=== PATIENT | female | born 1945 | race Caucasian/White ===

== ENCOUNTER 2016-10-22 05:17 | Inpatient (IN) | payer OTHER, MEDICARE ==
[2016-09-26 11:13] VITALS: BMI 24.0
--- NOTE | 2016-09-26 11:50 | PAT Medication Instructions ---
Service Date Sep 26, 2016. Current Home Medication List Aspirin (Aspirin Ec), 81 MG PO QPM Atorvastatin (Lipitor), 20 MG PO HS Bimatoprost Oph (Lumigan 0.03% Oph), 1 DROP OPR QAM Brimonidine Tartrate-Timolol M (Combigan), 1 DROP OPR BID Ciprofloxacin (Cipro *), 500 MG PO BID Docusate Sodium (Colace), 1 CAP PO PRN Escitalopram (Lexapro), 10 MG PO QAM Naproxen (Aleve), 220 MG PO PRN Medication Instructions For Your Scheduled Surgery Ciprofloxacin (Cipro *), 500 MG PO BID (to be completed prior to surgery) - Check with surgeon for instructions: Naproxen (Aleve), 220 MG PO PRN Aspirin (Aspirin Ec), 81 MG PO QPM - Hold the following medications the morning of surgery: Docusate Sodium (Colace), 1 CAP PO PRN - Take the following medications the morning of surgery with a sip of water: Escitalopram (Lexapro), 10 MG PO QAM Brimonidine Tartrate-Timolol M (Combigan), 1 DROP OPR BID Bimatoprost Oph (Lumigan 0.03% Oph), 1 DROP OPR QAM - Take the following medications as scheduled the night before surgery: Docusate Sodium (Colace), 1 CAP PO PRN Brimonidine Tartrate-Timolol M (Combigan), 1 DROP OPR BID Atorvastatin (Lipitor), 20 MG PO HS If you have any questions please call us at [phone] (Cinthya Connor PA-C) or [phone] or [phone]
[2016-09-26 12:22] LABS: BASO % 0.2 %; BASO ABS # 0.02 K/uL (0-0.2); COMPLETE YES; EOS % 0.6 %; HEMATOCRIT 43.2 % (37-47); IG% 0.2 %; LYMPH % 15.2 %; LYMPH ABS # 1.43 K/uL (1.2-3.4); MEAN CELL VOLUME 94.9 fL (80-100); MEAN CORPUSCULAR HEMOGLOBIN 31.4 pg (25-34); MEAN CORPUSCULAR HGB CONC 33.1 g/dl (32-36); MEAN PLATELET VOLUME 9.5 fL (7.4-10.4); NEUT % 78.8 %; PLATELET COUNT 297 K/uL (130-400); RED BLOOD COUNT 4.55 M/uL (4.2-5.4); WHITE BLOOD COUNT 9.43 K/uL (4.8-10.8)
[2016-09-26 12:26] LABS: URINE APPEARANCE CLEAR (CLEAR); URINE BILIRUBIN NEG (NEG); URINE COLOR YELLOW; URINE NITRITE NEG (NEG); URINE SPECIFIC GRAVITY 1.014 (1.000-1.030); UROBILINOGEN NEG (NEG)
[2016-09-26 12:29] LABS: MANUAL MICROSCOPIC REQUIRED? NO; REVIEW REQ? NO
[2016-09-26 12:53] LABS: BUN/CREATININE RATIO 30.7 (10-20); CREATININE 0.67 mg/dl (0.60-1.20); POTASSIUM 3.7 mmol/L (3.5-5.1)
[2016-10-22] VITALS (8 sets, daily range): BP systolic 115–149; BP diastolic 68–84; PULSE 69–86; TEMP 36.3–36.8; O2SAT 92–100; Ht 154.9 cm; Wt 58.7 kg
[~2016-10-22] VITALS: Ht 154.9 cm; Wt 58.7 kg
[~2016-10-22 05:17] MED LIST: ASPI81TA28 PO; ATOR-22 PO; BIMA0.038 OPR; BRIM0.2S OPR; CPR500 PO; DOCU-94 PO; ESCI10TA17 PO; NAPR1TAB9 PO
[2016-10-22] MEDS ORDERED: LACTATED RINGER'S 1000ML 1,000 ML IV SCH (06:00)
[2016-10-22] MEDS ORDERED: CEFAZOLIN 2000 MG/60 ML D5W 60 ML IV SCH (06:00)
[2016-10-22] MEDS ORDERED: CeleBREX 200 MG CAP PO SCH (06:00)
[2016-10-22] MEDS ORDERED: PREGABALIN 75 MG CAP PO SCH (06:00)
[2016-10-22] MEDS ORDERED: NEOSTIGMINE METHYLSULFATE 5 MG/5 ML SYR ONE (06:22)
[2016-10-22] MEDS ORDERED: FENTANYL CITRATE INJ 50 MCG/1 ML 2 ML VIAL ONE ×2 (06:22→09:56)
[2016-10-22] MEDS ORDERED: ROCURONIUM BROMIDE 10 MG/ML 5 ML VIAL ONE ×2 (06:22→08:50)
[2016-10-22] MEDS ORDERED: DEXAMETHASONE SOD INJ 4 MG/ML VIAL ONE (06:22)
[2016-10-22] MEDS ORDERED: MIDAZOLAM HCL 1 MG/ML 2ML VIAL ONE (06:22)
[2016-10-22] MEDS ORDERED: ONDANSETRON INJ 2 MG/ML 2 ML VIAL ONE (06:22)
[2016-10-22] MEDS ORDERED: LIDOCAINE HCL 2% 2 ML VIAL (20MG/ML) ONE (06:22)
[2016-10-22] MEDS ORDERED: PROPOFOL IV EMULSION 10 MG/ML 20 ML VIAL IV ONE (06:22)
[2016-10-22] MEDS ORDERED: GLYCOPYRROLATE INJ 0.2 MG/ML VIAL ONE (06:22)
--- NOTE | 2016-10-22 07:22 | History and Physical ---
History & Physical Date Oct 22, 2016. Chief Complaint LBP and gonzales hip pain History of Present Illness The patient is a 70 year old female with complaints of above for months that severely limit ambulation. She had a prior fusion L4-S1 and did well for a number of years but has now developed degen scoliosis above the fusion and L3-4 spinal stenosis. Failed to see improvement with PT/ESIs. Past Medical/Surgical History lumbar fusion colonoscopy hi chol OA nephrolithiasis current smoker Additional History Hepatic Disease: No Endocrine Disorder: No Kidney Disease: No Hypertension: No Heart Disease: No Bleeding Tendencies: No Infectious Diseases: No Allergies Coded Allergies: Simvastatin (Verified Allergy, Intermediate, rash, 10/22/16) Home Medications Scheduled Aspirin (Aspirin Ec), 81 MG PO QPM Atorvastatin (Lipitor), 20 MG PO HS Bimatoprost Oph (Lumigan 0.03% Oph), 1 DROP OPR QAM Brimonidine Tartrate-Timolol M (Combigan), 1 DROP OPR BID Docusate Sodium (Colace), 1 CAP PO PRN Escitalopram (Lexapro), 10 MG PO QAM Naproxen (Aleve), 220 MG PO PRN Physical Examination Skin: warm/dry Eyes: normal inspection ENT: normal ENT inspection Head: normocephalic, atraumatic Neck: supple, trachea midline Respiratory/Chest: lungs clear, no respiratory distress Cardiovascular: regular rate, rhythm Back: normal inspection (midline scar) Extremities: normal inspection Neurologic/Psych: no motor/sensory deficits, alert, normal reflexes, oriented x 3 Diagnosis Degen scoliosis/L3-4 stenosis/prior fusion L4-S1 Plan of Treatment possible HWR L4-S1, decompression L3-4, extension of fusion to probable L1
[2016-10-22] MEDS ORDERED: OXYC-57 PO (07:26)
--- NOTE | 2016-10-22 07:27 | Discharge Instructions ---
Discharge Instructions Admission Reason for Admission: Lumbar Spinal Stenosis Discharge Discharge Diagnosis / Problem: Lumbar Stenosis Discharge Goals Goal(s): Decrease discomfort, Improve function, Increase independence Activity Recommendations Activity Limitations: as noted below Lifting Limitations: no more than 5 pounds Exercise/Sports Limitations: until after follow-up appointment May Resume Sexual Activity: after follow-up appointment . Instructions / Follow-Up Instructions / Follow-Up ACTIVITY RECOMMENDATIONS: SELF CARE INSTRUCTIONS AFTER THORACIC/LUMBAR FUSIONS 1. You may walk to your tolerance. It is good exercise for your legs and back. Expect some back and intermittent leg aches and pains. 2. You may perform "counter-top" level activities (make a sandwich, gloria with a project, etc.). 3. No bending or lifting of more than 10 pounds or back twisting of any nature (roll like a log when turning in bed). 4. You may ride in a car for 20-30 minutes at a time. No driving until after your first visit with your doctor. 5. Frequent changes of position and restricting sitting to 30 minutes at a time will help limit the amount of back spasms and stiffness you may experience. 6. You may discontinue the use of ambulatory aids (cane, crutches, etc.) once your strength and confidence allow. 7. You may platinum smith the shower and let water strike your incision when you arrive home at least once daily. Do not take a tub bath, sit in a hot tub or go into a swimming pool until after your first recheck in the office. SPECIAL CARE INSTRUCTIONS: VERY IMPORTANT TO READ AND REVIEW A. Your surgical incision has been closed with a cosmetic suture under the skin that will dissolve in about 6 weeks. In 14 days, you can use a pair of clean scissors and cut the suture that is left outside of the skin at the ends of your incision. 1. The small skin tapes can be removed 7 days after surgery if they have not fallen off by that point. 2. You may keep the wound open to air as much as possible to promote healing after post-op day number 5 unless told otherwise by your doctor. 3. If you think the wound looks like it is becoming infected (redness or worsening drainage) and/or you are experiencing fever, chill or worsening back pain and muscle spasms, contact the office so that we may evaluate you as soon as possible. B. Complications are uncommon, but please contact us if you have any signs or symptoms of: 1. wound infection (fever higher than 102.5 degrees F, redness, separation of wound, drainage, or increasing pain from the incision) 2. blood clots in legs (pain, swelling, redness and warmth in legs) 3. urinary tract infection (fever higher than 102.5 degrees F, burning upon urination or increased frequency of urination) 4. nerve problems (inability to walk on your toes or heels, numbness, loss of bowel or bladder control) 5. any other symptoms that concern you C. Please call the office at if you have any concerns or questions about your operation or recovery. D. No smoking! Smoking drastically decreases the chance of a solid fusion. E. Do not take any anti-inflammatory medications (Indocin, Advil, Motrin, Aspirin, Naprosyn, etc.) as these may inhibit the chance of a solid fusion. Tylenol is okay to take for pain. MANAGING PAIN AFTER SPINAL SURGERY 1. Narcotic medication is intended for short-term use and will be provided for surgical pain. Surgical pain usually lasts for a period of 4-6 weeks. Narcotic medication includes Percocet, Vicodin, Darvocet, Tylenol #3 or Lortab. 2. Longer-term pain is more appropriately treated with non-narcotic medication such as Tylenol ES. 3. Muscle spasm is not appropriately treated with narcotics. Muscle relaxers such as Soma, Flexeril or Skelaxin can be used along with Tylenol ES. 4. Remember that we all live with some "aches and pains". This is not unusual or uncommon after an injury or as we get older. a. Back pain is expected and may include muscle spasms for 4 to 6 weeks after surgery. The pain should gradually improve. If the pain worsens for no apparent reason, please contact the office. b. Intermittent leg pain may also be experienced and should not be concerned about unless it worsens for no apparent reason. If so, please contact the office. 5. We will provide appropriate medication within the normal guidelines of their prescribed use. We will also be very cautious and aware of potential abuse and extended duration of patients' medication needs. a. Pain medications are for your comfort and to assist with sleep and rest so that the tissue can heal. They are not provided in order to return to normal activity and should not be used through the day. To do so or worsening pain at night can result from ongoing tissue damage and development of tolerance to the prescribed medicine. 6. Please allow 2-3 days to process refills. Prescriptions will not be mailed but must be picked up at the office. FOLLOW UP VISIT: Keep your scheduled follow-up appointment. Any questions, please call the office at . Current Hospital Diet Patient's current hospital diet: Discharge Diet Recommended Diet: Regular Diet Pending Studies Studies pending at discharge: no Medical Emergencies . Who to Call and When: Medical Emergencies: If at any time you feel your situation is an emergency, please call 911 immediately. . Non-Emergent Contact Non-Emergency issues call your: Surgeon Call Non-Emergent contact if: temperature is above 101, your pain is not controlled, your pain is worsening, your pain is unusual for you, your pain is concerning you, wound has increased drainage, wound has increased redness, wound has increased pain, you have any medication questions . "Provider Documentation" section prepared by Celso Guzman. VTE Core Measure Inpt VTE Proph given/why not?: Evon Estrada
[2016-10-22] MEDS ORDERED: BACITRACIN 50000 UNIT VIAL IR ONE (08:15)
[2016-10-22] MEDS ORDERED: THROMBIN 5000 UNITS KIT TOP ONE (08:15)
[2016-10-22] MEDS ORDERED: BUPIVACAINE/EPINEPHRINE 0.5% MPF 1:200,000 30 ML VIAL INJ ONE (08:15)
[2016-10-22] MEDS ORDERED: THROMBIN FOR SOLN 20000 UNIT KIT TOP ONE ×2 (08:15→08:33)
[2016-10-22] MEDS ORDERED: DURASEAL DURAL SEALANT 5ML TOP ONE (09:15)
--- NOTE | 2016-10-22 09:16 | [facility] Post Operative Brief Note ---
Immediate Operative Summary Operative Date Oct 22, 2016. Pre-Operative Diagnosis Degenerative scoliosis, L3-4 stenosis, prior fusion L4-S1 Post-Operative Diagnosis Degenerative scoliosis, L3-4 stenosis, prior fusion L4-S1 Procedure(s) Performed L3-L4 Decompression, L1-L3 Decompression Posterior Spinal Fusion; Infuse; Arteriocyte; Allograft. Surgeon Dr. Naveen Charles Architectural Associate Surgeon(s) Celso Guzman PA-C Estimated Blood Loss 150ML Findings dict Specimens None per surgeon
--- NOTE | 2016-10-22 09:28 | DIAGNOSTIC IMAGING REPORT ---
LUMBAR SPINE, INTRAOPERATIVE FLUOROSCOPY HISTORY: L1-L3 decompression and fusion. FLUOROSCOPY TIME: 8 seconds. FINDINGS: Intraoperative fluoroscopy was provided for the lumbar spine. 2 fluoroscopic spot images were obtained. There is L1-L3 posterior decompression and fusion which is connected to the lower lumbar spine fusion. Hardware appears intact. IMPRESSION: Fluoroscopy provided for a L1-L3 posterior decompression and fusion. Electronically signed by: Guy Fermin M.D. 10/22/2016 9:25 AM Dictated Date/Time: 10/22/2016 9:24 AM
[2016-10-22] MEDS ORDERED: LORAZEPAM 0.5 MG TAB PO PRN (09:30)
[2016-10-22] MEDS ORDERED: HYDROmorphone INJ 0.5 MG/0.5 ML SYR IV PRN (09:30)
[2016-10-22] MEDS ORDERED: EpHEDrine SULFATE INJ 50 MG/ML AMP IV PRN (09:30)
[2016-10-22] MEDS ORDERED: SOD PHOSPHATE/SOD BIPHOSPHATE ENEMA 132 ML BTL PR PRN (09:30)
[2016-10-22] MEDS ORDERED: hydrOXYzine HCL 25 MG TAB PO PRN (09:30)
[2016-10-22] MEDS ORDERED: MAGNESIUM HYDROXIDE SUSP 30 ML UDC PO PRN (09:30)
[2016-10-22] MEDS ORDERED: ALUMINUM/MAGNESIUM SUSP 30 ML UDC PO PRN (09:30)
[2016-10-22] MEDS ORDERED: ONDANSETRON INJ 2 MG/ML 2 ML VIAL IV PRN ×2 (09:30)
[2016-10-22] MEDS ORDERED: BISACODYL 10 MG SUPP PR PRN (09:30)
[2016-10-22] MEDS ORDERED: LORAZEPAM INJ 0.5 MG in SYRINGE 0 ML IV PRN (09:30)
[2016-10-22] MEDS ORDERED: METOCLOPRAMIDE HCL INJ 5 MG/ML 2 ML VIAL IV PRN (09:30)
[2016-10-22] MEDS ORDERED: FENTANYL CITRATE INJ 50 MCG/1 ML 2 ML VIAL IV PRN (09:30)
[2016-10-22] MEDS ORDERED: FAMOTIDINE 20 MG TAB PO PRN (09:30)
[2016-10-22] MEDS ORDERED: ATROPINE SULFATE 0.1 MG/ML 5ML SYR IV PRN (09:30)
[2016-10-22] MEDS ORDERED: ACETAMINOPHEN IV 100 ML IV PRN (09:30)
[2016-10-22] MEDS ORDERED: MoRPHine SULFATE 10 MG/ML CARP/VIAL IV PRN (09:30)
[2016-10-22] MEDS ORDERED: PROMETHAZINE HCL INJ 12.5 MG in SODIUM CHLORIDE 0.9% 50ML 50 ML IV PRN (09:30)
[2016-10-22] MEDS ORDERED: NALOXONE HCL 0.4 MG/1 ML VIAL/CARP IV PRN ×2 (09:30)
[2016-10-22] MEDS ORDERED: MoRPHine SULFATE 1 MG/ML 50 ML PCA CASS ONE (09:34)
--- NOTE | 2016-10-22 10:16 | Anesthesiology Progress Note ---
Anesthesia Post Op Note Date & Time Oct 22, 2016 at 10:15 Vital Signs Pain Intensity: 3 Vital Signs Past 12 Hours Date Time Temp Pulse Resp B/P Pulse Ox O2 Delivery O2 Flow Rate FiO2 10/22/16 10:10 36.8 77 14 127/70 100 Nasal Cannula 4 10/22/16 10:00 74 14 138/76 100 Nasal Cannula 4 10/22/16 09:50 81 14 137/81 100 Mask 10 10/22/16 09:40 83 12 133/76 100 Mask 10 10/22/16 09:30 36.7 88 12 139/72 100 Mask 10 10/22/16 05:42 36.8 76 18 149/84 100 Room Air Notes Mental Status: alert / awake / arousable, participated in evaluation Pt Amnestic to Procedure: Yes Nausea / Vomiting: adequately controlled Pain: adequately controlled Airway Patency, RR, SpO2: stable & adequate BP & HR: stable & adequate Hydration State: stable & adequate Anesthetic Complications: no major complications apparent
--- NOTE | 2016-10-22 11:00 | OPERATIVE REPORT ---
DATE OF OPERATION: 10/22/2016 PREOPERATIVE DIAGNOSES: 1. Previous L4-S1 instrumented fusion. 2. Lumbar degenerative scoliosis. 3. Degenerative disc disease L1-L4. 4. L3-L4 spinal stenosis. POSTOPERATIVE DIAGNOSIS: Same. PROCEDURES: 1. L3 laminectomy with bilateral L3-L4 medial facetectomies. 2. Segmental pedicle screw instrumentation -- bilateral L1, L2 and on the left at L3 with serena connection to L4-L5. 3. Posterior lateral fusion L1-L4 -- bilateral with Infuse BMP on a collagen sponge, tricalcium phosphate, local bone, bone putty and bone marrow aspirate. 4. Right iliac crest bone marrow aspiration and stem cell concentration with Arteriocyte. SURGEON: Dr. Charles. REAL ESTATE SERVICES ADMINISTRATOR: Celso Guzman PA-C. Please note he participated in all portions of the procedure and was critical for performance of the procedure, participated in positioning, prepping, draping, retraction and wound closure. ANESTHESIA: General endotracheal anesthesia. COMPLICATIONS: None. ESTIMATED BLOOD LOSS: Per anesthesia record. OPERATION AND FINDINGS: PROCEDURE: After identification of patient and operative level, she was brought to the OR where she underwent induction of general anesthesia. She was then positioned prone on Thiago OR table with all bony prominences well padded. Care was taken to avoid pressure on the periorbital area. Lumbosacral area was sterilely prepped and draped in usual fashion. Antibiotics were administered. Time-out was performed. Level was confirmed and skin incision made from spinous process of T12-L5. Posterior exposure was accomplished, previous hardware was identified and operative levels were marked. I did an L3 laminectomy with removal of the L3-L4 facets medially and accomplished decompression with removal of ligamentum flavum using Kerrisons. I did encounter a small durotomy centrally at L3-L4 which repaired directly with 6-0 Prolene suture. There was no leak after repair. I applied DuraSeal over the area of leak. No leak was noted at the end of the case. I then proceeded to place pedicle screws bilaterally at L1, L2 and on the left at L3. I did place a screw on the right at L3, but could not connect the rods to the hardware below so I remove the L3 screw on the right to facilitate serena reintroduction. I exposed the fusion mass at L4-5. There was good fusion and I made room to attach connectors on the serena between the L4 and L5 pedicle screws. I then connected rods and these connectors to the cephalad screws bilaterally. I final tightened all screws during introduction of rods. I did correct scoliosis slightly with contamination compression distraction. I then final tightened all screws, applied a crosslink which final tightened, irrigated with bacitracin solution and decorticated the remaining facets and transverse processes from L1 to L4 bilaterally with a high speed randal. I then aspirated bone marrow from the right iliac crest via separate stab incision with a Jamshidi needle concentrated with Arteriocyte and applied to bone graft microbial specialist and applied bone graft described as above in the lateral gutters from L1 to L4 bilaterally. I then closed in layered fashion over JAMEY drain. All sponge and needle counts were correct at the end of the case. I attest to the content of the Intraoperative Record and any orders documented therein. Any exceptio ns are noted below.
[2016-10-22] MEDS: SODIUM CHLORIDE 0.9% 1000ML 1,000 ML IV SCH ×3 (13:49→21:39)
[2016-10-22] MEDS: DEXAMETHASONE INJ 6 MG in SYRINGE 0 ML IV SCH ×2 (13:54→21:38)
[2016-10-22] MEDS: [UNRECOGNIZED DRUG - REMARK] SCH (16:00)
[2016-10-22] MEDS: CEFAZOLIN IV 1,000 MG in DEXTROSE 5% 50ML 50 ML IV SCH (16:09)
[2016-10-22] MEDS: MoRPHine SULFATE 1 MG/ML 50 ML PCA CASS IV PRN (19:04)
[2016-10-22] MEDS: DOCUSATE SODIUM/SENNA 50/8.6MG TAB PO SCH (21:37)
[2016-10-22] MEDS: ASPIRIN 81 MG ECTAB PO SCH (21:37)
[2016-10-22] MEDS: ATORVASTATIN 20 MG TAB PO SCH (21:37)
[2016-10-23] MEDS: CEFAZOLIN IV 1,000 MG in DEXTROSE 5% 50ML 50 ML IV SCH (00:34)
[2016-10-23 03:20] VITALS: BP 119/70; PULSE 76; TEMP 36.8; O2SAT 95
[2016-10-23] MEDS: DEXAMETHASONE INJ 6 MG in SYRINGE 0 ML IV SCH (05:33)
[2016-10-23 06:09] LABS: COMPLETE YES; HEMATOCRIT 33.4 % (37-47); IG% 0.2 %; LYMPH % 5.1 %; MEAN CELL VOLUME 95.7 fL (80-100); MEAN CORPUSCULAR HEMOGLOBIN 31.2 pg (25-34); MEAN CORPUSCULAR HGB CONC 32.6 g/dl (32-36); MEAN PLATELET VOLUME 9.5 fL (7.4-10.4); MONO % 5.1 %; NEUT % 89.6 %; PLATELET COUNT 226 K/uL (130-400); RED BLOOD COUNT 3.49 M/uL (4.2-5.4)
[2016-10-23] MEDS ORDERED: NURSING VERBAL MED ORDER ONE ×3 (06:30→10:30)
[2016-10-23 06:41] LABS: BUN/CREATININE RATIO 20.3 (10-20); CALCIUM 8.4 mg/dl (8.5-10.1); CREATININE 0.64 mg/dl (0.60-1.20); POTASSIUM 4.3 mmol/L (3.5-5.1)
[2016-10-23] MEDS: MoRPHine SULFATE 1 MG/ML 50 ML PCA CASS IV PRN (07:02)
[2016-10-23 07:50] VITALS: O2SAT 95
[2016-10-23] MEDS: [UNRECOGNIZED DRUG - REMARK] SCH ×4 (07:54→22:53)
[2016-10-23] MEDS: ESCITALOPRAM OXALATE 10 MG TAB PO SCH (07:55)
[2016-10-23] MEDS: BIMATOPROST 0.01% OP SOLN 2.5 ML BTL OPR SCH (07:55)
[2016-10-23 08:23] VITALS: BP 137/82; PULSE 71; TEMP 36.7; O2SAT 97
[2016-10-23] MEDS: SODIUM CHLORIDE 0.9% 1000ML 1,000 ML IV SCH (09:14)
--- NOTE | 2016-10-23 10:40 | Anesthesiology Progress Note ---
Anesthesia Post Op Note Date & Time Oct 23, 2016 at 10:39 Vital Signs Pain Intensity: 1.0 Vital Signs Past 12 Hours Date Time Temp Pulse Resp B/P Pulse Ox O2 Delivery O2 Flow Rate FiO2 10/23/16 08:23 36.7 71 16 137/82 97 Room Air 10/23/16 07:50 95 Room Air 10/23/16 03:20 36.8 76 18 119/70 95 Room Air 10/22/16 23:35 36.4 72 18 133/77 94 Room Air Notes Mental Status: alert / awake / arousable, participated in evaluation Pt Amnestic to Procedure: Yes Nausea / Vomiting: adequately controlled Pain: adequately controlled Airway Patency, RR, SpO2: stable & adequate BP & HR: stable & adequate Hydration State: stable & adequate Anesthetic Complications: no major complications apparent
--- NOTE | 2016-10-23 12:18 | Orthopedic Progress Note ---
Orthopedic Progress Note Date of Service Oct 23, 2016. Subjective Post OP Day: 1 Reports: feeling well, pain controlled w PO medications, Denies: SOB, calf pain , chest pain, complaints, light headedness, nausea / vomiting Additional Notes: Doing well, pain is well controlled, she reports no issues, medically stable. Objective calves soft nontender, N/V intact, capillary refill less than 2 sec., dressing C /D/I, toes mobile, hemovac drainage Date Time Temp Pulse Resp B/P Pulse Ox O2 Delivery O2 Flow Rate FiO2 10/23/16 08:23 36.7 71 16 137/82 97 Room Air 10/23/16 07:50 95 Room Air 10/23/16 03:20 36.8 76 18 119/70 95 Room Air 10/22/16 23:35 36.4 72 18 133/77 94 Room Air 10/22/16 20:40 Room Air 10/22/16 19:52 36.6 86 16 117/68 92 Room Air 10/22/16 15:23 36.6 69 16 127/75 97 Nasal Cannula 2.0 10/22/16 13:52 36.7 81 16 123/74 100 Nasal Cannula 2.0 10/22/16 12:45 36.4 79 16 118/78 100 4.0 Laboratory Results 24 Hours: Test 10/23/16 05:38 White Blood Count 13.60 K/uL Red Blood Count 3.49 M/uL Hemoglobin 10.9 g/dL Hematocrit 33.4 % Mean Corpuscular Volume 95.7 fL Mean Corpuscular Hemoglobin 31.2 pg Mean Corpuscular Hemoglobin Concent 32.6 g/dl Platelet Count 226 K/uL Mean Platelet Volume 9.5 fL Neutrophils (%) (Auto) 89.6 % Lymphocytes (%) (Auto) 5.1 % Monocytes (%) (Auto) 5.1 % Eosinophils (%) (Auto) 0.0 % Basophils (%) (Auto) 0.0 % Neutrophils # (Auto) 12.18 K/uL Lymphocytes # (Auto) 0.70 K/uL Monocytes # (Auto) 0.69 K/uL Eosinophils # (Auto) 0.00 K/uL Basophils # (Auto) 0.00 K/uL Assessment & Plan Assessment: s/p decompression and revision lumbar fusion Plan: Pain control, PT, DVT prophylaxis, Soc Service Consult, Disposition pending
[2016-10-23] MEDS: OXYCODONE HCL IR 5 MG TAB (IMMEDIATE RELEASE) PO PRN (15:37)
[2016-10-23 15:45] VITALS: BP 154/78; PULSE 71; TEMP 36.5; O2SAT 98
[2016-10-23] MEDS: DOCUSATE SODIUM/SENNA 50/8.6MG TAB PO SCH (20:31)
[2016-10-23] MEDS: ATORVASTATIN 20 MG TAB PO SCH (20:32)
[2016-10-23] MEDS: ASPIRIN 81 MG ECTAB PO SCH (20:32)
[2016-10-23 23:45] VITALS: BP 152/92; PULSE 75; TEMP 36.6; O2SAT 94
[2016-10-24] MEDS: OXYCODONE HCL IR 5 MG TAB (IMMEDIATE RELEASE) PO PRN ×2 (05:45→11:22)
[2016-10-24] MEDS ORDERED: POLYETHYLENE (MIRALAX) 17 GM PACK PO SCH (06:00)
--- NOTE | 2016-10-24 07:05 | Orthopedic Progress Note ---
Orthopedic Progress Note Date of Service Oct 24, 2016. Subjective Reports: feeling well, pain controlled w PO medications, Denies: SOB, calf pain , chest pain, complaints, light headedness, nausea / vomiting Additional Notes: Doing well, walking halls w/o assistance, no new issues, remains medically stable. Objective calves soft nontender, N/V intact, capillary refill less than 2 sec., dressing C /D/I, A&O x3, toes mobile, hemovac drainage Date Time Temp Pulse Resp B/P Pulse Ox O2 Delivery O2 Flow Rate FiO2 10/23/16 23:45 36.6 75 16 152/92 94 Room Air 10/23/16 19:15 Room Air 10/23/16 15:45 36.5 71 16 154/78 98 Room Air 10/23/16 08:23 36.7 71 16 137/82 97 Room Air 10/23/16 07:50 95 Room Air Assessment & Plan Assessment: s/p decompression and revision lumbar fusion Plan: Pain control, PT, DVT prophylaxis, Disposition pending
[2016-10-24 07:21] VITALS: BP 114/67; PULSE 78; TEMP 36.5; O2SAT 96
[2016-10-24] MEDS: [UNRECOGNIZED DRUG - REMARK] SCH (08:00)
[2016-10-24] MEDS: BIMATOPROST 0.01% OP SOLN 2.5 ML BTL OPR SCH (08:07)
[2016-10-24] MEDS: ESCITALOPRAM OXALATE 10 MG TAB PO SCH (08:07)
[2016-10-24 12:38] VITALS: BP 114/67; PULSE 78; TEMP 36.5; O2SAT 96
--- NOTE | 2016-11-04 11:23 | DISCHARGE SUMMARY ---
PRINCIPAL DIAGNOSIS: Previous L4-S1 instrumented fusion, lumbar degenerative scoliosis, degenerative disc disease L1-L4, L3-L4 spinal stenosis. POSTOPERATIVE DIAGNOSIS: Remains the same. PROCEDURE: L3 laminectomy with bilateral L3-L4 medial facetectomies, pedicle screw instrumentation, bilateral, L1, L2 and L3 with serena connection to L4-L5, posterolateral fusion L1-L4. Right iliac crest bone marrow aspiration with stem cell concentration. SURGEON: Dr. Naveen Charles. HEALTHCARE SCIENCE SPECIALIST: Celso Guzman PA-C. HISTORY OF PRESENT ILLNESS: Please refer to EMR. HOSPITAL COURSE: On 10/22/2016 Ms. Perez was admitted to [facility] for the above procedure. She was taken to preoperative holding where she was identified, evaluated and cleared for surgical management. She was transported to the operating room, introduced with general endotracheal anesthesia. Sterile conditions were set and she successfully underwent the procedure without complication or issue. She was awakened in stable and satisfactory condition, taken to postoperative recovery. Here her vital signs and pain were monitored and managed properly. She remained medically stable and was taken to the orthopedic floor for continued postoperative care. Throughout her stay, her pain was well managed. Vital signs and labs were routinely monitored and managed through physician direction. She participated in physical therapy with good noted progress. DVT and GI prophylactic measures were taken. On the date of 10/24/2016 after provider evaluation she was indicated for return home. On this date, she was discharged from [facility]. DISPOSITION: Home. DISPOSITION CONDITION: Stable. NOTED COMPLICATIONS OR ISSUES: Zero. DISCHARGE INSTRUCTIONS: Please refer to EMR.
== END 2016-10-24 13:30 | disposition home health service (06) | DRG 457 ==
LOC: ENRESERVTM → ENRESERVDT → C.ACU 05:17 → C.MSN 07:55
PROVIDERS: ADMIT Orthopaedic Surgery Orthopaedic Surgery of the Spine; ATTEND Orthopaedic Surgery Orthopaedic Surgery of the Spine
PROC: 00Q20ZZ Repair Dura Mater, Open Approach (ICD-10-PCS; principal; 2016-10-22 07:30)
PROC: 0SG0071 Fusion of Lumbar Vertebral Joint with Autologous Tissue Substitute, Posterior Approach, Posterior Column, Open Approach (ICD-10-PCS; principal; 2016-10-22 07:30)
PROC: 0SG10J1 Fusion of 2 or more Lumbar Vertebral Joints with Synthetic Substitute, Posterior Approach, Posterior Column, Open Approach (ICD-10-PCS; principal; 2016-10-22 07:30)
PROC: 3E0V0GB Introduction of Recombinant Bone Morphogenetic Protein into Bones, Open Approach (ICD-10-PCS; principal; 2016-10-22 07:30)
PROC: 07DR3ZZ Extraction of Iliac Bone Marrow, Percutaneous Approach (ICD-10-PCS; principal; 2016-10-22 07:30)
DX: M41.9 Scoliosis, unspecified (principal); G97.41 Accidental puncture or laceration of dura during a procedure; M48.06 Spinal stenosis, lumbar region; M51.36 Other intervertebral disc degeneration, lumbar region; F17.200 Nicotine dependence, unspecified, uncomplicated

== ENCOUNTER 2016-12-22 10:10 | Inpatient (IN) | payer OTHER, MEDICARE ==
[~2016-12-22] VITALS: Ht 154.9 cm; Wt 57.3 kg
[~2016-12-22 10:10] MED LIST changes: -CPR500 PO; -NAPR1TAB9 PO; +OXYC-57 PO
[2016-12-22] MEDS ORDERED: BIMA0.01 OPR (10:34)
[2016-12-22] MEDS ORDERED: NAPR1TAB9 PO (10:34)
[2016-12-22 10:49] LABS: BASO % 0.1 %; BASO ABS # 0.01 K/uL (0-0.2); COMPLETE YES; EOS % 0.2 %; HEMATOCRIT 40.6 % (37-47); IG% 0.3 %; LYMPH % 6.9 %; LYMPH ABS # 0.99 K/uL (1.2-3.4); MEAN CELL VOLUME 94.2 fL (80-100); MEAN CORPUSCULAR HEMOGLOBIN 31.6 pg (25-34); MEAN CORPUSCULAR HGB CONC 33.5 g/dl (32-36); MEAN PLATELET VOLUME 9.4 fL (7.4-10.4); MONO % 5.4 %; NEUT % 87.1 %; PLATELET COUNT 278 K/uL (130-400); RED BLOOD COUNT 4.31 M/uL (4.2-5.4); WHITE BLOOD COUNT 14.35 K/uL (4.8-10.8)
[2016-12-22 10:58] LABS: URINE APPEARANCE CLOUDY (CLEAR); URINE COLOR DK YELLOW; URINE NITRITE NEG (NEG); URINE SPECIFIC GRAVITY 1.025 (1.000-1.030); UROBILINOGEN NEG (NEG); ZZUR CULT IF INDIC CLEAN CATCH YES
[2016-12-22 11:07] LABS: MANUAL MICROSCOPIC REQUIRED? NO; REVIEW REQ? YES; URINE BILIRUBIN NEG (NEG)
[2016-12-22 11:15] LABS: URINE EPITHELIAL CELL AUTO 0-5 /lpf (0-5)
[2016-12-22 11:17] LABS: BUN/CREATININE RATIO 17.1 (10-20); CALCIUM 9.2 mg/dl (8.5-10.1); CREATININE 0.91 mg/dl (0.60-1.20); POTASSIUM 3.2 mmol/L (3.5-5.1)
[2016-12-22] MEDS ORDERED: SODIUM CHLORIDE 0.9% 500ML 500 ML IV STA (12:10)
[2016-12-22] MEDS ORDERED: MoRPHine SULFATE 4 MG/ML 1 ML CARP\\VIAL IV STA (12:10)
[2016-12-22] MEDS ORDERED: ONDANSETRON INJ 2 MG/ML 2 ML VIAL IV STA (12:10)
[2016-12-22] MEDS ORDERED: OPTIRAY 320 IV PRN (12:15)
--- NOTE | 2016-12-22 16:17 | DIAGNOSTIC IMAGING REPORT ---
ABDOMEN AND PELVIS CT WITH IV AND ORAL CONTRAST CT DOSE: 322.01 mGy.cm HISTORY: Pain lower abd pain TECHNIQUE: Multiaxial CT images of the abdomen and pelvis were performed following the use of intravenous and oral contrast. COMPARISON STUDY: None. FINDINGS: Mild bibasilar atelectatic change. Small hiatal hernia. Multiple hepatic cysts. Gallbladder slightly distended. Mild cortical scarring of the kidneys. Small right renal cyst. No evidence for hydronephrosis. Diffuse wall thickening of the cecum, terminal ileum, and proximal a sending colon. Trace amount of reactive pericolonic infiltrative change in the lower right paracolic gutter region. Diagnostic considerations include nonspecific focal colitis, focal diverticulitis, versus nonspecific inflammatory bowel change. Possibility of neoplastic process is not excluded. Moderate distention of the small bowel proximal to this level. No significant colonic distention. IMPRESSION: 1. Considerable edematous change of the cecum, terminal ileum, and proximal a sending colon. 2. Mild/moderate pericolonic infiltrative change although there is no evidence for abscess or collection. 3. Considerations must include localized diverticulitis, nonspecific colitis or inflammatory bowel change, versus the less likely possibility of neoplasm. 4. Moderate small bowel distention proximal to the terminal ileum although a true obstructive pattern is not seen. 5. Mild gallbladder distention with a small gallstone the region of the gallbladder neck. 6. Multiple hepatic as well as right renal cysts. Electronically signed by: Misbah Salter M.D. 12/22/2016 4:15 PM Dictated Date/Time: 12/22/2016 4:10 PM
[2016-12-22] MEDS ORDERED: METRONIDAZOLE 500MG / 100ML NSS IV STA (16:53)
[2016-12-22] MEDS ORDERED: CIPROFLOXACIN 400MG / 200ML D5W IV STA (16:53)
--- NOTE | 2016-12-22 17:54 | EMERGENCY ROOM VISIT NOTE ---
History Report prepared by Altagracia: Melissa Ramires Under the Supervision of: Dr. Kenneth Khalil D.O. First contact with patient: 11:15 Chief Complaint: ABDOMINAL PAIN Stated Complaint: INFLAMED BOWEL & UTI History of Present Illness The patient is a 71 year old female who presents to the Emergency Room with complaints of persistent abdominal pain which started at 0300 2 days ago. She woke up with pain in her stomach and was in pain for the rest of the day. Yesterday morning she describes the pain was more severe. She went to the hospital where they told her she was dehydrated and had inflamed bowels. She was found to have a UTI and was started on antibiotics. She has had problems with her bowel movements since she had back surgery. This morning she had a bowel movement and reports that it was painful. She did not check for blood. She did not feel better afterwards. She took miralax with juice, but still has not experienced any relief. She denies any other complaints. CT was performed at [facility] and showed thickening of the bowel wall. No obvious obstruction. Source of History: patient Onset: at 0300 2 days ago Position: abdomen Symptom Intensity: severe Timing: other (persistent) Note: Pt reports no other symptoms. Review of Systems See HPI for pertinent positives & negatives. A total of 10 systems reviewed and were otherwise negative. Past Medical & Surgical Medical Problems: (1) Colitis (2) Scoliosis Family History Diabetes mellitus FH: gallbladder disease FH: heart disease Hypertension Social History Smoking Status: Current Every Day Smoker Alcohol Use: none Marital Status: Housing Status: lives alone Occupation Status: retired Current/Historical Medications Scheduled Aspirin (Aspirin Ec), 81 MG PO QPM Atorvastatin (Lipitor), 20 MG PO HS Bimatoprost (Lumigan), 1 DROPS OPR HS Brimonidine Tartrate-Timolol M (Combigan), 1 DROP OPR BID Docusate Sodium (Colace), 1 CAP PO PRN Escitalopram (Lexapro), 10 MG PO QAM Scheduled PRN Naproxen (Aleve), 220 MG PO DAILY PRN for Pain Allergies Coded Allergies: Simvastatin (Verified Allergy, Intermediate, rash, 10/22/16) Physical Exam Vital Signs Date Time Temp Pulse Resp B/P Pulse Ox O2 Delivery O2 Flow Rate FiO2 12/22/16 18:04 84 18 122/72 97 Room Air 12/22/16 15:02 86 18 133/74 98 Room Air 12/22/16 12:28 91 12/22/16 12:24 98 Room Air 12/22/16 12:08 94 18 134/68 97 Room Air 12/22/16 10:14 37.0 76 18 117/81 99 Room Air Physical Exam GENERAL: sitting up in bed, disheveled, no acute distress EYE EXAM: normal conjunctiva OROPHARYNX: no exudate, no erythema, lips, buccal mucosa, and tongue normal and mucous membranes are moist NECK: supple, no nuchal rigidity, no adenopathy, non-tender LUNGS: Clear to auscultation. Normal chest wall mechanics HEART: no murmurs, S1 normal and S2 normal ABDOMEN: abdomen soft, normo-active bowel sounds, no masses, no rebound or guarding. Tenderness to palpation of the lower abdomen. BACK: Back is symmetrical on inspection and there is no deformity, no midline tenderness, no CVA tenderness. SKIN: no rashes and no bruising UPPER EXTREMITIES: upper extremities are grossly normal. LOWER EXTREMITIES: No pitting edema. NEURO EXAM: Normal sensorium, cranial nerves II-XII grossly intact, normal speech, no gross weakness of arms, no gross weakness of legs. Medical Decision & Procedures ER Provider Diagnostic Interpretation: Radiology results have been interpreted by the radiologist and reviewed by me. ABDOMEN AND PELVIS CT WITH IV AND ORAL CONTRAST CT DOSE: 322.01 mGy.cm HISTORY: Pain lower abd pain TECHNIQUE: Multiaxial CT images of the abdomen and pelvis were performed following the use of intravenous and oral contrast. COMPARISON STUDY: None. FINDINGS: Mild bibasilar atelectatic change. Small hiatal hernia. Multiple hepatic cysts. Gallbladder slightly distended. Mild cortical scarring of the kidneys. Small right renal cyst. No evidence for hydronephrosis. Diffuse wall thickening of the cecum, terminal ileum, and proximal a sending colon. Trace amount of reactive pericolonic infiltrative change in the lower right paracolic gutter region. Diagnostic considerations include nonspecific focal colitis, focal diverticulitis, versus nonspecific inflammatory bowel change. Possibility of neoplastic process is not excluded. Moderate distention of the small bowel proximal to this level. No significant colonic distention. IMPRESSION: 1. Considerable edematous change of the cecum, terminal ileum, and proximal a sending colon. 2. Mild/moderate pericolonic infiltrative change although there is no evidence for abscess or collection. 3. Considerations must include localized diverticulitis, nonspecific colitis or inflammatory bowel change, versus the less likely possibility of neoplasm. 4. Moderate small bowel distention proximal to the terminal ileum although a true obstructive pattern is not seen. 5. Mild gallbladder distention with a small gallstone the region of the gallbladder neck. 6. Multiple hepatic as well as right renal cysts. Electronically signed by: Misbah Salter M.D. 12/22/2016 4:15 PM Dictated Date/Time: 12/22/2016 4:10 PM Laboratory Results 12/22/16 10:30 Red Blood Count 4.31, Mean Corpuscular Volume 94.2, Mean Corpuscular Hemoglobin 31.6, Mean Corpuscular Hemoglobin Concent 33.5, Mean Platelet Volume 9.4, Neutrophils (%) (Auto) 87.1, Lymphocytes (%) (Auto) 6.9, Monocytes (%) (Auto) 5.4, Eosinophils (%) (Auto) 0.2, Basophils (%) (Auto) 0.1, Neutrophils # (Auto) 12.50, Lymphocytes # (Auto) 0.99, Monocytes # (Auto) 0.77, Eosinophils # (Auto) 0.03, Basophils # (Auto) 0.01 12/22/16 10:30 Test 12/22/16 10:30 12/22/16 10:35 12/22/16 13:59 White Blood Count 14.35 K/uL (4.8-10.8) Red Blood Count 4.31 M/uL (4.2-5.4) Hemoglobin 13.6 g/dL (12.0-16.0) Hematocrit 40.6 % (37-47) Mean Corpuscular Volume 94.2 fL (80-100) Mean Corpuscular Hemoglobin 31.6 pg (25-34) Mean Corpuscular Hemoglobin Concent 33.5 g/dl (32-36) Platelet Count 278 K/uL (130-400) Mean Platelet Volume 9.4 fL (7.4-10.4) Neutrophils (%) (Auto) 87.1 % Lymphocytes (%) (Auto) 6.9 % Monocytes (%) (Auto) 5.4 % Eosinophils (%) (Auto) 0.2 % Basophils (%) (Auto) 0.1 % Neutrophils # (Auto) 12.50 K/uL (1.4-6.5) Lymphocytes # (Auto) 0.99 K/uL (1.2-3.4) Monocytes # (Auto) 0.77 K/uL (0.11-0.59) Eosinophils # (Auto) 0.03 K/uL (0-0.5) Basophils # (Auto) 0.01 K/uL (0-0.2) RDW Standard Deviation 52.7 fL (36.4-46.3) RDW Coefficient of Variation 15.1 % (11.5-14.5) Immature Granulocyte % (Auto) 0.3 % Immature Granulocyte # (Auto) 0.05 K/uL (0.00-0.02) Anion Gap 8.0 mmol/L (3-11) Est Creatinine Clear Calc Drug Dose 43.2 ml/min Estimated GFR () 73.1 Estimated GFR (Non- 63.0 BUN/Creatinine Ratio 17.1 (10-20) Calcium Level 9.2 mg/dl (8.5-10.1) Total Bilirubin 0.6 mg/dl (0.2-1) Aspartate Amino Transf (AST/SGOT) 10 U/L (15-37) Alanine Aminotransferase (ALT/SGPT) 13 U/L (12-78) Alkaline Phosphatase 123 U/L (45-117) Total Protein 8.0 gm/dl (6.4-8.2) Albumin 3.9 gm/dl (3.4-5.0) Globulin 4.1 gm/dl (2.5-4.0) Albumin/Globulin Ratio 1.0 (0.9-2) Lipase 75 U/L (73-393) Urine Color DK YELLOW Urine Appearance CLOUDY (CLEAR) Urine pH 5.0 (4.5-7.5) Urine Specific [place] 1.025 (1.000-1.030) Urine Protein 1+ (NEG) Urine Glucose (UA) NEG (NEG) Urine Ketones TRACE (NEG) Urine Occult Blood NEG (NEG) Urine Nitrite NEG (NEG) Urine Bilirubin NEG (NEG) Urine Urobilinogen NEG (NEG) Urine Leukocyte Esterase TRACE (NEG) Urine WBC (Auto) 5-10 /hpf (0-5) Urine RBC (Auto) 0-4 /hpf (0-4) Urine Hyaline Casts (Auto) 1-5 /lpf (0-5) Urine Epithelial Cells (Auto) 0-5 /lpf (0-5) Urine Bacteria (Auto) 1+ (NEG) Urine Renal Epithelial Cells /lpf (0-5) Urine Pathogenic Casts /lpf (0) Urine Yeast (Auto) (NONE PRSENT) Lactic Acid Level 1.7 mmol/L (0.4-2.0) Laboratory results per my review. Medications Administered Medications (Trade) Dose Ordered Sig/Jose Route Start Time Stop Time Status Last Admin Dose Admin Sodium Chloride (Nss 500ml) 500 ml @ 999 mls/hr Q31M STAT IV 12/22/16 12:10 12/22/16 12:40 DC 12/22/16 12:22 999 MLS/HR Ondansetron HCl (Zofran Inj) 4 mg NOW STAT IV 12/22/16 12:10 12/22/16 12:12 DC 12/22/16 12:22 4 MG Morphine Sulfate (MoRPHine SULFATE INJ) 4 mg NOW STAT IV 12/22/16 12:10 12/22/16 12:12 DC 12/22/16 12:23 4 MG ED Course ED COURSE: Vital signs were reviewed and showed normal vitals. The patients medical record was reviewed Results from [facility] were reviewed. The above diagnostic studies were performed and reviewed. ED treatments and interventions as stated above. 1136: The patient was evaluated in room A9. A complete history and physical examination was performed. 1210: Morphine Sulfate 4 mg IV, Zofran Inj 4 mg IV, NSS 500 ml @ 999 mls/hr IV. 1349: I reevaluated the patient. She is feeling better. 1651: I discussed the patient's case with Alex Torres - Gastroenterology. He suggests the patient be evaluated for further management. 1653: Ciprofloxacin/Dextrose 400 mg IV, Metronidazole 500 mg IV. 1656: I discussed the patient's case with Dr. Haynes [facility] [place] - hospitalist. The patient will be evaluated for further management. 1659: Upon reevaluation, the patient is resting comfortably. I discussed my findings with the patient and she understands and agrees with the treatment plan. Based on the patients age, coexisting illnesses, exam and lab findings the decision to treat as an inpatient was made. The patient remained stable while under my care. The patient will be evaluated for further management. Medical Decision Differential diagnoses includes but is not limited to gastritis, peptic ulcer disease, GERD, gallbladder disease, pancreatitis, small bowel obstruction, acute coronary syndrome, pericarditis, ischemic bowel, irritable bowel disease, irritable bowel syndrome, appendicitis, diverticulitis, malignancy, hernia, urinary tract infection, torsion, [/ectopic (if female)], perforation, trauma, infectious. Patient is a 71-year-old female who presents the ER for lower abdominal pain. This is been present for over 24 hours. She was seen yesterday at an outside hospital and had a CT performed which showed thickening of the colon. She was discharged on antibiotics for UTI. She presents today for worsening of her pain. She is tender on palpation. CT of the abdomen and pelvis shows large amount of inflammation of the bowel wall but without obstruction. I discussed my findings with GI and they recommended admission with IV antibiotics and fluids. Patient was updated at bedside. She was comfortable following a dose of Dilaudid. Differential includes at this time infectious versus ischemia but with a negative lactate I favor that ischemia unlikely. Patient was given IV antibiotics and admitted to internal medicine at this time with an increasing leukocytosis of 14,000, mild hypokalemia and normal LFTs, bilirubin and lipase. Consults Time Called: 1645 Consulting Physician: Alex Torres - Gastroenterology Returned Call: [phone] I discussed the patient's case with him. He suggests the patient be evaluated for further management. Additional Consults: Time Called: 165 Consulted Physician: Dr. Haynes [facility] [place] - hospitalist Returned Call: [phone] Additional Comments: I discussed the patient's case with her. The patient will be evaluated for further management. Impression Primary Impression: Colitis Additional Impressions: Hypokalemia Leukocytosis Scribe Attestation The scribe's documentation has been prepared under my direction and personally reviewed by me in its entirety. I confirm that the note above accurately reflects all work, treatment, procedures, and medical decision making performed by me. Departure Information Dispostion Being Evaluated By Hospitalist Traci Pack M.D. (PCP) Patient Instructions [facility] Problem Qualifiers Additional Impressions: Leukocytosis Leukocytosis type: unspecified Qualified Codes: D72.829 - Elevated white blood cell count, unspecified
[2016-12-22] MEDS ORDERED: METRONIDAZOLE 500MG / 100ML NSS ONE (19:14)
[2016-12-22] MEDS ORDERED: CIPROFLOXACIN 400MG / 200ML D5W ONE (19:14)
[2016-12-22 20:31] VITALS: BP 118/84; PULSE 100; TEMP 37.7; O2SAT 92; Ht 154.9 cm; Wt 57.3 kg
[2016-12-22] MEDS: COMBIGAN~ORDER AWAITING ACTION SCH (21:00)
[2016-12-22] MEDS: ATORVASTATIN 20 MG TAB PO SCH (22:15)
[2016-12-22] MEDS: SODIUM CHLOR 0.45% + 20MEQ KCL 1,000 ML IV SCH (22:15)
[2016-12-22] MEDS: BIMATOPROST 0.01% OP SOLN 2.5 ML BTL OPR SCH (22:15)
[2016-12-22] MEDS ORDERED: POTASSIUM CHLORIDE 20 MEQ TABCR PO STA (23:11)
[2016-12-22 23:14] VITALS: BP 131/67; PULSE 90; TEMP 37.3; O2SAT 93
--- NOTE | 2016-12-22 23:47 | History and Physical ---
History & Physical Date & Time of Service: Dec 22, 2016 at 23:11 Chief Complaint: Abdominal pain Primary Care Physician: Traci Yanes M.D. History of Present Illness Source: patient The patient is a 71-year-old female with a history of lower back pain status post recent lumbar fusion surgery, current smoker, anxiety/depression, and dyslipidemia, who presents to the emergency room with right lower quadrant abdominal pain 2 days. She reports the pain woke her from sleep at 3:00 in the morning 2 days ago. It was constant and located all across the lower abdomen but mostly in the right lower quadrant. She waited over 24 hours before she presented to the [facility] emergency room in [place]. She had a CT scan there which showed some thickening of the colon and she was told she had a UTI. She was given Cipro and discharged home. The pain persisted and she called her doctor who was not able to see her today and recommended that she come to the emergency room. She denies nausea or vomiting but has had a very low appetite the past 2 days. She had one episode of explosive loose bowels this morning which was nonbloody and no melena. She has not had a fever at home, however reports she has been sweaty which is not normal for her. Her CT scan in the ER showed considerable edematous change of the cecum, terminal ileum, and proximal ascending colon with mild/moderate pericolonic infiltrative change although there is no evidence for abscess or collection. There was also some moderate small bowel distention proximal to this portion. She had a leukocytosis with a white blood cell count of 14,006 hypokalemia with a potassium of 3.2 on her admission blood work. Her lactate was normal. The ER doctor discussed the case with the GI personnel clerks supervisor on the phone who thought that this could be ischemic colitis and suggested she may need a colonoscopy. I discussed the case with the general surgeon on-call who will review the CT scan, however thought based on the description by the radiologist that this was very unlikely to be acute appendicitis. She will be admitted for colitis and ileus of an infectious versus inflammatory etiology. Past Medical/Surgical History Past medical history: Hyperlipidemia History of lumbar spinal fusion 2 Current smoker Anxiety/depression Glaucoma Past surgical history: Colonoscopy in approximately 2013 Lumbar fusion 2 Tonsillectomy Family History Diabetes mellitus FH: gallbladder disease FH: heart disease Hypertension Noncontributory Social History Smoking Status: Current Every Day Smoker (currently smokes 6 cigarettes a day for the last 50 years) Alcohol Use: occasionally (1 or 2 glasses of wine per week) Drug Use: none Marital Status: Housing status: lives alone Occupational Status: retired Immunizations History of Influenza Vaccine: Yes Influenza Vaccine Date: Jul 14, 2011 History of Tetanus Vaccine?: Yes Tetanus Immunization Date: Oct 08, 2010 History of Pneumococcal: Yes Pneumococcal Date: Oct 14, 2010 History of Hepatitis B Vaccine: Yes Hepatitis Immunization Date: Oct 14, 2007 Allergies Coded Allergies: Simvastatin (Verified Allergy, Intermediate, rash, 10/22/16) Home Medications Scheduled Aspirin (Aspirin Ec), 81 MG PO QPM Atorvastatin (Lipitor), 20 MG PO HS Bimatoprost (Lumigan), 1 DROPS OPR HS Brimonidine Tartrate-Timolol M (Combigan), 1 DROP OPR BID Docusate Sodium (Colace), 1 CAP PO PRN Escitalopram (Lexapro), 10 MG PO QAM Scheduled PRN Naproxen (Aleve), 220 MG PO DAILY PRN for Pain Review of Systems Constitutional: + sweats, No chills, No fever Eyes: No problem reported ENT: No problem reported Respiratory: No shortness of breath Cardiovascular: No chest pain Abdomen: + diarrhea (1), + pain, No GI bleeding, No constipation, No vomiting Musculoskeletal: No joint pain Genitourinary - Female: No dysuria, No hematuria, No urinary frequency, No urinary urgency Neurologic: No problem reported Psychiatric: No problem reported Endocrine: No problem reported Hematologic / Lymphatic: No problem reported Integumentary: No rash Allergic / Immunologic: No problem reported Physical Exam Vital Signs Date Time Temp Pulse Resp B/P Pulse Ox O2 Delivery O2 Flow Rate FiO2 12/22/16 20:31 37.7 100 14 118/84 92 Room Air 12/22/16 19:51 104 18 125/77 93 12/22/16 19:32 104 18 125/77 93 Room Air 12/22/16 18:04 84 18 122/72 97 Room Air 12/22/16 15:02 86 18 133/74 98 Room Air 12/22/16 12:28 91 12/22/16 12:24 98 Room Air 12/22/16 12:08 94 18 134/68 97 Room Air 12/22/16 10:14 37.0 76 18 117/81 99 Room Air General Appearance: WD/WN, no apparent distress Head: normocephalic, atraumatic Eyes: normal inspection, PERRL, EOMI, sclerae normal ENT: hearing grossly normal, pharynx normal Neck: supple, no adenopathy, thyroid normal, trachea midline Respiratory/Chest: lungs clear, normal breath sounds, no respiratory distress, no accessory muscle use Cardiovascular: regular rate, rhythm, no edema, no gallop, no murmur, normal peripheral pulses Abdomen/GI: soft (but mildly distended), no pulsatile mass, + tenderness ( exquisitely in the right lower quadrant with some guarding without rebound tenderness, otherwise the abdomen was soft and nontender), + abnormal bowel sounds (hyperactive) Back: no muscle spasm, + pertinent finding (large midline incisional scar over the thoracolumbar spine is well healed) Extremities/Musculoskelatal: no calf tenderness, normal capillary refill, no pedal edema, normal range of motion Neurologic/Psych: alert, normal mood/affect, oriented x 3 Skin: normal color, warm/dry, no rash Lymphatic: no adenopathy Diagnostics Laboratory Results Results Past 24 Hours Test 12/22/16 10:30 12/22/16 10:35 12/22/16 13:59 Range/Units White Blood Count 14.35 4.8-10.8 K/uL Red Blood Count 4.31 4.2-5.4 M/uL Hemoglobin 13.6 12.0-16.0 g/dL Hematocrit 40.6 37-47 % Mean Corpuscular Volume 94.2 80-100 fL Mean Corpuscular Hemoglobin 31.6 25-34 pg Mean Corpuscular Hemoglobin Concent 33.5 32-36 g/dl Platelet Count 278 130-400 K/uL Mean Platelet Volume 9.4 7.4-10.4 fL Neutrophils (%) (Auto) 87.1 % Lymphocytes (%) (Auto) 6.9 % Monocytes (%) (Auto) 5.4 % Eosinophils (%) (Auto) 0.2 % Basophils (%) (Auto) 0.1 % Neutrophils # (Auto) 12.50 1.4-6.5 K/uL Lymphocytes # (Auto) 0.99 1.2-3.4 K/uL Monocytes # (Auto) 0.77 0.11-0.59 K/uL Eosinophils # (Auto) 0.03 0-0.5 K/uL Basophils # (Auto) 0.01 0-0.2 K/uL RDW Standard Deviation 52.7 36.4-46.3 fL RDW Coefficient of Variation 15.1 11.5-14.5 % Immature Granulocyte % (Auto) 0.3 % Immature Granulocyte # (Auto) 0.05 0.00-0.02 K/uL Sodium Level 140 136-145 mmol/L Potassium Level 3.2 3.5-5.1 mmol/L Chloride Level 105 98-107 mmol/L Carbon Dioxide Level 27 21-32 mmol/L Anion Gap 8.0 3-11 mmol/L Blood Urea Nitrogen 16 7-18 mg/dl Creatinine 0.91 0.60-1.20 mg/dl Est Creatinine Clear Calc Drug Dose 43.2 ml/min Estimated GFR () 73.1 Estimated GFR (Non- 63.0 BUN/Creatinine Ratio 17.1 10-20 Random Glucose 97 70-99 mg/dl Calcium Level 9.2 8.5-10.1 mg/dl Total Bilirubin 0.6 0.2-1 mg/dl Aspartate Amino Transf (AST/SGOT) 10 15-37 U/L Alanine Aminotransferase (ALT/SGPT) 13 12-78 U/L Alkaline Phosphatase 123 45-117 U/L Total Protein 8.0 6.4-8.2 gm/dl Albumin 3.9 3.4-5.0 gm/dl Globulin 4.1 2.5-4.0 gm/dl Albumin/Globulin Ratio 1.0 0.9-2 Lipase 75 73-393 U/L Urine Color DK YELLOW Urine Appearance CLOUDY CLEAR Urine pH 5.0 4.5-7.5 Urine Specific [place] 1.025 1.000-1.030 Urine Protein 1+ NEG Urine Glucose (UA) NEG NEG Urine Ketones TRACE NEG Urine Occult Blood NEG NEG Urine Nitrite NEG NEG Urine Bilirubin NEG NEG Urine Urobilinogen NEG NEG Urine Leukocyte Esterase TRACE NEG Urine WBC (Auto) 5-10 0-5 /hpf Urine RBC (Auto) 0-4 0-4 /hpf Urine Hyaline Casts (Auto) 1-5 0-5 /lpf Urine Epithelial Cells (Auto) 0-5 0-5 /lpf Urine Bacteria (Auto) 1+ NEG Urine Renal Epithelial Cells 0-5 /lpf Urine Pathogenic Casts 0 /lpf Urine Yeast (Auto) NONE PRSENT Lactic Acid Level 1.7 0.4-2.0 mmol/L Microbiology Results 12/22/16 Urine Culture, Received Pending Diagnostic Radiology CT of the abdomen and pelvis reviewed EKG EKG not performed but ordered at the time of admission Impression Assessment and Plan The patient is a 71-year-old female with a history of lower back pain status post recent lumbar fusion surgery, current smoker, anxiety/depression, and dyslipidemia, who presents to the emergency room with right lower quadrant abdominal pain 2 days, found to have a significant colitis and ileitis. Etiology includes localized diverticulitis, nonspecific colitis or inflammatory bowel change, versus the less likely possibility of neoplasm. She has a leukocytosis with a left shift, and mild tachycardia and therefore has sepsis. Lactate was normal at 1.7. Tachycardia resolved with IV fluids. Colitis/ileitis/sepsis-right lower quadrant abdominal pain with evidence of bowel wall edema and small bowel distention seen on CT without evidence of abscess. Case discussed with general surgery on the phone who did not think these findings would be consistent with an acute appendicitis. -Stable for admission to medical/surgical floor -Start IV Cipro and Flagyl -Check stool studies -Pain control with morphine and Zofran for antiemetic as needed -Keep nothing by mouth and give IV fluids -Follow CBC in the morning -Consult to gastroenterology in case needs colonoscopy -Consult general surgery case ends up needing surgery given the exquisite tenderness and CT findings -Check EKG in case needs procedure or surgery Dyslipidemia-stable -Continue statin Hypokalemia-potassium 3.2 on admission likely due to poor by mouth intake and one episode of diarrhea this morning. -Replace potassium orally and in IV fluids Glaucoma-stable -Continue home eyedrops Current smoker-working on quitting -Tobacco cessation counseling given DVT prophylaxis: SCDs only in case of need for procedure Disposition: Full code, to home when medically stable Level of Care Med/Surg Advanced Directives Existing Living Will: Yes Existing Power of Paleology Teacher: Yes Resuscitation Status FULL RESUSCITATION VTE Prophylaxis VTE Risk Assessment Done? Y/N: Yes Risk Level: Low Given or contraindicated: SCD's Additional Copies To Traci Yanes M.D.
[2016-12-23] MEDS: METRONIDAZOLE / NSS 500 MG in PREMIXED NSS 100 ML IV SCH ×3 (03:49→20:00)
[2016-12-23] MEDS: SODIUM CHLOR 0.45% + 20MEQ KCL 1,000 ML IV SCH ×2 (06:18→17:06)
[2016-12-23 06:41] LABS: BASO % 0.1 %; BASO ABS # 0.01 K/uL (0-0.2); COMPLETE YES; EOS % 0.7 %; HEMATOCRIT 35.3 % (37-47); IG% 0.3 %; LYMPH % 5.8 %; LYMPH ABS # 0.67 K/uL (1.2-3.4); MEAN CELL VOLUME 93.9 fL (80-100); MEAN CORPUSCULAR HEMOGLOBIN 30.9 pg (25-34); MEAN CORPUSCULAR HGB CONC 32.9 g/dl (32-36); MEAN PLATELET VOLUME 9.2 fL (7.4-10.4); MONO % 6.8 %; NEUT % 86.3 %; PLATELET COUNT 256 K/uL (130-400); RED BLOOD COUNT 3.76 M/uL (4.2-5.4); WHITE BLOOD COUNT 11.61 K/uL (4.8-10.8)
[2016-12-23 06:51] VITALS: BP 129/76; PULSE 94; TEMP 37.5; O2SAT 94
[2016-12-23 07:20] LABS: BUN/CREATININE RATIO 15.3 (10-20); CALCIUM 8.8 mg/dl (8.5-10.1); CREATININE 0.59 mg/dl (0.60-1.20); POTASSIUM 3.9 mmol/L (3.5-5.1)
[2016-12-23] MEDS: CIPROFLOXACIN / D5W 400 MG in PREMIXED IN D5W 200 ML IV SCH ×2 (07:45→20:00)
[2016-12-23] MEDS: COMBIGAN~ORDER AWAITING ACTION SCH ×3 (07:45→15:34)
--- NOTE | 2016-12-23 08:31 | SURGICAL CONSULTATION ---
DATE OF CONSULTATION: 12/23/2016 I have been asked by Dr. Haynes to see this 71-year-old female, who was admitted with a complaint of lower abdominal pain, right side greater than left. The patient states that she was well when she went to bed on Thursday night, but then was awakened at 3:00 a.m. on Thursday morning with pain in the, mostly, right lower quadrant. The pain was sharp and has persisted. The severity has waxed and waned; however, yesterday morning it seemed to increase significantly in intensity. She presented to the Emergency Room for further evaluation. She has never had pain like this before. It presently is in the lower abdomen bilaterally, although it is worse on the right. There is no upper abdominal pain. It does not radiate through to her back. She is unsure as to whether or not she had fever with this. She had no chills. She did have nausea 2 days ago, but that has resolved. She had some dry heaves, but no vomiting. Her bowel habits are recently unchanged. She had back surgery in September. Following that, she had some issues with constipation, but that seemed to resolve after she was able to stop the pain medicine and then was able to get her bowels back to her normal pattern. There was no melena or hematochezia. She did have diarrhea here this morning after having had the p.o. contrast for her CAT scan. She has not had dysuria or hematuria, although she was told at the Emergency Room in [place] that she may have a urinary tract infection. She has never had pain like this before. She has never had previous abdominal surgery. She is a smoker. PAST MEDICAL HISTORY: For hypercholesterolemia, glaucoma. PAST SURGICAL HISTORY: For lumbar surgery x2, tonsillectomy and a pilonidal cyst removal. MEDICATIONS AT HOME: Include atorvastatin, aspirin, Lumigan, Combigan, Colace, Lexapro. ALLERGIES: ZOCOR THAT CAUSED A RASH. SOCIAL HISTORY: She smokes less than half a pack per day and drinks alcohol socially. PHYSICAL EXAMINATION: GENERAL: Reveals a well-developed, well-nourished female, who appears to be resting comfortably and is in no acute distress. VITAL SIGNS: Blood pressure 131/67, heart rate 90, respirations 18, temperature is 37.3, temperature maximum 37.7, pulse oximetry 93% on room air. HEENT: Reveals sclerae to be anicteric. Mucous membranes are moist. NECK: Supple, with no adenopathy. BACK: Has no spinal or CVA tenderness. LUNGS: Clear. HEART: Regular. ABDOMEN: Her abdomen has bowel sounds that are present, but are decreased in amount. There is tenderness to palpation significantly in the right lower quadrant, less in the left lower quadrant, none in the upper abdomen. There is fullness in the lower abdomen. EXTREMITIES: Reveal no edema. LABORATORY DATA: WBC this morning is 11.6, down from 14.3 on admission. Her H\T\H is 11.6 and 35.3 with a platelet count of 256,000. Sodium 140, potassium 3.9, chloride 106, CO2 25, BUN 9, creatinine 0.59. Her lactic acid on admission was 1.7, glucose 84, total bilirubin 0.6, AST 8, ALT 11, alkaline phosphatase 107, lipase 75. CT scan of the abdomen and pelvis showed considerable edematous change of the cecum, terminal ileum and proximal ascending colon with [id number] pericolonic infiltrative change, but no evidence for abscess or collection. There is moderate distention of the small bowel proximal to this level. There was mild gallbladder distention with a small gallstone. She has multiple hepatic and renal cysts on the right. ASSESSMENT AND PLAN: This patient has right lower quadrant abdominal pain with edematous small bowel, cecum and proximal ascending colon. This is most likely a form of colitis. It is less likely that this is appendicitis. There is no evidence of abscess or perforation. I agree with conservative management and keeping her n.p.o. and placing her on antibiotics. I do not feel that there is any need for immediate surgical intervention. She will, at some point, need a colonoscopy once this resolves. Thank you for allowing me to see this patient and participate in her care.
[2016-12-23] MEDS: ESCITALOPRAM OXALATE 10 MG TAB PO SCH (09:31)
--- NOTE | 2016-12-23 10:17 | Gastrointestinal Consultation ---
Gastrointestinal Consultation Date of Consultation: Dec 23, 2016 Consulting Physician: Edmond Reason for Consultation: colitis History of Present Illness Patient is a 71 year old female with past medical history significant for prolonged NSAID use, (2 tabs Aleve x 6 months until September), anxiety/ depression and hyperlipemia who presents to the ED for evaluation of abdominal pain and nausea since Thursday. She was seen in [place] ED two days prior and diagnosed with UTI and sent home with Cipro and advised to follow up with her PCP. Her lower abdominal pain had since worsened and she decided to come to the ED here. CT and labs were completed. She is not reporting that her abdominal pain is slightly resolved since moving her bowels. She is experiencing intermittent episodes of sharp stabbing right lower quadrant pain and generalize tenderness x 4 quadrants. No known aggravating or alleviating triggers to the pain. Pain is unchanged during BM. She developed loose stools this morning. She is typically constipated at home, moved small, hard BMs. She states she feels bloating and full of air. No black, bloody stools. Denies fever , chills, chest pain, SOB, nausea, vomiting. C.Diff negative Stool culture & O&P pending. CT abdomen 12/22/16: Mild bibasilar atelectatic change. Small hiatal hernia. Multiple hepatic cysts. Gallbladder slightly distended. Mild cortical scarring of the kidneys. Small right renal cyst. No evidence for hydronephrosis. Diffuse wall thickening of the cecum, terminal ileum, and proximal ascending colon. Moderate small bowel distention proximal to the terminal ileum although a true obstructive pattern is not seen. Trace amount of reactive pericolonic infiltrative change in the lower right paracolic gutter region. Diagnostic considerations include nonspecific focal colitis, focal diverticulitis, versus nonspecific inflammatory bowel change. Possibility of neoplastic process is not excluded. Moderate distention of the small bowel proximal to this level. No significant colonic distention. Colonoscopy 01/12/15: Two 1 to 2 mm polyps in the sigmoid colon. Resected and retrieved. Diverticulosis in the sigmoid colon. Congested mucosa in the distal rectum. Otherwise normal to the terminal ileum, with retroflexed views of the ascending colon and rectum. Past Medical/Surgical History Medical Problems: (1) Constipation Status: Acute (2) Hypokalemia Status: Acute (3) Leukocytosis Status: Acute Family History Diabetes mellitus FH: gallbladder disease FH: heart disease Hypertension Social History Smoking Status: Current Every Day Smoker (currently smokes 6 cigarettes a day for the last 50 years) Alcohol Use: none Drug Use: none Marital Status: Housing Status: lives alone Occupation Status: retired Allergies Coded Allergies: Simvastatin (Verified Allergy, Intermediate, rash, 10/22/16) Current Medications Home Meds and Scripts Medications Dose Route/Sig Max Daily Dose Days Date Category Aleve (Naproxen) 220 Mg Tab 220 Mg PO DAILY PRN 12/22/16 Reported Lumigan (Bimatoprost) 0.01 % Val 1 Drops OPR HS 12/22/16 Reported Colace (Docusate Sodium) 100 Mg Cap 1 Cap PO PRN 30 09/26/16 Reported Combigan (Brimonidine Tartrate-Timolol M) 1 Val Val 1 Drop OPR BID 09/26/16 Reported Lipitor (Atorvastatin Calcium) 20 Mg Tab 20 Mg PO HS 09/26/16 Reported Aspirin Ec (Aspirin) 81 Mg Tab 81 Mg PO QPM 09/26/16 Reported Lexapro (Escitalopram Oxalate) 10 Mg Tab 10 Mg PO QAM 10/02/11 Reported Review of Systems Constitutional: No chills, No fever Respiratory: No cough, No shortness of breath Cardiac: No chest pain, No edema Abdomen: + diarrhea (one episode of loose stools this AM, none sense), + pain, No GI bleeding, No constipation, No nausea, No vomiting Physical Exam Date Time Temp Pulse Resp B/P Pulse Ox O2 Delivery O2 Flow Rate FiO2 12/23/16 06:51 37.5 94 18 129/76 94 Room Air 12/23/16 00:00 Room Air 12/22/16 23:14 37.3 90 18 131/67 93 Room Air 12/22/16 20:31 37.7 100 14 118/84 92 Room Air 12/22/16 19:51 104 18 125/77 93 12/22/16 19:32 104 18 125/77 93 Room Air 12/22/16 18:04 84 18 122/72 97 Room Air 12/22/16 15:02 86 18 133/74 98 Room Air 12/22/16 12:28 91 12/22/16 12:24 98 Room Air 12/22/16 12:08 94 18 134/68 97 Room Air General Appearance: no apparent distress (patient is laying in bed watching TV) Eyes: PERRL ENT: hearing grossly normal Neck: supple, trachea midline Respiratory/Chest: normal breath sounds, no respiratory distress, no accessory muscle use Cardiovascular: regular rate, rhythm, no edema, no gallop, no JVD, no murmur Abdomen: normal bowel sounds, no organomegaly, no pulsatile mass, + distended ( lower abdominal distention, no fluid wave or ascites appreciated), + tenderness Neurologic/Psych: alert, normal mood/affect, oriented x 3 Skin: normal color, no jaundice, warm/dry, no rash Laboratory Results Last 24 Hours Test 12/22/16 10:30 12/22/16 10:35 12/22/16 13:59 12/23/16 04:05 White Blood Count 14.35 K/uL Red Blood Count 4.31 M/uL Hemoglobin 13.6 g/dL Hematocrit 40.6 % Mean Corpuscular Volume 94.2 fL Mean Corpuscular Hemoglobin 31.6 pg Mean Corpuscular Hemoglobin Concent 33.5 g/dl Platelet Count 278 K/uL Mean Platelet Volume 9.4 fL Neutrophils (%) (Auto) 87.1 % Lymphocytes (%) (Auto) 6.9 % Monocytes (%) (Auto) 5.4 % Eosinophils (%) (Auto) 0.2 % Basophils (%) (Auto) 0.1 % Neutrophils # (Auto) 12.50 K/uL Lymphocytes # (Auto) 0.99 K/uL Monocytes # (Auto) 0.77 K/uL Eosinophils # (Auto) 0.03 K/uL Basophils # (Auto) 0.01 K/uL RDW Standard Deviation 52.7 fL RDW Coefficient of Variation 15.1 % Immature Granulocyte % (Auto) 0.3 % Immature Granulocyte # (Auto) 0.05 K/uL Sodium Level 140 mmol/L Potassium Level 3.2 mmol/L Chloride Level 105 mmol/L Carbon Dioxide Level 27 mmol/L Anion Gap 8.0 mmol/L Blood Urea Nitrogen 16 mg/dl Creatinine 0.91 mg/dl Est Creatinine Clear Calc Drug Dose 43.2 ml/min Estimated GFR () 73.1 Estimated GFR (Non- 63.0 BUN/Creatinine Ratio 17.1 Random Glucose 97 mg/dl Calcium Level 9.2 mg/dl Total Bilirubin 0.6 mg/dl Aspartate Amino Transf (AST/SGOT) 10 U/L Alanine Aminotransferase (ALT/SGPT) 13 U/L Alkaline Phosphatase 123 U/L Total Protein 8.0 gm/dl Albumin 3.9 gm/dl Globulin 4.1 gm/dl Albumin/Globulin Ratio 1.0 Lipase 75 U/L Urine Color DK YELLOW Urine Appearance CLOUDY Urine pH 5.0 Urine Specific [place] 1.025 Urine Protein 1+ Urine Glucose (UA) NEG Urine Ketones TRACE Urine Occult Blood NEG Urine Nitrite NEG Urine Bilirubin NEG Urine Urobilinogen NEG Urine Leukocyte Esterase TRACE Urine WBC (Auto) 5-10 /hpf Urine RBC (Auto) 0-4 /hpf Urine Hyaline Casts (Auto) 1-5 /lpf Urine Epithelial Cells (Auto) 0-5 /lpf Urine Bacteria (Auto) 1+ Urine Renal Epithelial Cells /lpf Urine Pathogenic Casts /lpf Urine Yeast (Auto) Lactic Acid Level 1.7 mmol/L Test 12/23/16 06:00 White Blood Count 11.61 K/uL Red Blood Count 3.76 M/uL Hemoglobin 11.6 g/dL Hematocrit 35.3 % Mean Corpuscular Volume 93.9 fL Mean Corpuscular Hemoglobin 30.9 pg Mean Corpuscular Hemoglobin Concent 32.9 g/dl Platelet Count 256 K/uL Mean Platelet Volume 9.2 fL Neutrophils (%) (Auto) 86.3 % Lymphocytes (%) (Auto) 5.8 % Monocytes (%) (Auto) 6.8 % Eosinophils (%) (Auto) 0.7 % Basophils (%) (Auto) 0.1 % Neutrophils # (Auto) 10.03 K/uL Lymphocytes # (Auto) 0.67 K/uL Monocytes # (Auto) 0.79 K/uL Eosinophils # (Auto) 0.08 K/uL Basophils # (Auto) 0.01 K/uL RDW Standard Deviation 52.0 fL RDW Coefficient of Variation 15.3 % Immature Granulocyte % (Auto) 0.3 % Immature Granulocyte # (Auto) 0.03 K/uL Sodium Level 140 mmol/L Potassium Level 3.9 mmol/L Chloride Level 106 mmol/L Carbon Dioxide Level 25 mmol/L Anion Gap 9.0 mmol/L Blood Urea Nitrogen 9 mg/dl Creatinine 0.59 mg/dl Est Creatinine Clear Calc Drug Dose 65.0 ml/min Estimated GFR () 106.1 Estimated GFR (Non- 91.6 BUN/Creatinine Ratio 15.3 Random Glucose 84 mg/dl Calcium Level 8.8 mg/dl Magnesium Level 2.0 mg/dl Total Bilirubin 0.6 mg/dl Direct Bilirubin 0.2 mg/dl Aspartate Amino Transf (AST/SGOT) 8 U/L Alanine Aminotransferase (ALT/SGPT) 11 U/L Alkaline Phosphatase 107 U/L Total Protein 6.3 gm/dl Albumin 2.7 gm/dl Impression Patient is a 71 year old female with abdominal pain, diarrhea and CT evidence suggestive of nonspecific inflammatory changes in the colon. Differentials include infectious colitis, nonspecific colitis, diverticulitis, nonspecific inflammatory bowel change, IBD. These were fully explained to the patient, she verbalized understanding. Plan Trial of bentyl 10 mg QID Trial of simethicone 1 tab QID PRN gas, bloating NPO for bowel rest Hydration with IVF Continue to treat empirically with Cipro/Flagyl Pain medications as needed Stool studies Outpatient colonoscopy in 4-6 weeks w/ Dr. Padilla Call with questions I have seen and examined the patient with Shruthi Reyes whose note reflects our findings and plan. patient seen on 12/23
[2016-12-23] MEDS: MoRPHine SULFATE 2 MG/ML CARP IV PRN (13:07)
[2016-12-23] MEDS: DICYCLOMINE HCL 20 MG TAB PO SCH ×3 (14:16→21:00)
[2016-12-23 14:50] VITALS: BP 140/80; PULSE 98; TEMP 37.3; O2SAT 93
--- NOTE | 2016-12-23 15:11 | Hospitalist Progress Note ---
Hospitalist Progress Note Date of Service Dec 23, 2016. (Calli Castro ., JESSICA) Subjective Pt evaluation today including: conversation w/ patient, physical exam, chart review, lab review, review of inpatient medication list Pain: 7/10 aching lower abdominal pain, mostly in RLQ PO Intake: NPO Voiding: no voiding problems Patient reports feeling better compared to arrival. She states that she currently has a 7/10 aching pain in her lower abdomen, most markedly in her right lower quadrant. This pain is exacerbated by movement and pressure. The patient complains of intermittent nausea. She denies any vomiting. She states that she did have some diarrhea earlier this morning but denies seeing any hematochezia or melena. T the patient also reports some weakness and fatigue. The patient denies fevers, chills, sweats, chest pain, palpitations, claudication, cough, wheezing, shortness of breath, vomiting, dysuria, hematuria , urinary retention, paralysis, numbness and tingling. Additional Comments: See HPI for pertinent positives and negatives. All other systems reviewed and negative. (Calli Castro ., JESSICA) Objective Vital Signs Date Time Temp Pulse Resp B/P Pulse Ox O2 Delivery O2 Flow Rate FiO2 12/23/16 14:50 37.3 98 18 140/80 93 Room Air 12/23/16 08:00 Room Air 12/23/16 06:51 37.5 94 18 129/76 94 Room Air 12/23/16 00:00 Room Air 12/22/16 23:14 37.3 90 18 131/67 93 Room Air 12/22/16 20:31 37.7 100 14 118/84 92 Room Air 12/22/16 19:51 104 18 125/77 93 12/22/16 19:32 104 18 125/77 93 Room Air 12/22/16 18:04 84 18 122/72 97 Room Air 12/22/16 15:02 86 18 133/74 98 Room Air (Calli Castro PA-C) Physical Exam General Appearance: WD/WN, no apparent distress Eyes: normal inspection, PERRL, EOMI ENT: normal ENT inspection, hearing grossly normal, pharynx normal Neck: supple, no JVD, trachea midline Respiratory/Chest: lungs clear, normal breath sounds, no respiratory distress Cardiovascular: no gallop, no murmur, + tachycardia (regular rhythm) Abdomen: normal bowel sounds, + distended (mildly distended), + tenderness ( diffuse tenderness with most marked tenderness in right lower quadrant) Extremities: non-tender, normal inspection, no pedal edema Neurologic/Psychiatric: alert, normal mood/affect, oriented x 3 Skin: normal color, warm/dry, no rash (Calli Castro ., JESSICA) Laboratory Results Last 24 Hours Test 12/23/16 04:05 12/23/16 06:00 White Blood Count 11.61 K/uL Red Blood Count 3.76 M/uL Hemoglobin 11.6 g/dL Hematocrit 35.3 % Mean Corpuscular Volume 93.9 fL Mean Corpuscular Hemoglobin 30.9 pg Mean Corpuscular Hemoglobin Concent 32.9 g/dl Platelet Count 256 K/uL Mean Platelet Volume 9.2 fL Neutrophils (%) (Auto) 86.3 % Lymphocytes (%) (Auto) 5.8 % Monocytes (%) (Auto) 6.8 % Eosinophils (%) (Auto) 0.7 % Basophils (%) (Auto) 0.1 % Neutrophils # (Auto) 10.03 K/uL Lymphocytes # (Auto) 0.67 K/uL Monocytes # (Auto) 0.79 K/uL Eosinophils # (Auto) 0.08 K/uL Basophils # (Auto) 0.01 K/uL RDW Standard Deviation 52.0 fL RDW Coefficient of Variation 15.3 % Immature Granulocyte % (Auto) 0.3 % Immature Granulocyte # (Auto) 0.03 K/uL Sodium Level 140 mmol/L Potassium Level 3.9 mmol/L Chloride Level 106 mmol/L Carbon Dioxide Level 25 mmol/L Anion Gap 9.0 mmol/L Blood Urea Nitrogen 9 mg/dl Creatinine 0.59 mg/dl Est Creatinine Clear Calc Drug Dose 65.0 ml/min Estimated GFR () 106.1 Estimated GFR (Non- 91.6 BUN/Creatinine Ratio 15.3 Random Glucose 84 mg/dl Calcium Level 8.8 mg/dl Magnesium Level 2.0 mg/dl Total Bilirubin 0.6 mg/dl Direct Bilirubin 0.2 mg/dl Aspartate Amino Transf (AST/SGOT) 8 U/L Alanine Aminotransferase (ALT/SGPT) 11 U/L Alkaline Phosphatase 107 U/L Total Protein 6.3 gm/dl Albumin 2.7 gm/dl (Calli Castro ., PA-C) Assessment and Plan 71 y/o female with a history of hyperlipidemia, glaucoma, and depression who presented to the ED on 12/22 with right lower quadrant pain 2 days. Patient met sepsis criteria upon admission with HR>90, WBC>12k, and suspected source of infection. CT of abdomen and pelvis showed edematous changes of the cecum, terminal ileum and proximal ascending colon as well as mild to moderate pericolonic infiltrative changes. Sepsis secondary to colitis -Admit to [facility] -Continue Cipro 400 mg IV q12h and Flagyl 500 mg IV q8h -C. difficile negative. WBC smear negative. Stool cultures pending. Ova and parasite pending -Continue pain control with morphine 2 mg IV q4h prn pain -Continue nausea control with Zofran 4 mg IV q6h prn nausea -Keep NPO -Continue IVF with 1/2NSS + 20 mEq KCl at 100 cc/hr -GI consulted, appreciate recs: Trial of Bentyl 10 mg PO QID and Simethicone 80 mg PO QID prn gas/bloating. Patient will need outpatient colonoscopy in 4-[address] Padilla. -General surgery consulted, appreciate recs: no need for immediate surgical intervention. Continue NPO status and IV antibiotics. Acute appendicitis unlikely. Hypokalemia--resolved -Potassium 3.2 on arrival -Given oral supplementation as well as IV fluids as above -Repeat potassium 3.9 on 12/23 HLD--stable -Continue atorvastatin 20 mg PO qd Glaucoma--stable -Continue Lumigan and Combigan drops Depression -Continue Lexapro 10 mg PO qd Tobacco use -Tobacco cessation counseling given DVT prophylaxis -Enoxaparin 40 mg SC q24h as no surgical intervention -LILI Ferrera Code Status -Level I, FULL RESUSCITATION STATUS This chart was completed in part utilizing [employer] Voice Recognition software. Attempts were made to minimize the grammatical errors, random word insertions, pronoun errors and incomplete sentences. Any formal questions or concerns about the content, text or information contained within the body of this dictation should be directly addressed to the provider for clarification. (Calli Castro ., MAEC) Attending Attestation: Pt seen/examined, chart reviewed, care plan d/w VINICIO Castro. I agree w/ the rey components of her documentation. Abd pain is less but [id number] still present. +bloating passing little flatus no vomiting no recent travel or sick contacts VSS no fever gen - NAD abd - distended, BS+ but diminished, no HSM, no peritoneal signs A/P: colitis with ileitis - infectious vs ischemic; doubt IBD but on differential agree with IVF, NPO status, IV abx, serial exams, labs in AM appreciate GI consultation appreciate gen surg consultation Israel GONZALEZ MD (Remington Gonzalez MD)
[2016-12-23 16:11] LABS: PROTHROMBIN TIME (PATIENT) 11.2 SECONDS (9.0-12.0)
[2016-12-23] MEDS: ATORVASTATIN 20 MG TAB PO SCH (21:00)
[2016-12-23] MEDS: BIMATOPROST 0.01% OP SOLN 2.5 ML BTL OPR SCH (21:00)
[2016-12-23] MEDS: ENOXAPARIN 40 MG/0.4 ML SYR SQ SCH (21:00)
[2016-12-23 22:56] VITALS: BP 119/70; PULSE 90; TEMP 37.4; O2SAT 92
[2016-12-24] MEDS: SODIUM CHLOR 0.45% + 20MEQ KCL 1,000 ML IV SCH ×2 (03:40→12:23)
[2016-12-24] MEDS: METRONIDAZOLE / NSS 500 MG in PREMIXED NSS 100 ML IV SCH ×2 (03:40→12:20)
--- NOTE | 2016-12-24 06:41 | Surgery Progress Note ---
Surgery Progress Note Date of Service Dec 24, 2016. Subjective + bowel movement (diarrhea), + flatus, + nausea (mild ), No vomiting Still has pain but feels some better today Objective Vital Signs: Date Time Temp Pulse Resp B/P Pulse Ox O2 Delivery O2 Flow Rate FiO2 12/23/16 23:55 Room Air 12/23/16 22:56 37.4 90 17 119/70 92 Room Air 12/23/16 16:30 Room Air 12/23/16 14:50 37.3 98 18 140/80 93 Room Air 12/23/16 08:00 Room Air 12/23/16 06:51 37.5 94 18 129/76 94 Room Air Abdomen: non distended, + abnormal bowel sounds (decreased), + tenderness ( slightly less today) Laboratory Results: Results Past 24 Hours Test 12/23/16 15:52 12/24/16 04:44 Range/Units Prothrombin Time 11.2 9.0-12.0 SECONDS Prothromb Time International Ratio 1.0 0.9-1.1 Assessment & Plan Probable colitis Appreciate GI input Continue conservative management
[2016-12-24 07:15] VITALS: BP 133/83; PULSE 88; TEMP 36.9; O2SAT 96
[2016-12-24 07:20] LABS: BASO % 0.1 %; BASO ABS # 0.01 K/uL (0-0.2); COMPLETE YES; HEMATOCRIT 37.2 % (37-47); IG% 0.2 %; LYMPH % 6.9 %; LYMPH ABS # 0.71 K/uL (1.2-3.4); MEAN CELL VOLUME 92.5 fL (80-100); MEAN CORPUSCULAR HEMOGLOBIN 30.6 pg (25-34); MEAN CORPUSCULAR HGB CONC 33.1 g/dl (32-36); MEAN PLATELET VOLUME 9.3 fL (7.4-10.4); MONO % 7.6 %; NEUT % 84.2 %; PLATELET COUNT 286 K/uL (130-400); RED BLOOD COUNT 4.02 M/uL (4.2-5.4)
[2016-12-24] MEDS: COMBIGAN~ORDER AWAITING ACTION SCH ×3 (07:47→12:23)
[2016-12-24] MEDS: CIPROFLOXACIN / D5W 400 MG in PREMIXED IN D5W 200 ML IV SCH ×2 (07:47→21:58)
[2016-12-24] MEDS: DICYCLOMINE HCL 20 MG TAB PO SCH ×4 (07:48→21:00)
[2016-12-24] MEDS: ESCITALOPRAM OXALATE 10 MG TAB PO SCH (07:48)
[2016-12-24 07:53] LABS: BUN/CREATININE RATIO 14.9 (10-20); CALCIUM 8.1 mg/dl (8.5-10.1); CREATININE 0.46 mg/dl (0.60-1.20); POTASSIUM 4.2 mmol/L (3.5-5.1)
--- NOTE | 2016-12-24 11:36 | Gastroenterology Progress Note ---
Progress Note Date of Service: Dec 24, 2016 Subjective Pt evaluation today including: conversation w/ patient, physical exam, chart review, lab review Pt was seen and examined this morning. Abdominal pain is moderately improved but still present. Infrequent, intermittent. Generalized but also localized and worse in RLQ. Pain is cramping and achy. Pain is worse with movement and touch. Passed one BM this morning, diarrhea. It was dark brown. No black or bloody stools. Has not passed any gas since this AM BM. Is feeling slightly more distended since this morning. Acid reflux over night. Reports burping, esophageal burning. No epigastric pain, difficulty swallowing, painful swallowing. Uses OTC tums occasionally for this sensation as an outpatient. Does not take anything daily as an outpatient for acid reflux as it typically does not happen often Denies previous endoscopy. Review of Systems Constitutional: No chills, No fever Respiratory: No cough, No shortness of breath Cardiac: No chest pain, No edema Abdomen: + diarrhea, + pain, No GI bleeding, No acolic stools, No constipation , No dark urine, No dysphagia, No nausea, No odynophagia, No vomiting Medications Current Inpatient Medications Medications (Trade) Dose Ordered Sig/Jose Route Start Time Stop Time Status Last Admin Dose Admin Ioversol (Optiray 320) 100 ml UD PRN IV 12/22/16 12:15 12/26/16 12:14 Ondansetron HCl (Zofran Inj) 4 mg Q6H PRN IV 12/22/16 18:15 01/21/17 18:14 Atorvastatin Calcium (Lipitor Tab) 20 mg HS PO 12/22/16 21:00 01/21/17 20:59 12/23/16 21:00 20 MG Escitalopram Oxalate (Lexapro Tab) 10 mg QAM PO 12/23/16 09:00 01/22/17 08:59 12/24/16 07:48 10 MG Bimatoprost (Lumigan 0.01%) 1 drops HS OPR 12/22/16 21:00 01/21/17 20:59 12/23/16 21:00 1 DROPS Miscellaneous Information 1 ea 1 ea QS N/A 12/22/16 21:00 01/21/17 20:59 Ciprofloxacin/ Dextrose 400 mg/ Prmx 200 ml @ 100 mls/hr Q12H IV 12/23/16 08:00 01/02/17 07:59 12/24/16 07:47 100 MLS/HR Metronidazole/Prmx (Flagyl / Nss/ Premixed Nss) 100 ml @ 100 mls/hr Q8H IV 12/23/16 04:00 01/02/17 03:59 12/24/16 03:40 100 MLS/HR Morphine Sulfate 2 mg 2 mg Q4 PRN IV 12/22/16 18:30 01/05/17 18:29 12/23/16 13:07 2 MG Potassium Chloride/Sodium Chloride (09/29 Nss + 20meq KCl 1000ml) 1,000 ml @ 100 mls/hr Q10H IV 12/22/16 21:00 01/21/17 20:59 12/24/16 03:40 100 MLS/HR Dicyclomine HCl (Bentyl Tab) 10 mg QID PO 12/23/16 13:00 01/22/17 12:59 12/23/16 21:00 10 MG Simethicone (Mylicon Chew Tab) 80 mg QID PRN PO 12/23/16 12:45 01/22/17 12:44 Enoxaparin Sodium (Lovenox Inj) 40 mg Q24H SQ 12/23/16 21:00 01/22/17 20:59 12/23/16 21:00 40 MG Objective Vital Signs Date Time Temp Pulse Resp B/P Pulse Ox O2 Delivery O2 Flow Rate FiO2 12/24/16 07:15 36.9 88 16 133/83 96 Room Air 12/23/16 23:55 Room Air 12/23/16 22:56 37.4 90 17 119/70 92 Room Air 12/23/16 16:30 Room Air 12/23/16 14:50 37.3 98 18 140/80 93 Room Air Physical Exam General Appearance: no apparent distress (she is upright in chair) Eyes: PERRL ENT: hearing grossly normal Neck: supple, trachea midline Respiratory/Chest: lungs clear, normal breath sounds, no respiratory distress, no accessory muscle use Cardiovascular: regular rate, rhythm, no edema, no gallop, no JVD, no murmur Abdomen: soft, no organomegaly, no pulsatile mass, + abnormal bowel sounds (+ BS x 4 but distant and diminished), + distended Neurologic/Psych: alert, normal mood/affect, oriented x 3 Skin: normal color, no jaundice, warm/dry, no rash Laboratory Results Last 24 Hours Test 12/23/16 15:52 12/24/16 06:30 Prothrombin Time 11.2 SECONDS Prothromb Time International Ratio 1.0 White Blood Count 10.30 K/uL Red Blood Count 4.02 M/uL Hemoglobin 12.3 g/dL Hematocrit 37.2 % Mean Corpuscular Volume 92.5 fL Mean Corpuscular Hemoglobin 30.6 pg Mean Corpuscular Hemoglobin Concent 33.1 g/dl Platelet Count 286 K/uL Mean Platelet Volume 9.3 fL Neutrophils (%) (Auto) 84.2 % Lymphocytes (%) (Auto) 6.9 % Monocytes (%) (Auto) 7.6 % Eosinophils (%) (Auto) 1.0 % Basophils (%) (Auto) 0.1 % Neutrophils # (Auto) 8.68 K/uL Lymphocytes # (Auto) 0.71 K/uL Monocytes # (Auto) 0.78 K/uL Eosinophils # (Auto) 0.10 K/uL Basophils # (Auto) 0.01 K/uL RDW Standard Deviation 50.3 fL RDW Coefficient of Variation 14.8 % Immature Granulocyte % (Auto) 0.2 % Immature Granulocyte # (Auto) 0.02 K/uL Sodium Level 141 mmol/L Potassium Level 4.2 mmol/L Chloride Level 107 mmol/L Carbon Dioxide Level 23 mmol/L Anion Gap 11.0 mmol/L Blood Urea Nitrogen 7 mg/dl Creatinine 0.46 mg/dl Est Creatinine Clear Calc Drug Dose 83.4 ml/min Estimated GFR () 115.2 Estimated GFR (Non- 99.4 BUN/Creatinine Ratio 14.9 Random Glucose 85 mg/dl Calcium Level 8.1 mg/dl Total Bilirubin 0.6 mg/dl Direct Bilirubin 0.1 mg/dl Aspartate Amino Transf (AST/SGOT) 10 U/L Alanine Aminotransferase (ALT/SGPT) 11 U/L Alkaline Phosphatase 100 U/L Total Protein 5.8 gm/dl Albumin 2.4 gm/dl Assessment and Plan Patient is a 71 year old female with abdominal pain, diarrhea and CT evidence suggestive of nonspecific inflammatory changes in the colon. Differentials include infectious colitis, nonspecific colitis, diverticulitis, nonspecific inflammatory bowel change, IBD. Her abdominal pain is moderately resolved. Passed one BM+ this morning, loose stools, no blood. KUB Omeprazole 20 mg in the morning Trial of bentyl 10 mg QID Trial of simethicone 1 tab QID PRN gas, bloating NPO for bowel rest Hydration with IVF Continue to treat empirically with Cipro/Flagyl Pain medications as needed Stool studies Outpatient colonoscopy in 4-6 weeks w/ Dr. Padilla Call with questions I have seen and examined the patient on 12/24 with Shruthi Reyes whos enote reflects our findings and plan.
[2016-12-24] MEDS ORDERED: NURSING VERBAL MED ORDER ONE (11:45)
[2016-12-24] MEDS ORDERED: RANITIDINE HCL 150 MG TAB PO ONE (11:45)
[2016-12-24] MEDS: PANTOprazole INJ 40 MG in SYRINGE 0 ML IV SCH (12:21)
--- NOTE | 2016-12-24 12:34 | Hospitalist Progress Note ---
Hospitalist Progress Note Date of Service Dec 24, 2016. (Calli Castro ., VINICIO-C) Subjective Pt evaluation today including: conversation w/ patient, physical exam, chart review, lab review, review of inpatient medication list Pain: 7/10 lower abdominal pain PO Intake: NPO Voiding: no voiding problems Patient reports feeling about the same as yesterday. She states that her pain is still a 7/10 aching pain in her lower abdomen. She states that it might have slightly improved since yesterday. She supplements nausea but denies any vomiting. She states that she had some very loose stools earlier this morning without any melena or hematochezia. The patient denies fevers, chills, sweats, chest pain, palpitations, claudication, cough, wheezing, shortness of breath, vomiting, dysuria, hematuria, urinary retention, paralysis, weakness, numbness and tingling. Additional Comments: See HPI for pertinent positives and negatives. All other systems reviewed and negative. (Calli Castro, VINICIO-C) Objective Vital Signs Date Time Temp Pulse Resp B/P Pulse Ox O2 Delivery O2 Flow Rate FiO2 12/24/16 07:15 36.9 88 16 133/83 96 Room Air 12/23/16 23:55 Room Air 12/23/16 22:56 37.4 90 17 119/70 92 Room Air 12/23/16 16:30 Room Air 12/23/16 14:50 37.3 98 18 140/80 93 Room Air (Calli Castro ., PA-C) Physical Exam General Appearance: WD/WN, no apparent distress Eyes: normal inspection, PERRL, EOMI ENT: normal ENT inspection, hearing grossly normal, pharynx normal Neck: supple, no JVD, trachea midline Respiratory/Chest: lungs clear, normal breath sounds, no respiratory distress Cardiovascular: regular rate, rhythm, no gallop, no murmur Abdomen: normal bowel sounds, + distended, + tenderness (epigastric area and RUQ mildly TTP, RLQ markedly tender) Extremities: non-tender, normal inspection, no pedal edema Neurologic/Psychiatric: alert, normal mood/affect, oriented x 3 Skin: normal color, warm/dry, no rash (Calli Castro ., PA-C) Laboratory Results Last 24 Hours Test 12/23/16 15:52 12/24/16 06:30 Prothrombin Time 11.2 SECONDS Prothromb Time International Ratio 1.0 White Blood Count 10.30 K/uL Red Blood Count 4.02 M/uL Hemoglobin 12.3 g/dL Hematocrit 37.2 % Mean Corpuscular Volume 92.5 fL Mean Corpuscular Hemoglobin 30.6 pg Mean Corpuscular Hemoglobin Concent 33.1 g/dl Platelet Count 286 K/uL Mean Platelet Volume 9.3 fL Neutrophils (%) (Auto) 84.2 % Lymphocytes (%) (Auto) 6.9 % Monocytes (%) (Auto) 7.6 % Eosinophils (%) (Auto) 1.0 % Basophils (%) (Auto) 0.1 % Neutrophils # (Auto) 8.68 K/uL Lymphocytes # (Auto) 0.71 K/uL Monocytes # (Auto) 0.78 K/uL Eosinophils # (Auto) 0.10 K/uL Basophils # (Auto) 0.01 K/uL RDW Standard Deviation 50.3 fL RDW Coefficient of Variation 14.8 % Immature Granulocyte % (Auto) 0.2 % Immature Granulocyte # (Auto) 0.02 K/uL Sodium Level 141 mmol/L Potassium Level 4.2 mmol/L Chloride Level 107 mmol/L Carbon Dioxide Level 23 mmol/L Anion Gap 11.0 mmol/L Blood Urea Nitrogen 7 mg/dl Creatinine 0.46 mg/dl Est Creatinine Clear Calc Drug Dose 83.4 ml/min Estimated GFR () 115.2 Estimated GFR (Non- 99.4 BUN/Creatinine Ratio 14.9 Random Glucose 85 mg/dl Calcium Level 8.1 mg/dl Total Bilirubin 0.6 mg/dl Direct Bilirubin 0.1 mg/dl Aspartate Amino Transf (AST/SGOT) 10 U/L Alanine Aminotransferase (ALT/SGPT) 11 U/L Alkaline Phosphatase 100 U/L Total Protein 5.8 gm/dl Albumin 2.4 gm/dl (Calli Castro PA-C) Assessment and Plan 71 y/o female with a history of hyperlipidemia, glaucoma, and depression who presented to the ED on 12/22 with right lower quadrant pain 2 days. Patient met sepsis criteria upon admission with HR>90, WBC>12k, and suspected source of infection. CT of abdomen and pelvis showed edematous changes of the cecum, terminal ileum and proximal ascending colon as well as mild to moderate pericolonic infiltrative changes. Sepsis secondary to colitis -Admit to [facility] -Continue Cipro 400 mg IV q12h and Flagyl 500 mg IV q8h -C. difficile negative. WBC smear negative. Stool cultures negative. Ova and parasite pending -Continue pain control with morphine 2 mg IV q4h prn pain -Continue nausea control with Zofran 4 mg IV q6h prn nausea -Keep NPO -Continue IVF with 1/2NSS + 20 mEq KCl at 100 cc/hr -GI consulted, appreciate recs: KUB ordered. Trial of Bentyl 10 mg PO QID and Simethicone 80 mg PO QID prn gas/bloating. Patient will need outpatient colonoscopy in 4-[address] Padilla. -General surgery consulted, appreciate recs: no need for immediate surgical intervention. Continue NPO status and IV antibiotics. Acute appendicitis unlikely. Probable colitis. -Protonix 40 mg IV qd ordered, pt complaining of indigestion Hypokalemia--resolved -Potassium 3.2 on arrival -Given oral supplementation as well as IV fluids as above -Repeat potassium 4.2 on 12/24 HLD--stable -Continue atorvastatin 20 mg PO qd Glaucoma--stable -Continue Lumigan and Combigan drops Depression -Continue Lexapro 10 mg PO qd Tobacco use -Tobacco cessation counseling given DVT prophylaxis -Enoxaparin 40 mg SC q24h -LILI Ferrera Code Status -Level I, FULL RESUSCITATION STATUS This chart was completed in part utilizing [employer] Speech Voice Recognition software. Attempts were made to minimize the grammatical errors, random word insertions, pronoun errors and incomplete sentences. Any formal questions or concerns about the content, text or information contained within the body of this dictation should be directly addressed to the provider for clarification. (Calli Castro ., PAMercedes) Attending Attestation: Pt seen/examined, chart reviewed, care plan d/w VINICIO Castro. I agree w/ the rey components of her documentation. Walking the hallways feels better had BM w/ flatus earlier today some GERD symptoms less bloating not anxious to eat or drink VSS no fever gen - NAD abd - distended but less than yesterday, BS+ and improved today, no HSM, no peritoneal signs A/P: colitis with ileitis - infectious vs ischemic - clinically improving KUB x-ray with mild ileus findings only cont IVF, NPO status (allow ice chips tonight if desired by patient), IV abx appreciate GI consultation appreciate gen surg consultation hopefully will begin to show more robust improvement next 24 hours agree with PPI Israel GONZALEZ MD (Remington Gonzalez MD)
--- NOTE | 2016-12-24 13:08 | DIAGNOSTIC IMAGING REPORT ---
KUB CLINICAL HISTORY: Bloating. Abdominal distention. FINDINGS: 2 AP supine abdominal radiographs are correlated with abdominal CT dated 12/22/2016. There are mildly distended and gas-filled loops of small bowel which measure up to 3.5 cm diameter. The cecum and right colon are gas-filled. The left colon is relatively decompressed and contains residual enteric contrast. This outlines diverticular disease. No evidence of intraperitoneal free air is seen. No abnormal abdominal calcifications are identified. The skeletal structures are osteopenic. There is lumbosacral spondylosis with extensive lumbosacral spinal fusion hardware. IMPRESSION: There are mildly distended and gas-filled loops of small bowel. This may represent ileus secondary to the inflammatory process in the right colon seen by CT on 12/22/2016 or possibly a low-grade bowel obstruction. There is no radiographic evidence of high-grade bowel obstruction. Electronically signed by: Osvaldo Membreno M.D. 12/24/2016 1:07 PM Dictated Date/Time: 12/24/2016 1:04 PM
[2016-12-24 15:26] VITALS: BP 145/85; PULSE 89; TEMP 36.8; O2SAT 97
[2016-12-24] MEDS: BIMATOPROST 0.01% OP SOLN 2.5 ML BTL OPR SCH (22:02)
[2016-12-24] MEDS: ATORVASTATIN 20 MG TAB PO SCH (22:03)
[2016-12-24] MEDS: ENOXAPARIN 40 MG/0.4 ML SYR SQ SCH (22:04)
[2016-12-24 23:00] VITALS: BP 118/66; PULSE 71; TEMP 36.9; O2SAT 94
[2016-12-25] MEDS: RANITIDINE HCL 150 MG TAB PO SCH ×2 (00:51→20:54)
[2016-12-25] MEDS: METRONIDAZOLE / NSS 500 MG in PREMIXED NSS 100 ML IV SCH ×4 (00:51→20:38)
[2016-12-25] MEDS: SODIUM CHLOR 0.45% + 20MEQ KCL 1,000 ML IV SCH ×3 (00:51→18:33)
[2016-12-25 05:55] LABS: BASO % 0.3 %; BASO ABS # 0.02 K/uL (0-0.2); COMPLETE YES; EOS % 2.8 %; IG% 0.3 %; LYMPH % 12.1 %; LYMPH ABS # 0.83 K/uL (1.2-3.4); MEAN CELL VOLUME 92.3 fL (80-100); MEAN CORPUSCULAR HEMOGLOBIN 30.1 pg (25-34); MEAN CORPUSCULAR HGB CONC 32.6 g/dl (32-36); MEAN PLATELET VOLUME 9.2 fL (7.4-10.4); MONO % 9.5 %; PLATELET COUNT 312 K/uL (130-400); RED BLOOD COUNT 3.79 M/uL (4.2-5.4); WHITE BLOOD COUNT 6.87 K/uL (4.8-10.8)
[2016-12-25 06:23] LABS: BUN/CREATININE RATIO 14.9 (10-20); CREATININE 0.47 mg/dl (0.60-1.20); POTASSIUM 4.1 mmol/L (3.5-5.1)
[2016-12-25 07:29] VITALS: BP 133/72; PULSE 85; TEMP 36.7; O2SAT 95
[2016-12-25] MEDS: COMBIGAN~ORDER AWAITING ACTION SCH ×3 (08:52→16:49)
[2016-12-25] MEDS: DICYCLOMINE HCL 20 MG TAB PO SCH ×4 (08:53→20:52)
[2016-12-25] MEDS: CIPROFLOXACIN / D5W 400 MG in PREMIXED IN D5W 200 ML IV SCH ×2 (08:53→20:39)
[2016-12-25] MEDS: PANTOprazole INJ 40 MG in SYRINGE 0 ML IV SCH (08:53)
[2016-12-25] MEDS: ESCITALOPRAM OXALATE 10 MG TAB PO SCH (08:53)
[2016-12-25] MEDS: MoRPHine SULFATE 2 MG/ML CARP IV PRN (08:59)
[2016-12-25] MEDS ORDERED: PANTOprazole SOD 40 MG TAB PO SCH (09:00)
--- NOTE | 2016-12-25 09:39 | Surgery Progress Note ---
Surgery Progress Note Date of Service Dec 25, 2016. Subjective Post OP Day: HD # 3 "Feeling better than yesterday" Pain not as severe or as constant. Comes and goes. Pain located in right lower quadrant. no nausea or vomiting had a liquid bowel movement not passing much flatus Objective Vital Signs: Date Time Temp Pulse Resp B/P Pulse Ox O2 Delivery O2 Flow Rate FiO2 12/25/16 07:29 36.7 85 16 133/72 95 Room Air 12/24/16 23:00 36.9 71 17 118/66 94 Room Air 12/24/16 21:00 Room Air 12/24/16 15:26 36.8 89 18 145/85 97 Room Air General Appearance: WD/WN, no apparent distress Head: normocephalic, atraumatic Neck: trachea midline Respiratory/Chest: lungs clear, normal breath sounds, no respiratory distress, no accessory muscle use Cardiovascular: regular rate, rhythm, no murmur Abdomen: non distended, soft, no organomegaly, + tenderness (RLQ) Laboratory Results: Results Past 24 Hours Test 12/25/16 05:30 Range/Units White Blood Count 6.87 4.8-10.8 K/uL Red Blood Count 3.79 4.2-5.4 M/uL Hemoglobin 11.4 12.0-16.0 g/dL Hematocrit 35.0 37-47 % Mean Corpuscular Volume 92.3 80-100 fL Mean Corpuscular Hemoglobin 30.1 25-34 pg Mean Corpuscular Hemoglobin Concent 32.6 32-36 g/dl Platelet Count 312 130-400 K/uL Mean Platelet Volume 9.2 7.4-10.4 fL Neutrophils (%) (Auto) 75.0 % Lymphocytes (%) (Auto) 12.1 % Monocytes (%) (Auto) 9.5 % Eosinophils (%) (Auto) 2.8 % Basophils (%) (Auto) 0.3 % Neutrophils # (Auto) 5.16 1.4-6.5 K/uL Lymphocytes # (Auto) 0.83 1.2-3.4 K/uL Monocytes # (Auto) 0.65 0.11-0.59 K/uL Eosinophils # (Auto) 0.19 0-0.5 K/uL Basophils # (Auto) 0.02 0-0.2 K/uL RDW Standard Deviation 50.1 36.4-46.3 fL RDW Coefficient of Variation 14.8 11.5-14.5 % Immature Granulocyte % (Auto) 0.3 % Immature Granulocyte # (Auto) 0.02 0.00-0.02 K/uL Sodium Level 140 136-145 mmol/L Potassium Level 4.1 3.5-5.1 mmol/L Chloride Level 108 98-107 mmol/L Carbon Dioxide Level 22 21-32 mmol/L Anion Gap 10.0 3-11 mmol/L Blood Urea Nitrogen 7 7-18 mg/dl Creatinine 0.47 0.60-1.20 mg/dl Est Creatinine Clear Calc Drug Dose 81.6 ml/min Estimated GFR () 114.4 Estimated GFR (Non- 98.7 BUN/Creatinine Ratio 14.9 10-20 Random Glucose 81 70-99 mg/dl Calcium Level 8.0 8.5-10.1 mg/dl Diagnostic Interpretation: KUB CLINICAL HISTORY: Bloating. Abdominal distention. FINDINGS: 2 AP supine abdominal radiographs are correlated with abdominal CT dated 12/22/2016. There are mildly distended and gas-filled loops of small bowel which measure up to 3.5 cm diameter. The cecum and right colon are gas-filled. The left colon is relatively decompressed and contains residual enteric contrast. This outlines diverticular disease. No evidence of intraperitoneal free air is seen. No abnormal abdominal calcifications are identified. The skeletal structures are osteopenic. There is lumbosacral spondylosis with extensive lumbosacral spinal fusion hardware. IMPRESSION: There are mildly distended and gas-filled loops of small bowel. This may represent ileus secondary to the inflammatory process in the right colon seen by CT on 12/22/2016 or possibly a low-grade bowel obstruction. There is no radiographic evidence of high-grade bowel obstruction. Assessment & Plan Colitis of the Cecum and Ascending Colon - vital signs stable - no leukocytosis - abdominal pain improving - +bowel function - KUB yesterday showing slight dilation of the small bowel, may represent ileus secondary to the inflammatory process in the right colon or possibly a low -grade bowel obstruction - Stool studies including c. diff, Campylobacter, Shigella, Salmonella and WBC within normal limits Plan: Continue conservative management at this time: IV fluids, Bowel rest, IV antibiotics, and IV pain medication PRN will defer advancement of diet to GI and Medicine No surgical indication at this time Will need outpatient colonoscopy in 4-6 weeks RE-evaluated patient at [address] Coulter Patient tolerated clear liquids Continue current management, no surgical intervention required. will follow Dr. Coulter has seen patient and agrees with above stated findings and treatment plan.
--- NOTE | 2016-12-25 10:48 | Gastroenterology Progress Note ---
Progress Note Date of Service: Dec 25, 2016 Subjective Pt evaluation today including: conversation w/ patient, physical exam, chart review, lab review Pt was seen and examined this morning. Is feeling slightly better. One BM this morning - all liquid. No black/bloody stools. Still with distention and generalized tenderness. Has been ambulating the halls. KUB 12/24/16: There are mildly distended and gas-filled loops of small bowel. This may represent ileus secondary to the inflammatory process in the right colon seen by CT on 12/22/2016 or possibly a low-grade bowel obstruction. There is no radiographic evidence of high-grade bowel obstruction. Review of Systems Constitutional: No chills, No fever Respiratory: No cough, No shortness of breath Cardiac: No chest pain, No edema Abdomen: + diarrhea, + pain, No GI bleeding, No constipation, No nausea, No vomiting Medications Current Inpatient Medications Medications (Trade) Dose Ordered Sig/Jose Route Start Time Stop Time Status Last Admin Dose Admin Ioversol (Optiray 320) 100 ml UD PRN IV 12/22/16 12:15 12/26/16 12:14 Ondansetron HCl (Zofran Inj) 4 mg Q6H PRN IV 12/22/16 18:15 01/21/17 18:14 Atorvastatin Calcium (Lipitor Tab) 20 mg HS PO 12/22/16 21:00 01/21/17 20:59 12/24/16 22:03 20 MG Escitalopram Oxalate (Lexapro Tab) 10 mg QAM PO 12/23/16 09:00 01/22/17 08:59 12/25/16 08:53 10 MG Bimatoprost (Lumigan 0.01%) 1 drops HS OPR 12/22/16 21:00 01/21/17 20:59 12/24/16 22:02 1 DROPS Miscellaneous Information 1 ea 1 ea QS N/A 12/22/16 21:00 01/21/17 20:59 Ciprofloxacin/ Dextrose 400 mg/ Prmx 200 ml @ 100 mls/hr Q12H IV 12/23/16 08:00 01/02/17 07:59 12/25/16 08:53 100 MLS/HR Metronidazole/Prmx (Flagyl / Nss/ Premixed Nss) 100 ml @ 100 mls/hr Q8H IV 12/23/16 04:00 01/02/17 03:59 12/25/16 05:46 100 MLS/HR Morphine Sulfate 2 mg 2 mg Q4 PRN IV 12/22/16 18:30 01/05/17 18:29 12/25/16 08:59 2 MG Potassium Chloride/Sodium Chloride (1/2 Nss + 20meq KCl 1000ml) 1,000 ml @ 100 mls/hr Q10H IV 12/22/16 21:00 01/21/17 20:59 12/25/16 08:52 100 MLS/HR Dicyclomine HCl (Bentyl Tab) 10 mg QID PO 12/23/16 13:00 01/22/17 12:59 12/23/16 21:00 10 MG Simethicone (Mylicon Chew Tab) 80 mg QID PRN PO 12/23/16 12:45 01/22/17 12:44 Enoxaparin Sodium (Lovenox Inj) 40 mg Q24H SQ 12/23/16 21:00 01/22/17 20:59 12/24/16 22:04 40 MG Ranitidine HCl 150 mg 150 mg HS PO 12/24/16 21:00 01/23/17 20:59 12/25/16 00:51 150 MG Pantoprazole Sodium/Syringe (Protonix Inj/ Syringe) 10 ml @ 5 mls/min DAILY@11 IV 12/24/16 12:00 01/23/17 11:59 12/25/16 08:53 5 MLS/MIN Objective Vital Signs Date Time Temp Pulse Resp B/P Pulse Ox O2 Delivery O2 Flow Rate FiO2 12/25/16 07:29 36.7 85 16 133/72 95 Room Air 12/24/16 23:00 36.9 71 17 118/66 94 Room Air 12/24/16 21:00 Room Air 12/24/16 15:26 36.8 89 18 145/85 97 Room Air Physical Exam General Appearance: no apparent distress Eyes: PERRL ENT: hearing grossly normal Neck: supple, trachea midline Respiratory/Chest: lungs clear, normal breath sounds, no respiratory distress, no accessory muscle use Cardiovascular: regular rate, rhythm, no edema, no gallop, no JVD Abdomen: normal bowel sounds, non tender, soft, no organomegaly, no pulsatile mass Neurologic/Psych: alert, normal mood/affect, oriented x 3 Skin: normal color, no jaundice, warm/dry Laboratory Results Last 24 Hours Test 12/25/16 05:30 White Blood Count 6.87 K/uL Red Blood Count 3.79 M/uL Hemoglobin 11.4 g/dL Hematocrit 35.0 % Mean Corpuscular Volume 92.3 fL Mean Corpuscular Hemoglobin 30.1 pg Mean Corpuscular Hemoglobin Concent 32.6 g/dl Platelet Count 312 K/uL Mean Platelet Volume 9.2 fL Neutrophils (%) (Auto) 75.0 % Lymphocytes (%) (Auto) 12.1 % Monocytes (%) (Auto) 9.5 % Eosinophils (%) (Auto) 2.8 % Basophils (%) (Auto) 0.3 % Neutrophils # (Auto) 5.16 K/uL Lymphocytes # (Auto) 0.83 K/uL Monocytes # (Auto) 0.65 K/uL Eosinophils # (Auto) 0.19 K/uL Basophils # (Auto) 0.02 K/uL RDW Standard Deviation 50.1 fL RDW Coefficient of Variation 14.8 % Immature Granulocyte % (Auto) 0.3 % Immature Granulocyte # (Auto) 0.02 K/uL Sodium Level 140 mmol/L Potassium Level 4.1 mmol/L Chloride Level 108 mmol/L Carbon Dioxide Level 22 mmol/L Anion Gap 10.0 mmol/L Blood Urea Nitrogen 7 mg/dl Creatinine 0.47 mg/dl Est Creatinine Clear Calc Drug Dose 81.6 ml/min Estimated GFR () 114.4 Estimated GFR (Non- 98.7 BUN/Creatinine Ratio 14.9 Random Glucose 81 mg/dl Calcium Level 8.0 mg/dl Assessment and Plan Patient is a 71 year old female with abdominal pain, diarrhea and CT evidence suggestive of nonspecific inflammatory changes in the colon. Differentials include infectious colitis, nonspecific colitis, diverticulitis, nonspecific inflammatory bowel change, IBD. Her abdominal pain is moderately resolved. Passed one BM+ this morning, loose stools, no blood. Omeprazole 20 mg in the morning Trial of bentyl 10 mg QID Trial of simethicone 1 tab QID PRN gas, bloating Clear liquids as tolerated Hydration with IVF Continue to treat empirically with Cipro/Flagyl Pain medications as needed Outpatient colonoscopy in 4-6 weeks w/ Dr. Randy Call with questions I have seen and examined the patient with Shruthi Reyes on 12/25 whose note reflects our findings and plan.
--- NOTE | 2016-12-25 13:11 | Hospitalist Progress Note ---
Hospitalist Progress Note Date of Service Dec 25, 2016. (Calli Castro ., MAEC) Subjective Pt evaluation today including: conversation w/ patient, physical exam, chart review, lab review, review of studies, review of inpatient medication list Pain: intermittent 7/10 pain in lower abdomen PO Intake: NPO Voiding: no voiding problems Patient states that she is feeling better overall. She was up ambulating in the hallway yesterday. She states that her pain is the same intensity when it occurs but is now intermittent, whereas yesterday it had been a constant pain. She rates her pain as 6 or 7 out of 10 sharp pain located in her lower abdomen that is worse with movement. The patient states that her nausea has been improving, however, she seems to become nauseous after receiving the IV morphine. She denies any vomiting. The patient did have a loose bowel movement this morning without hematochezia or melena. She reports passing very little gas. The patient denies fevers, chills, sweats, chest pain, palpitations , claudication, cough, wheezing, shortness of breath, vomiting, dysuria, hematuria, urinary retention, paralysis, weakness, numbness and tingling. Additional Comments: See HPI for pertinent positives and negatives. All other systems reviewed and negative. (Calli Castro ., VINICIO-C) Objective Vital Signs Date Time Temp Pulse Resp B/P Pulse Ox O2 Delivery O2 Flow Rate FiO2 12/25/16 07:29 36.7 85 16 133/72 95 Room Air 12/24/16 23:00 36.9 71 17 118/66 94 Room Air 12/24/16 21:00 Room Air 12/24/16 15:26 36.8 89 18 145/85 97 Room Air (Calli Castro ., VINICIO-C) Physical Exam General Appearance: WD/WN, no apparent distress Eyes: normal inspection, PERRL, EOMI ENT: normal ENT inspection, hearing grossly normal, pharynx normal Neck: supple, no JVD, trachea midline Respiratory/Chest: lungs clear, normal breath sounds, no respiratory distress Cardiovascular: regular rate, rhythm, no gallop, no murmur Abdomen: normal bowel sounds, + distended, + tenderness (RLQ markedly TTP, LLQ TTP but milder) Extremities: non-tender, normal inspection, no pedal edema Neurologic/Psychiatric: alert, normal mood/affect, oriented x 3 Skin: normal color, warm/dry, + rash (Calli Castro .JESSICA) Laboratory Results Last 24 Hours Test 12/25/16 05:30 White Blood Count 6.87 K/uL Red Blood Count 3.79 M/uL Hemoglobin 11.4 g/dL Hematocrit 35.0 % Mean Corpuscular Volume 92.3 fL Mean Corpuscular Hemoglobin 30.1 pg Mean Corpuscular Hemoglobin Concent 32.6 g/dl Platelet Count 312 K/uL Mean Platelet Volume 9.2 fL Neutrophils (%) (Auto) 75.0 % Lymphocytes (%) (Auto) 12.1 % Monocytes (%) (Auto) 9.5 % Eosinophils (%) (Auto) 2.8 % Basophils (%) (Auto) 0.3 % Neutrophils # (Auto) 5.16 K/uL Lymphocytes # (Auto) 0.83 K/uL Monocytes # (Auto) 0.65 K/uL Eosinophils # (Auto) 0.19 K/uL Basophils # (Auto) 0.02 K/uL RDW Standard Deviation 50.1 fL RDW Coefficient of Variation 14.8 % Immature Granulocyte % (Auto) 0.3 % Immature Granulocyte # (Auto) 0.02 K/uL Sodium Level 140 mmol/L Potassium Level 4.1 mmol/L Chloride Level 108 mmol/L Carbon Dioxide Level 22 mmol/L Anion Gap 10.0 mmol/L Blood Urea Nitrogen 7 mg/dl Creatinine 0.47 mg/dl Est Creatinine Clear Calc Drug Dose 81.6 ml/min Estimated GFR () 114.4 Estimated GFR (Non- 98.7 BUN/Creatinine Ratio 14.9 Random Glucose 81 mg/dl Calcium Level 8.0 mg/dl (Calli Castro PA-C) Diagnostic Results Reviewed the following studies and agree with interpretation as follows: Patient Name: SHAGUFTA ELIZABETH Unit Number: [id number] Dictated: 12/24/161303 Transcribed: 12/24/161303 EV Printed Date/Time: [~ rep prt dt]/[~ rep prt tm] [~ rep ct labl] - [~ rep ct ivnm] [facility] [place] [address] Dictated: 12/24/161303 Transcribed: 12/24/164 EV Printed Date/Time: [~ rep prt dt]/[~ rep prt tm] [~ rep ct labl] - [~ rep ct ivnm] Patient: SHAGUFTA ELIZABETH Address1: [address] [facility] Rec: [id number] Address2: Acct ID: [id number] [facility] Zip: [place] [id number] Date: 1945 Sex: F Room/Bed: [facility] Ref Phy: Traci Yanes M.D. SC: JOSELYN Att Phy: Remington Gonzalez MD Report #: [id number] Vee Phy: Traci Yanes M.D. Test: KUB Admit Phy: Pham Haynes MD Boring Machine Set Up Operator Jig: KIM Interpreting Phy: Osvaldo Membreno M.D. Diagnosis: COLITIS Ordering Phy: Shruthi Reyes Service Date: 12/24/16 Admit Date: 12/22/1702/27/17 MNE: [id number] CONF: DICTATED BY: Osvaldo Membreno M.D.]] CC: Traci Yanes M.D. Sebastianelli, Alyssa ., Remington Vega MD Endcc: [~ rep ct add3]] KUB CLINICAL HISTORY: Bloating. Abdominal distention. FINDINGS: 2 AP supine abdominal radiographs are correlated with abdominal CT dated 12/22/2016. There are mildly distended and gas-filled loops of small bowel which measure up to 3.5 cm diameter. The cecum and right colon are gas-filled. The left colon is relatively decompressed and contains residual enteric contrast. This outlines diverticular disease. No evidence of intraperitoneal free air is seen. No abnormal abdominal calcifications are identified. The skeletal structures are osteopenic. There is lumbosacral spondylosis with extensive lumbosacral spinal fusion hardware. IMPRESSION: There are mildly distended and gas-filled loops of small bowel. This may represent ileus secondary to the inflammatory process in the right colon seen by CT on 12/22/2016 or possibly a low-grade bowel obstruction. There is no radiographic evidence of high-grade bowel obstruction. Electronically signed by: Osvaldo Membreno M.D. 12/24/2016 1:07 PM Dictated Date/Time: 12/24/2016 1:04 PM The status of this report is Signed. Draft = Not yet reviewed or approved by Radiologist. Signed = Reviewed and approved by Radiologist. <AttendingPhy>Remington Gonzalez MD</AttendingPhy> <FamilyPhy>Traci Yanes M.D.</FamilyPhy> <PrimaryPhy>Traci Yanes M.D.</PrimaryPhy> <UnitNumber >[id number]</UnitNumber> <VisitNumber>[id number]</VisitNumber> <PatientName> SHAGUFTA ELIZABETH</PatientName> <DateOfBirth>1945</DateOfBirth> <Location> [employer] [employer]</Location> <ServiceDate>12/22/16</ServiceDate> <MNE>ESINDI</MNE> < OrderingPhy>Shruthi Reyes</OrderingPhy> <OrderingPhyMNE>f rep ord dr knight</OrderingPhyMNE> <DictatingPhyMNE>f rep dict dr knight</DictatingPhyMNE> < CCListMNE>f rep ct mne</CCListMNE> <AdmittingPhyMNE>f pt admit dr knight</ AdmittingPhyMNE> <AttendingPhyMNE>f pt attend dr knight</AttendingPhyMNE> <ConsultingPhyMNE>f pt consult dr knight</ConsultingPhyMNE> <FamilyPhyMNE>f pt fam dr knight</FamilyPhyMNE> <OtherPhyMNE>f pt other dr knight</OtherPhyMNE> < PrimaryPhyMNE>f pt prim care dr knight</PrimaryPhyMNE> <ReferringPhyMNE>f pt referring dr knight</ReferringPhyMNE> (Calli Castro ., JESSICA) Assessment and Plan 71 y/o female with a history of hyperlipidemia, glaucoma, and depression who presented to the ED on 12/22 with right lower quadrant pain 2 days. Patient met sepsis criteria upon admission with HR>90, WBC>12k, and suspected source of infection. CT of abdomen and pelvis showed edematous changes of the cecum, terminal ileum and proximal ascending colon as well as mild to moderate pericolonic infiltrative changes. Sepsis secondary to colitis -Admit to MedSurg -Continue Cipro 400 mg IV q12h and Flagyl 500 mg IV q8h -C. difficile negative. WBC smear negative. Stool cultures negative. Ova and parasite pending -Continue pain control with morphine 2 mg IV q4h prn pain -Continue nausea control with Zofran 4 mg IV q6h prn nausea -KUB shows mildly distended and gas-filled loops of small bowel, likely ileus secondary to colitis. -Advanced to clear liquid diet -Continue IVF with 1/2NSS + 20 mEq KCl at 100 cc/hr -GI consulted, appreciate recs: Clear liquid diet as tolerated. Trial of Bentyl 10 mg PO QID and Simethicone 80 mg PO QID prn gas/bloating. Patient will need outpatient colonoscopy in 4-[address] Padilla. -General surgery consulted, appreciate recs: Advancement of diet per GI medicine. No need for immediate surgical intervention. Continue NPO status and IV antibiotics. Acute appendicitis unlikely. Probable colitis. -Protonix 40 mg IV qd ordered, pt complaining of indigestion Hypokalemia--resolved -Potassium 3.2 on arrival -Given oral supplementation as well as IV fluids as above -Potassium 4.1 on 12/25 HLD--stable -Continue atorvastatin 20 mg PO qd Glaucoma--stable -Continue Lumigan and Combigan drops Depression -Continue Lexapro 10 mg PO qd Tobacco use -Tobacco cessation counseling given DVT prophylaxis -Enoxaparin 40 mg SC q24h -LILI Ferrera Code Status -Level I, FULL RESUSCITATION STATUS This chart was completed in part utilizing [employer] Speech Voice Recognition software. Attempts were made to minimize the grammatical errors, random word insertions, pronoun errors and incomplete sentences. Any formal questions or concerns about the content, text or information contained within the body of this dictation should be directly addressed to the provider for clarification. (Calli Castro ., JESSICA) Attending Attestation: Pt seen/examined, chart reviewed, care plan d/w PA Calli Castro. I agree w/ the rey components of her documentation. Passing very little flatus but had brown, liquid stool this am no nausea no emesis I saw her later in the day after she started on clears and she tolerated such no other new complaints VSS no fever gen - NAD abd - distended, but again less than yesterday, BS+, no HSM, no peritoneal signs ; nontender CBC, BMP nl A/P: colitis with ileitis - infectious vs ischemic - clinically improving ok to start clears care plan d/w Dr. Coulter from surgery as well cont IVF repeat BMP, mag in AM appreciate GI consultation and gen surg consultation if she worsens or fails to improve would need repeat abdominal CT Israel GONZALEZ MD (Remington Gonzalez MD)
[2016-12-25 15:08] VITALS: BP 133/77; PULSE 81; TEMP 36.8; O2SAT 95
[2016-12-25 16:45] VITALS: O2SAT 95
[2016-12-25] MEDS: SIMETHICONE 80 MG CHEW PO PRN (16:55)
[2016-12-25] MEDS: BIMATOPROST 0.01% OP SOLN 2.5 ML BTL OPR SCH (20:53)
[2016-12-25] MEDS: ATORVASTATIN 20 MG TAB PO SCH (20:54)
[2016-12-25] MEDS: ENOXAPARIN 40 MG/0.4 ML SYR SQ SCH (20:55)
[2016-12-25] MEDS: ONDANSETRON INJ 2 MG/ML 2 ML VIAL IV PRN (22:32)
[2016-12-25 22:53] VITALS: BP 161/82; PULSE 77; TEMP 37; O2SAT 96
[2016-12-26] MEDS: METRONIDAZOLE / NSS 500 MG in PREMIXED NSS 100 ML IV SCH ×3 (03:54→21:30)
[2016-12-26] MEDS: SODIUM CHLOR 0.45% + 20MEQ KCL 1,000 ML IV SCH ×3 (03:55→20:24)
[2016-12-26 05:17] VITALS: BP 149/89
[2016-12-26 07:15] VITALS: BP 149/95; PULSE 76; TEMP 36.8; O2SAT 97
[2016-12-26 07:27] LABS: BUN/CREATININE RATIO 8.6 (10-20); CALCIUM 7.8 mg/dl (8.5-10.1); CREATININE 0.49 mg/dl (0.60-1.20); POTASSIUM 3.9 mmol/L (3.5-5.1)
[2016-12-26] MEDS: CIPROFLOXACIN / D5W 400 MG in PREMIXED IN D5W 200 ML IV SCH ×2 (08:35→20:26)
[2016-12-26] MEDS: DICYCLOMINE HCL 20 MG TAB PO SCH ×4 (08:36→20:33)
[2016-12-26] MEDS: COMBIGAN~ORDER AWAITING ACTION SCH ×4 (08:37→20:34)
[2016-12-26] MEDS: ESCITALOPRAM OXALATE 10 MG TAB PO SCH (08:37)
--- NOTE | 2016-12-26 08:52 | Surgery Progress Note ---
Surgery Progress Note Date of Service Dec 26, 2016. Subjective Post OP Day: HD # 4 + bowel movement, + feeling well, + flatus, + nausea, + pain controlled, + vomiting, No complaints had episode of nausea last evening with small emesis, had antiemetic and nausea resolved Feeling much better, pain still present but much improved Objective Vital Signs: Date Time Temp Pulse Resp B/P Pulse Ox O2 Delivery O2 Flow Rate FiO2 12/26/16 07:15 36.8 76 16 149/95 97 Room Air 12/26/16 05:17 149/89 12/25/16 23:30 Room Air 12/25/16 22:53 37.0 77 18 161/82 96 Room Air 12/25/16 16:45 95 Room Air 12/25/16 15:08 36.8 81 16 133/77 95 Room Air General Appearance: WD/WN, no apparent distress Head: normocephalic, atraumatic Respiratory/Chest: lungs clear, normal breath sounds, no respiratory distress, no accessory muscle use Cardiovascular: regular rate, rhythm, no murmur Abdomen: non distended, soft, + tenderness (RLQ and slight involuntary guarding , no rigidity or peritonitis) Laboratory Results: Results Past 24 Hours Test 12/26/16 06:23 Range/Units Sodium Level 143 136-145 mmol/L Potassium Level 3.9 3.5-5.1 mmol/L Chloride Level 110 98-107 mmol/L Carbon Dioxide Level 25 21-32 mmol/L Anion Gap 8.0 3-11 mmol/L Blood Urea Nitrogen 4 7-18 mg/dl Creatinine 0.49 0.60-1.20 mg/dl Est Creatinine Clear Calc Drug Dose 78.3 ml/min Estimated GFR () 112.8 Estimated GFR (Non- 97.3 BUN/Creatinine Ratio 8.6 10-20 Random Glucose 91 70-99 mg/dl Calcium Level 7.8 8.5-10.1 mg/dl Magnesium Level 2.0 1.8-2.4 mg/dl Assessment & Plan Colitis of the Cecum and Ascending Colon - vital signs stable - abdominal pain continues to improve - +bowel function - slight nausea and small emesis last evening, now resolved - Stool studies including c. diff, Campylobacter, Shigella, Salmonella and WBC within normal limits Plan: Continue conservative management, no surgical indication required. will defer advancement of diet to GI and Medicine Will need outpatient colonoscopy in 4-[address] Coulter has seen patient and agrees with above stated findings and treatment plan. Colitis of the Cecum and Ascending Colon - vital signs stable - no leukocytosis - abdominal pain improving - +bowel function - KUB yesterday showing slight dilation of the small bowel, may represent ileus secondary to the inflammatory process in the right colon or possibly a low -grade bowel obstruction - Stool studies including c. diff, Campylobacter, Shigella, Salmonella and WBC within normal limits Plan: Continue conservative management at this time: IV fluids, Bowel rest, IV antibiotics, and IV pain medication PRN will defer advancement of diet to GI and Medicine No surgical indication at this time Will need outpatient colonoscopy in 4-6 weeks RE-evaluated patient at [address] Coulter Patient tolerated clear liquids Continue current management, no surgical intervention required. will follow Dr. Coulter has seen patient and agrees with above stated findings and treatment plan.
--- NOTE | 2016-12-26 10:55 | Hospitalist Progress Note ---
Hospitalist Progress Note Date of Service Dec 26, 2016. (Calli Castro ., JESSICA) Subjective Pt evaluation today including: conversation w/ patient, physical exam, chart review, lab review, conversation w/ digital marketing consultant (spoke with Dr. Coulter), review of inpatient medication list Pain: 6/10 intermittent aching pain in lower abdomen PO Intake: Tolerating clear liquid diet Voiding: no voiding problems Patient reports feeling better. She states that she still has lower abdominal pain, but it is occurring less frequently than yesterday. She rates her pain as 6/10 aching pain mostly in the lower abdomen. The patient was started on a clear liquid diet yesterday afternoon. The patient tolerated lunch well; however, after dinner she developed some nausea and started to dry heave. The patient notes that she had a very small amount of emesis. Her nausea resolved after receiving Zofran. The patient denies any increased abdominal pain after eating. She also reports that she is passing more gas today. The patient continues to have soft brown stools. The patient denies fevers, chills, sweats , chest pain, palpitations, claudication, cough, wheezing, shortness of breath, dysuria, hematuria, urinary retention, paralysis, weakness, numbness and tingling. Additional Comments: See HPI for pertinent positives and negatives. All other systems reviewed and negative. (Calli Castro ., MAEC) Objective Vital Signs Date Time Temp Pulse Resp B/P Pulse Ox O2 Delivery O2 Flow Rate FiO2 12/26/16 07:15 36.8 76 16 149/95 97 Room Air 12/26/16 05:17 149/89 12/25/16 23:30 Room Air 12/25/16 22:53 37.0 77 18 161/82 96 Room Air 12/25/16 16:45 95 Room Air 12/25/16 15:08 36.8 81 16 133/77 95 Room Air (Calli Castro ., MAEC) Physical Exam General Appearance: WD/WN, no apparent distress Eyes: normal inspection, PERRL, EOMI ENT: normal ENT inspection, hearing grossly normal, pharynx normal Neck: supple, no JVD, trachea midline Respiratory/Chest: lungs clear, normal breath sounds, no respiratory distress Cardiovascular: regular rate, rhythm, no gallop, no murmur Abdomen: normal bowel sounds, + distended, + tenderness (RLQ TTP) Extremities: non-tender, normal inspection, no pedal edema Neurologic/Psychiatric: alert, normal mood/affect, oriented x 3 Skin: normal color, warm/dry, no rash (Calli Castro ., JESSICA) Laboratory Results Last 24 Hours Test 12/26/16 06:23 Sodium Level 143 mmol/L Potassium Level 3.9 mmol/L Chloride Level 110 mmol/L Carbon Dioxide Level 25 mmol/L Anion Gap 8.0 mmol/L Blood Urea Nitrogen 4 mg/dl Creatinine 0.49 mg/dl Est Creatinine Clear Calc Drug Dose 78.3 ml/min Estimated GFR () 112.8 Estimated GFR (Non- 97.3 BUN/Creatinine Ratio 8.6 Random Glucose 91 mg/dl Calcium Level 7.8 mg/dl Magnesium Level 2.0 mg/dl (Calli Castro ., JESSICA) Assessment and Plan 71 y/o female with a history of hyperlipidemia, glaucoma, and depression who presented to the ED on 12/22 with right lower quadrant pain 2 days. Patient met sepsis criteria upon admission with HR>90, WBC>12k, and suspected source of infection. CT of abdomen and pelvis showed edematous changes of the cecum, terminal ileum and proximal ascending colon as well as mild to moderate pericolonic infiltrative changes. Sepsis secondary to colitis -Admit to MedSurg -Continue Cipro 400 mg IV q12h and Flagyl 500 mg IV q8h. Day #5 of 10 -C. difficile negative. WBC smear negative. Stool cultures negative. Ova and parasite pending -Continue pain control with morphine 2 mg IV q4h prn pain -Continue nausea control with Zofran 4 mg IV q6h prn nausea -KUB shows mildly distended and gas-filled loops of small bowel, likely ileus secondary to colitis. -Continue clear liquid diet, pt with some nausea and very small amount of vomiting yesterday after dinner. May be able to advance diet tomorrow. -Continue IVF with 1/2NSS + 20 mEq KCl at 100 cc/hr -GI consulted, appreciate recs: Clear liquid diet as tolerated. Trial of Bentyl 10 mg PO QID and Simethicone 80 mg PO QID prn gas/bloating. Patient will need outpatient colonoscopy in 4-[address] Padilla. -General surgery consulted, appreciate recs: Advancement of diet per GI and medicine. No need for immediate surgical intervention. Continue IV antibiotics. Acute appendicitis unlikely. Probable colitis. -Protonix 40 mg IV qd ordered, pt complaining of indigestion Hypokalemia--resolved -Potassium 3.2 on arrival -Given oral supplementation as well as IV fluids as above -Potassium 3.9 on 12/26 HLD--stable -Continue atorvastatin 20 mg PO qd Glaucoma--stable -Continue Lumigan and Combigan drops Depression -Continue Lexapro 10 mg PO qd Tobacco use -Tobacco cessation counseling given DVT prophylaxis -Enoxaparin 40 mg SC q24h -LILI to and SCDs Code Status -Level I, FULL RESUSCITATION STATUS This chart was completed in part utilizing [employer] Speech Voice Recognition software. Attempts were made to minimize the grammatical errors, random word insertions, pronoun errors and incomplete sentences. Any formal questions or concerns about the content, text or information contained within the body of this dictation should be directly addressed to the provider for clarification. (Calli Castro ., PA-C) Attending Attestation: Pt seen/examined, chart reviewed, care plan d/w VINICIO Castro. I agree w/ the rey components of her documentation. Nausea with dry heaves last pm but none since tolerating full liquids still with RLQ pain but "better" than previous multiple stools with some flatus overnight VSS no fever gen - NAD abd - distended but modestly improved from yesterday's exam; focal tenderness RLQ; other quadrants w/o pain CBC, BMP nl A/P: colitis with ileitis - infectious vs ischemic - clinically improving IBD on differential but the acuity would argue against such appreciate gen surg/GI consults lower fluid rate to 75cc/hr repeat imaging (x-rays) in AM supportive care cont full liquids if she worsens or fails to improve would need repeat abdominal CT colonoscopy IS planned in 6-8 weeks by MARITZA GONZALEZ MD (Remington Gonzalez MD)
[2016-12-26] MEDS: PANTOprazole INJ 40 MG in SYRINGE 0 ML IV SCH (11:43)
--- NOTE | 2016-12-26 13:10 | Gastroenterology Progress Note ---
Progress Note Date of Service: Dec 26, 2016 Subjective Pt evaluation today including: conversation w/ patient, physical exam, chart review, lab review Pt seen and examined. Episode of nausea & small emesis last night, all clear no blood/coffee ground. Passed BM this morning, pudding consistency and brown. Is passing gas. Denies any more nausea or vomiting. Tolerated clears this morning. RLQ abdominal pain is much decreased, occurs intermittently now, feels like a sharp pressure. Does not radiate 6/10. Feels slightly less bloated today. Review of Systems Constitutional: No chills, No fever Respiratory: No cough, No shortness of breath Cardiac: No chest pain, No edema Abdomen: + pain, No constipation, No diarrhea, No nausea, No vomiting Medications Current Inpatient Medications Medications (Trade) Dose Ordered Sig/Jose Route Start Time Stop Time Status Last Admin Dose Admin Ondansetron HCl (Zofran Inj) 4 mg Q6H PRN IV 12/22/16 18:15 01/21/17 18:14 12/25/16 22:32 4 MG Atorvastatin Calcium (Lipitor Tab) 20 mg HS PO 12/22/16 21:00 01/21/17 20:59 12/25/16 20:54 20 MG Escitalopram Oxalate (Lexapro Tab) 10 mg QAM PO 12/23/16 09:00 01/22/17 08:59 12/26/16 08:37 10 MG Bimatoprost (Lumigan 0.01%) 1 drops HS OPR 12/22/16 21:00 01/21/17 20:59 12/25/16 20:53 1 DROPS Miscellaneous Information 1 ea 1 ea QS N/A 12/22/16 21:00 01/21/17 20:59 Ciprofloxacin/ Dextrose 400 mg/ Prmx 200 ml @ 100 mls/hr Q12H IV 12/23/16 08:00 01/02/17 07:59 12/26/16 08:35 100 MLS/HR Metronidazole/Prmx (Flagyl / Nss/ Premixed Nss) 100 ml @ 100 mls/hr Q8H IV 12/23/16 04:00 01/02/17 03:59 12/26/16 03:54 100 MLS/HR Morphine Sulfate 2 mg 2 mg Q4 PRN IV 12/22/16 18:30 01/05/17 18:29 12/25/16 08:59 2 MG Potassium Chloride/Sodium Chloride (1/2 Nss + 20meq KCl 1000ml) 1,000 ml @ 100 mls/hr Q10H IV 12/22/16 21:00 01/21/17 20:59 12/26/16 03:55 100 MLS/HR Dicyclomine HCl (Bentyl Tab) 10 mg QID PO 12/23/16 13:00 01/22/17 12:59 12/26/16 08:36 10 MG Simethicone (Mylicon Chew Tab) 80 mg QID PRN PO 12/23/16 12:45 01/22/17 12:44 12/25/16 16:55 80 MG Enoxaparin Sodium (Lovenox Inj) 40 mg Q24H SQ 12/23/16 21:00 01/22/17 20:59 12/25/16 20:55 40 MG Ranitidine HCl 150 mg 150 mg HS PO 12/24/16 21:00 01/23/17 20:59 12/25/16 20:54 150 MG Pantoprazole Sodium/Syringe (Protonix Inj/ Syringe) 10 ml @ 5 mls/min DAILY@11 IV 12/24/16 12:00 01/23/17 11:59 12/26/16 11:43 5 MLS/MIN Objective Vital Signs Date Time Temp Pulse Resp B/P Pulse Ox O2 Delivery O2 Flow Rate FiO2 12/26/16 07:15 36.8 76 16 149/95 97 Room Air 12/26/16 05:17 149/89 12/25/16 23:30 Room Air 12/25/16 22:53 37.0 77 18 161/82 96 Room Air 12/25/16 16:45 95 Room Air 12/25/16 15:08 36.8 81 16 133/77 95 Room Air Physical Exam General Appearance: no apparent distress (sitting OOB in chair eating broth) Eyes: PERRL ENT: hearing grossly normal Neck: supple, trachea midline Respiratory/Chest: lungs clear, normal breath sounds, no respiratory distress, no accessory muscle use Cardiovascular: regular rate, rhythm, no edema, no gallop, no JVD Abdomen: normal bowel sounds, no organomegaly, no pulsatile mass, + distended, + tenderness (tenderness to palpation in RLQ) Neurologic/Psych: alert, normal mood/affect, oriented x 3 Skin: normal color, no jaundice, warm/dry, no rash Laboratory Results Last 24 Hours Test 12/26/16 06:23 Sodium Level 143 mmol/L Potassium Level 3.9 mmol/L Chloride Level 110 mmol/L Carbon Dioxide Level 25 mmol/L Anion Gap 8.0 mmol/L Blood Urea Nitrogen 4 mg/dl Creatinine 0.49 mg/dl Est Creatinine Clear Calc Drug Dose 78.3 ml/min Estimated GFR () 112.8 Estimated GFR (Non- 97.3 BUN/Creatinine Ratio 8.6 Random Glucose 91 mg/dl Calcium Level 7.8 mg/dl Magnesium Level 2.0 mg/dl Assessment and Plan Patient is a 71 year old female with abdominal pain, diarrhea and CT evidence suggestive of nonspecific inflammatory changes in the colon. Differentials include infectious colitis, nonspecific colitis, diverticulitis, nonspecific inflammatory bowel change, IBD. Her abdominal pain is moderately resolved. Passed one BM+ this morning, loose stools, no blood. Omeprazole 20 mg in the morning Avoid narcotics Trial of bentyl 10 mg QID Trial of simethicone 1 tab QID PRN gas, bloating Clear liquids as tolerated - may advance diet over the week if tolerated KUB tomorrow if no gas or stools or more bloated Hydration with IVF Continue to treat empirically with Cipro/Flagyl Outpatient colonoscopy in 4-6 weeks w/ Dr. Padilla Call with questions I have seen and examined the patient with Shruthi Reyes whose note reflects our findings and plan.
[2016-12-26 14:51] VITALS: BP 139/83; PULSE 77; TEMP 36.6; O2SAT 97
[2016-12-26] MEDS: RANITIDINE HCL 150 MG TAB PO SCH (20:32)
[2016-12-26] MEDS: ATORVASTATIN 20 MG TAB PO SCH (20:32)
[2016-12-26] MEDS: BIMATOPROST 0.01% OP SOLN 2.5 ML BTL OPR SCH (20:32)
[2016-12-26] MEDS: ENOXAPARIN 40 MG/0.4 ML SYR SQ SCH (20:34)
[2016-12-26] MEDS: MoRPHine SULFATE 2 MG/ML CARP IV PRN (23:39)
[2016-12-26 23:40] VITALS: BP 162/89; PULSE 78; TEMP 36.8; O2SAT 95
[2016-12-27] MEDS: METRONIDAZOLE / NSS 500 MG in PREMIXED NSS 100 ML IV SCH ×3 (04:10→21:31)
[2016-12-27 07:07] LABS: BUN/CREATININE RATIO 3.5 (10-20); CALCIUM 7.7 mg/dl (8.5-10.1); CREATININE 0.64 mg/dl (0.60-1.20); MAGNESIUM 1.9 mg/dl (1.8-2.4); POTASSIUM 4.1 mmol/L (3.5-5.1)
[2016-12-27 07:35] VITALS: BP 163/85; PULSE 76; TEMP 37.1; O2SAT 95
[2016-12-27] MEDS: CIPROFLOXACIN / D5W 400 MG in PREMIXED IN D5W 200 ML IV SCH (07:44)
[2016-12-27] MEDS: PANTOprazole INJ 40 MG in SYRINGE 0 ML IV SCH (07:45)
[2016-12-27] MEDS: COMBIGAN~ORDER AWAITING ACTION SCH ×2 (07:45→16:00)
[2016-12-27] MEDS: ESCITALOPRAM OXALATE 10 MG TAB PO SCH (07:46)
[2016-12-27] MEDS: DICYCLOMINE HCL 20 MG TAB PO SCH ×4 (07:46→21:00)
--- NOTE | 2016-12-27 09:05 | Hospitalist Progress Note ---
Hospitalist Progress Note Date of Service Dec 27, 2016. (Mayela Burciaga PA-C) Subjective Pt evaluation today including: conversation w/ patient, physical exam, chart review, lab review, review of studies, review of inpatient medication list Pain: none PO Intake: clear liquid Voiding: no voiding problems The patient was seen and examined this morning. She still feels that her abdomen is somewhat distended and bloated, she thinks this is about the same as yesterday. She is having loose bowel movements, this morning was brown like "chocolate pudding", but report she is not passing gas. Patient reports yesterday she felt somewhat nauseous and had dry heaves without vomiting when she ate. Today she has not felt nauseous since eating breakfast (pudding and coffee) and is agreeable to trying a full liquid diet for lunch. Patient was encouraged to ambulate ad rk today. Additional Comments: ROS: Constitutional: No fever, chills, sweats, fatigue or weakness Eyes: No diplopia, no changes in vision ENT: No sore throat, tinnitus, or trouble swallowing Respiratory: No shortness of breath, No dyspnea at rest or on exertion, no cough or sputum Cardiovascular: No chest pain, palpitations, or flutter Abdomen: + pain, + distention, minor tenderness in the RLQ with palpation, no rebound guarding or tenderness. Musculoskeletal: No calf pain, No joint pain, No swelling Genitourinary : No dysuria or urinary frequency, No hematuria Neurologic: No numbness/tingling, no difficulty with ambulation, no sensory or motor deficits Integumentary: No itch, No rash (Mayela Burciaga PA-C) Objective Vital Signs Date Time Temp Pulse Resp B/P Pulse Ox O2 Delivery O2 Flow Rate FiO2 12/27/16 07:35 37.1 76 15 163/85 95 Room Air 12/26/16 23:43 Room Air 12/26/16 23:40 36.8 78 14 162/89 95 Room Air 12/26/16 14:51 36.6 77 16 139/83 97 Room Air (Mayela Burciaga PA-C) Physical Exam Notes: General: awake, alert, no apparent distress Head: Normocephalic, atraumatic ENT: PERRL, EOMI, no pharyngeal exudate, mucous membranes moist Chest: Clear to auscultation, slightly diminished at bases, on room air, no adventitious breath sounds Cardiac: Regular rate and rhythm, no murmur, no JVD, normal peripheral pulses, good capillary refill Abdominal: NABS x 4 quadrants, soft, + mild distension with tympany on percussion, mildly tender in the RLQ, no rebound or guarding Extremities: Normal inspection, no peripheral edema or erythema, calfs nontender to palpation Psych: Normal mood and affect Neuro: AAO x 3, strength intact bilaterally and related 5/5, no motor deficits, speech is clear, no peripheral sensory deficits (Mayela Burciaga PA-C) Laboratory Results Last 24 Hours Test 12/27/16 06:12 Sodium Level 145 mmol/L Potassium Level 4.1 mmol/L Chloride Level 110 mmol/L Carbon Dioxide Level 31 mmol/L Anion Gap 4.0 mmol/L Blood Urea Nitrogen 2 mg/dl Creatinine 0.64 mg/dl Est Creatinine Clear Calc Drug Dose 60.0 ml/min Estimated GFR () 103.3 Estimated GFR (Non- 89.2 BUN/Creatinine Ratio 3.5 Random Glucose 92 mg/dl Calcium Level 7.7 mg/dl Magnesium Level 1.9 mg/dl (Mayela Burciaga PA-C) Assessment and Plan Patient is a 71 year old female with abdominal pain, diarrhea and CT evidence suggestive of nonspecific inflammatory changes in the colon. Differentials include infectious colitis, nonspecific colitis, diverticulitis, nonspecific inflammatory bowel change, IBD. Her abdominal pain is moderately resolved. Sepsis secondary to colitis: - Continue Cipro 400 mg IV q12h and Flagyl 500 mg IV q8h. (Day #6) - C. difficile negative. WBC smear negative. Stool cultures negative. Ova and parasite pending - Omeprazole 20 mg in the morning, rantitidine 150 mg QHS - Avoid narcotics if possible, will d/c morphine sulfate as pt pain is controlled - Antiemetics with zofran - Trial of bentyl 10 mg QID, Trial of simethicone 80 mg tab QID PRN gas, bloating - Cont full liquids - pt tolerated this am so can D/c IVFs. She denies nausea or vomiting this morning. With results of KUB below will have low threshold to make NPO. - KUB ordered for recheck IMPRESSION: 1. Increasing small bowel dilatation. The findings favor a small bowel obstruction. An ileus could appear similar although is considered less likely. 2. Possible small right pleural effusion. Diminished lung volumes. - Outpatient colonoscopy in 4-6 weeks w/ Dr. Padilla - General surgery consulted, appreciate recs: No need for immediate surgical intervention. Continue IV antibiotics. Acute appendicitis unlikely. Probable colitis. - Encouraged ambulation and incentive spirometry HTN - SBP 163/80s this am, has been trending slightly high. Hypokalemia - resolved - Given oral supplementation as well as IV fluids as above - Potassium 4.1 today HLD -stable -Continue atorvastatin 20 mg PO qd Glaucoma - stable - Continue Lumigan and Combigan drops Depression - Continue Lexapro 10 mg PO qd Tobacco use - Tobacco cessation counseling given DVT prophylaxis: Enoxaparin 40 mg SC q24h, enzo, scds Code Status: FULL CODE Disposition: From home,discharge when medically stable. (Mayela Burciaga, PAMercedes) Attending Attestation: Pt seen/examined, chart reviewed, care plan d/w VINICIO Burciaga. I agree w/ the rey components of her documentation with the following exceptions : During my visit (afternoon of 12/27/16) the patient complained of ongoing RLQ abdominal pain. She reported that w/ any oral intake that specific location would feel the worst. Still bloated/distended and passing some stool but little gas. No fever. VSS exam - abd - tender over McBurney's point, distended, BS+, no HSM, no peritoneal signs x-rays from the AM showed worsening bowel gas pattern Following my visit I spoke with Dr. Sultana and we both felt that repeat CT imaging was necessary to exclude developing appendicitis. CT was ordered STAT, and her CT showed suspected ruptured appendicitis. Patient was immediately made aware of the results and need for surgical management in the OR in the AM. Patient's niece was also notified by phone of CT results and plan of care. Patient made strict NPO. IVF restarted. Cipro changed to zosyn; flagyl continued. Remington Gonzalez MD (Remington Gonzalez MD)
--- NOTE | 2016-12-27 09:56 | Progress Note ---
Progress Note Date of Service Dec 27, 2016. Progress Note I attempted to see the patient multiple times today. She was not in the room. Please call with any questions, will try and re-evalaute on Thursday.
--- NOTE | 2016-12-27 10:06 | DIAGNOSTIC IMAGING REPORT ---
PA CHEST RADIOGRAPH AND UPRIGHT AND SUPINE AP RADIOGRAPHS OF THE ABDOMEN CLINICAL HISTORY: Evaluate for ongoing ileus. COMPARISON STUDY: Chest radiograph July 28, 2014, CT of the abdomen and pelvis December 22, 2016 and KUB December 24, 2016 FINDINGS: Lung volumes are mildly diminished. Mild bibasilar opacities favor atelectasis. There is no evidence of pulmonary edema. There may be a small right pleural effusion. Lumbosacral fusion is noted. There is no free air. Mild dilatation of multiple small bowel loops is noted. This has mildly increased since exam December 24, 2016. There is scattered minimal colonic gas. IMPRESSION: 1. Increasing small bowel dilatation. The findings favor a small bowel obstruction. An ileus could appear similar although is considered less likely. 2. Possible small right pleural effusion. Diminished lung volumes. Electronically signed by: Jose Daniel Enamorado M.D. 12/27/2016 10:04 AM Dictated Date/Time: 12/27/2016 9:51 AM
--- NOTE | 2016-12-27 10:55 | SURGERY PROGRESS NOTE ---
DATE: 12/27/[address] Coulter. SUBJECTIVE: Eneida appears to feel better. She still has pain in the right lower quadrant, this morning it is pinpoint. Her last vitals showed a temperature of 37.1, pulse 76, respirations 15, blood pressure 163/85, O2 sats 95 on room air. Urine output is 250 overnight. Laboratory studies this morning is pending, but her white count yesterday was normal without a left shift. The chemistries showed a BUN of 2, creatinine 0.64 this morning. Her abdomen is softly distended and exquisite tenderness at the McBurney's point, almost typical for acute appendicitis. At this point, since clinically she is improved, we continue present therapy. She states she feels much better than when she first came in. [facility]
[2016-12-27 15:22] VITALS: BP 146/84; PULSE 81; TEMP 37; O2SAT 97
[2016-12-27] MEDS ORDERED: OPTIRAY 320 IV PRN (16:30)
--- NOTE | 2016-12-27 19:23 | DIAGNOSTIC IMAGING REPORT ---
CT OF THE ABDOMEN AND PELVIS WITH CONTRAST CLINICAL HISTORY: Ongoing right lower quadrant abdominal pain. COMPARISON STUDY: CT of the abdomen and pelvis December 22, 2016 and abdominal series performed earlier today. TECHNIQUE: Following IV administration of 100 mL of Optiray-320, axial images of the abdomen and pelvis were obtained from the lung bases to the proximal femurs. Images were reviewed in the axial, sagittal, and coronal planes. IV contrast was administered without complication. Oral contrast was administered. CT DOSE: 292.85 mGy.cm FINDINGS: Visualized portions of the lower chest demonstrate trace bilateral pleural effusions. There are numerous hepatic cysts which measure up to 5.5 cm. The spleen, adrenal glands are unremarkable. There is borderline dilatation of the main pancreatic duct which is suboptimally assessed due to streak artifact from spinal hardware. There is mild small bowel dilatation which is increased since CT of December 22, 2016. The appendix is dilated, measuring 1 cm in caliber. There is adjacent extraluminal gas along the anterior aspect of the base of the appendix. There are several pockets of extraluminal gas within the right lower quadrant with multiple small rim-enhancing pericecal fluid collections which suggest developing abscesses. There is a small amount of fluid within the pelvis. This colonic diverticulosis. Wall thickening of the cecum is noted. Skeletal structures are unremarkable. IMPRESSION: Findings suggestive of perforated acute appendicitis. Suspected perforation of the anterior appendiceal base with multiple pericecal gas and fluid containing collections which suggest developing abscesses/phlegmon. Associated cecal wall thickening is likely secondary to acute appendicitis. Mild small bowel dilatation could reflect an ileus or partial small bowel obstruction related to the inflammatory process. Findings discussed with Dr. Gonzalez at time of dictation. Electronically signed by: Jose Daniel Enamorado M.D. 12/27/2016 7:22 PM Dictated Date/Time: 12/27/2016 7:09 PM
[2016-12-27] MEDS: ENOXAPARIN 40 MG/0.4 ML SYR SQ SCH (19:39)
[2016-12-27] MEDS ORDERED: NURSING VERBAL MED ORDER ONE (19:45)
[2016-12-27] MEDS ORDERED: PIPERACILL/TAZOBAC CONSULT ACTIVE PRN (20:00)
[2016-12-27] MEDS ORDERED: PIPERACILL/TAZOBAC IV 3.375 GM in DEXTROSE 5% 100ML IV ONE (20:00)
[2016-12-27] MEDS: RANITIDINE HCL 150 MG TAB PO SCH (21:00)
[2016-12-27] MEDS: ATORVASTATIN 20 MG TAB PO SCH (21:00)
[2016-12-27] MEDS: D5W AND 1/2NSS + 20MEQ KCL 1,000 ML IV SCH (21:30)
[2016-12-27] MEDS: BIMATOPROST 0.01% OP SOLN 2.5 ML BTL OPR SCH (21:31)
[2016-12-27] MEDS: ONDANSETRON INJ 2 MG/ML 2 ML VIAL IV PRN (21:32)
[2016-12-27 23:13] VITALS: BP 164/88; PULSE 72; TEMP 36.9; O2SAT 99
[2016-12-28] VITALS (8 sets, daily range): BP systolic 109–155; BP diastolic 69–86; PULSE 71–101; TEMP 36.6–37.6; O2SAT 92–98
[2016-12-28] MEDS: PIPERACILL/TAZOBAC IV 3.375 GM in DEXTROSE 5% 100ML 100 ML IV SCH ×3 (02:31→18:40)
[2016-12-28] MEDS: METRONIDAZOLE / NSS 500 MG in PREMIXED NSS 100 ML IV SCH ×2 (04:37→12:28)
[2016-12-28] MEDS: D5W AND 1/2NSS + 20MEQ KCL 1,000 ML IV SCH ×2 (05:31→12:02)
[2016-12-28 07:03] LABS: BUN/CREATININE RATIO 2.3 (10-20); CREATININE 0.72 mg/dl (0.60-1.20); POTASSIUM 3.4 mmol/L (3.5-5.1)
[2016-12-28] MEDS: COMBIGAN~ORDER AWAITING ACTION SCH ×3 (08:00→15:25)
[2016-12-28] MEDS ORDERED: ATROPINE SULFATE 0.1 MG/ML 5ML SYR IV PRN (08:00)
[2016-12-28] MEDS ORDERED: EpHEDrine SULFATE INJ 50 MG/ML AMP IV PRN (08:00)
[2016-12-28] MEDS ORDERED: ONDANSETRON INJ 2 MG/ML 2 ML VIAL IV PRN (08:00)
[2016-12-28] MEDS ORDERED: FENTANYL CITRATE INJ 50 MCG/1 ML 2 ML VIAL ONE ×2 (08:04→09:18)
[2016-12-28] MEDS ORDERED: LIDOCAINE HCL 2% 2 ML VIAL (20MG/ML) ONE (08:04)
[2016-12-28] MEDS ORDERED: PROPOFOL IV EMULSION 10 MG/ML 20 ML VIAL IV ONE (08:04)
[2016-12-28] MEDS ORDERED: ROCURONIUM BROMIDE 10 MG/ML 5 ML VIAL ONE (08:04)
[2016-12-28] MEDS ORDERED: LIDOCAINE/EPINEPHRINE 1% 20 ML VIAL ONE (08:13)
--- NOTE | 2016-12-28 08:37 | SURGERY PROGRESS NOTE ---
DATE: 12/28/[address] Coulter. I discussed the case with Dr. Gonzalez last evening. The patient, when I saw her for the first time yesterday; to me had typical acute appendicitis pattern with localized tenderness in the right lower quadrant. A CAT scan was repeated last evening which showed most likely appendix as the etiology of a ruptured appendix. As I see her today, she is more tender and localized in her right lower quadrant. With this, we will proceed with surgery. Risks and complications of surgery were explained to the patient of bleeding, infection, possible bowel resection and she would like to proceed accordingly. We will do it as an open procedure. LAVERN
[2016-12-28] MEDS: DICYCLOMINE HCL 20 MG TAB PO SCH ×4 (09:00→21:00)
[2016-12-28] MEDS: ESCITALOPRAM OXALATE 10 MG TAB PO SCH (09:00)
[2016-12-28] MEDS ORDERED: EpHEDrine SULFATE 50MG/5ML SYR ONE (09:25)
[2016-12-28] MEDS ORDERED: NEOSTIGMINE METHYLSULFATE 5 MG/5 ML SYR ONE (09:42)
[2016-12-28] MEDS ORDERED: GLYCOPYRROLATE INJ 0.2 MG/ML VIAL ONE (09:42)
--- NOTE | 2016-12-28 09:54 | [facility] Post Operative Brief Note ---
Immediate Operative Summary Operative Date Dec 28, 2016. Pre-Operative Diagnosis ruptured appendicitis Post-Operative Diagnosis same Procedure(s) Performed open appendectomy Surgeon jess [employer] Surgeon(s) 0 Estimated Blood Loss 10cc Findings ruptured appendix at cecal base Specimens appendix c and s peritoneal fluid Drains 19 elif pelvis
--- NOTE | 2016-12-28 10:16 | Hospitalist Progress Note ---
Hospitalist Progress Note Date of Service Dec 28, 2016. (Mayela Burciaga PA-C) Subjective Pt evaluation today including: conversation w/ patient, physical exam, chart review, lab review, review of studies, review of inpatient medication list Pain: Moderate RLQ abdominal PO Intake: NPO Voiding: davis catheter in place Pt was seen and examined in the PACU. She is currently awake and VSS are stable. She has complaints of moderate abdominal pain and was just given fentanyl 50 mcg per nursing at bedside. She has a NGT in place. She has no acute complaints otherwise and is doing. Constitutional: No chills, No fever Eyes: No diplopia, No redness ENT: No dental problems, No nasal symptoms Respiratory: No dyspnea at rest, No dyspnea on exertion, No shortness of breath Cardiovascular: No chest pain, No palpitations Abdomen: + pain, No constipation, No diarrhea, No nausea, No vomiting Musculoskeletal: No joint pain, No swelling Skin: No itch, No rash (Mayela Burciaga PA-C) Objective Vital Signs Date Time Temp Pulse Resp B/P Pulse Ox O2 Delivery O2 Flow Rate FiO2 12/28/16 06:58 37.0 71 15 150/86 97 Room Air 12/27/16 23:47 Room Air 12/27/16 23:13 36.9 72 18 164/88 99 Room Air 12/27/16 16:10 Room Air 12/27/16 15:22 37.0 81 16 146/84 97 Room Air (Mayela Burciaga PA-C) Physical Exam General Appearance: WD/WN, no apparent distress Eyes: PERRL, EOMI ENT: hearing grossly normal, pharynx normal Neck: supple, no JVD Respiratory/Chest: chest non-tender, lungs clear, no respiratory distress, no accessory muscle use Cardiovascular: regular rate, rhythm, no JVD, no murmur Abdomen: + pertinent finding (Hypoactive bowel sounds, bandage over RLQ, JAMEY drain in place, +mild distension, generalized tenderness with palpation.) Extremities: normal range of motion, non-tender, no pedal edema, no calf tenderness Neurologic/Psychiatric: alert, normal mood/affect, oriented x 3 Skin: warm/dry, no rash (Mayela Burciaga PA-C) Laboratory Results Last 24 Hours Test 12/28/16 06:10 Sodium Level 144 mmol/L Potassium Level 3.4 mmol/L Chloride Level 107 mmol/L Carbon Dioxide Level 30 mmol/L Anion Gap 7.0 mmol/L Blood Urea Nitrogen 2 mg/dl Creatinine 0.72 mg/dl Est Creatinine Clear Calc Drug Dose 53.3 ml/min Estimated GFR () 97.0 Estimated GFR (Non- 83.7 BUN/Creatinine Ratio 2.3 Random Glucose 112 mg/dl Calcium Level 8.0 mg/dl Magnesium Level 2.0 mg/dl (Mayela Burciaga PA-C) Assessment and Plan Patient is a 71 year old female with abdominal pain, diarrhea and CT evidence suggestive of nonspecific inflammatory changes in the colon. Differentials include infectious colitis, nonspecific colitis, diverticulitis, nonspecific inflammatory bowel change, IBD. Her abdominal pain is moderately resolved. Sepsis secondary to colitis and now found Perforated Appendix s/p surgical intervention - Dr. Sultana took pt to the OR today (12/28) for open appendectomy. - antibiotics were likely masking symptoms of the appendix perf. Repeat CT yesterday after KUB showed the appendix concerning for perforation, and the patients symptoms became more focal in the RLQ along with abdominal distension. Decision was made to take to the OR. - Continue Cipro 400 mg IV q12h and Flagyl 500 mg IV q8h. (Day #7) - Gen surg and GI on board - Omeprazole 20 mg in the morning, rantitidine 150 mg QHS - Allow morphine sulfate s/p surg if needed for analgesia, pt has fentanyl on in the PACU, continue other analgesia per general surgery - Antiemetics with zofran - Will need follow up with GI as an outpatient - Encouraged ambulation and incentive spirometry HTN - SBP 163/80s this am, has been trending slightly high. Hypokalemia - Potassium 3.4 today, replaced via IV, continue to monitor. HLD -stable -Continue atorvastatin 20 mg PO qd Glaucoma - stable - Continue Lumigan and Combigan drops Depression - Continue Lexapro 10 mg PO qd Tobacco use - Tobacco cessation counseling given DVT prophylaxis: Enoxaparin 40 mg SC q24h, enzo, scds Code Status: FULL CODE Disposition: From home, possible discharge within 1-2 days per surgery. Medically stable. (Mayela Burciaga, JESSICA) Attending Attestation: Pt seen/examined, chart reviewed, care plan d/w VINICIO Burciaga. I agree w/ the rey components of her documentation with the following exceptions : patient is on zosyn, not cipro. Flagyl remains. Pt underwent open appendectomy this am. I saw her on the surgical floor multiple hours later. She had severe abd pain post-op; pain is now better/ Mentions abd distension is better today. VSS no fever abd - softer today, BS+ but hypoactive, dressings intact, appropriately tender especially operative site, no HSM A/P: Admitted earlier this week with initial concern of ileitis/colitis but failing to improve. Repeat CT last evening with suspected perforated appendicitis. She is now s/p open appendectomy earlier today. The bowel issues may have been 2nd/reactive to the main problem (appendicitis). At any rate most of her care will be dictated by . Cont IVF, IV abx, etc. Remington Gonzalez MD (Remington Gonzalez MD)
[2016-12-28] MEDS: FENTANYL CITRATE INJ 50 MCG/1 ML 2 ML VIAL IV PRN ×2 (10:43→10:49)
--- NOTE | 2016-12-28 10:45 | Anesthesiology Progress Note ---
Anesthesia Post Op Note Date & Time Dec 28, 2016 at 10:45 Vital Signs Vital Signs Past 12 Hours Date Time Temp Pulse Resp B/P Pulse Ox O2 Delivery O2 Flow Rate FiO2 12/28/16 10:35 67 20 168/84 98 Room Air Mask 12/28/16 10:25 68 20 168/76 99 Room Air Mask 12/28/16 10:15 68 20 158/92 100 Mask 5 12/28/16 10:06 36.0 71 20 160/75 100 Mask 5 12/28/16 06:58 37.0 71 15 150/86 97 Room Air 12/27/16 23:47 Room Air 12/27/16 23:13 36.9 72 18 164/88 99 Room Air Notes Mental Status: alert / awake / arousable, participated in evaluation Pt Amnestic to Procedure: Yes Nausea / Vomiting: adequately controlled Pain: adequately controlled Airway Patency, RR, SpO2: stable & adequate BP & HR: stable & adequate Hydration State: stable & adequate Anesthetic Complications: no major complications apparent
[2016-12-28] MEDS: POTASSIUM CHLR 10 MEQ / WTR 10 MEQ in PREMIXED WATER 100 ML IV SCH ×2 (12:03→13:25)
[2016-12-28] MEDS: PANTOprazole INJ 40 MG in SYRINGE 0 ML IV SCH (12:09)
[2016-12-28] MEDS: MoRPHine SULFATE 2 MG/ML CARP IV PRN (12:19)
[2016-12-28] MEDS: HYDROmorphone INJ 0.5 MG/0.5 ML SYR IV PRN ×3 (13:53→21:20)
--- NOTE | 2016-12-28 15:36 | OPERATIVE REPORT ---
DATE OF OPERATION: 12/28/2016 SURGEON: Dr. Sultana. PREOPERATIVE DIAGNOSIS: Ruptured appendicitis. POSTOPERATIVE DIAGNOSIS: Same. PROCEDURE: Open appendectomy. SUMMARY: The patient was brought into the operating room theater. Velásquez catheter was placed, an NG tube was positioned. The abdomen was prepped with Betadine solution and properly draped. I made a transverse incision in right McBurney's point about 2-1/2 inches long, deepened through subcutaneous tissue, once we were in the subQ, we met some edema in the abdominal wall. We went on and opened the external oblique along its fibers. We muscle split and entered the peritoneal cavity. The peritoneum itself was hard to delineate, a significant amount of inflammatory changes were appreciated. Once we were able to get into the belly, I Placed a finger, I was able to identify the cecal area. There was a fibrinous exudate on the cecal itself. We mobilized this sufficiently then I could palpate the appendix coming inferiorly, medially towards the pelvis. We were able then to elevate it out of the base and as we elevated it out, could see it acutely inflamed, but the base itself was disrupted, that probably is the site of perforation. There was very friable tissue in that area. At this point then we were able then to mobilize the cecal area sufficiently enough that we divided the mesoappendix using right angle ligated with 2-0 silk. The base of the appendix on the cecum was actually taken with 2 loads of the LEONARDO. What we saw is right in the mid portion of it to the significant tissue inflammation in the area that a little bit, therefore we closed the small opening which was about 3 mm in the mid portion of the staple line, oversewed that with 3-0 silk, then I inverted the whole staple line with 3-0 silk suture, the closure appeared to be quite secure. We irrigated the area, taking some cultures. At this point, I elected to drain the pelvic area by placing a 19 round drain inferior to the incision and bringing it out and placing it on the pelvic area, attaching it to skin edges with 2-0 silk suture. We basically closed the muscle splitting internal oblique and the transversalis in 1 single closure with #0 chromic interrupted suture then I was able to close the external oblique fascia with interrupted 0 Vicryl suture securely. Subcutaneous tissue was closed loosely with 2-[address] a piece of the Arash drain in the subQ to drain the subcutaneous tissue, attached to either end of the incision with chromic suture, renee and then a dressing was applied. The procedure was tolerated well by the patient. Estimated blood loss approximately 10 mL. The patient was taken to the recovery room in good condition. I attest to the content of the Intraoperative Record and any orders documented therein. Any exceptions are noted below. ANAD
[2016-12-28] MEDS: ATORVASTATIN 20 MG TAB PO SCH (21:00)
[2016-12-28] MEDS: RANITIDINE HCL 150 MG TAB PO SCH (21:00)
[2016-12-28] MEDS: BIMATOPROST 0.01% OP SOLN 2.5 ML BTL OPR SCH (21:09)
[2016-12-28] MEDS: HEPARIN SOD 5000 UNIT/0.5 ML CARP SQ SCH (21:10)
[2016-12-29] MEDS: PIPERACILL/TAZOBAC IV 3.375 GM in DEXTROSE 5% 100ML 100 ML IV SCH ×3 (02:34→17:50)
[2016-12-29] MEDS: D5W AND 1/2NSS + 20MEQ KCL 1,000 ML IV SCH ×3 (02:34→21:08)
[2016-12-29 03:04] VITALS: BP 116/74; PULSE 97; TEMP 37.2; O2SAT 91
--- NOTE | 2016-12-29 05:37 | SURGERY PROGRESS NOTE ---
DATE: 12/29/2016 SUBJECTIVE: Eneida's 1st postoperative day status post open appendectomy for ruptured appendix. She is resting comfortably. She is alert, coherent. Intraoperative findings were discussed with the patient. Her last vitals showed a temperature of 37.2, pulse 97, respirations 16, blood pressure 116/74, O2 sats 91% on room air. I\T\O, she had 750 yesterday and nothing has been recorded yet, but the Velásquez is intact and she has moderate amount of urine, which is clear. The Arash drainage is only 180, serosanguineous, noncloudy. The abdomen is softly distended as it was preop and no real tenderness. The NG drainage was minimal. At this point, we will discontinue the NG tube and discontinue the Velásquez, increase her activity, but go slow on oral intake until her GI tract is functioning. The lab this morning is pending.
[2016-12-29] MEDS: HYDROmorphone INJ 0.5 MG/0.5 ML SYR IV PRN ×5 (06:14→23:25)
[2016-12-29 07:08] LABS: HEMATOCRIT 36.9 % (37-47); MEAN CELL VOLUME 91.6 fL (80-100); MEAN CORPUSCULAR HGB CONC 32.8 g/dl (32-36); MEAN PLATELET VOLUME 9.4 fL (7.4-10.4); PLATELET COUNT 410 K/uL (130-400); RED BLOOD COUNT 4.03 M/uL (4.2-5.4); WHITE BLOOD COUNT 15.36 K/uL (4.8-10.8)
[2016-12-29] MEDS: COMBIGAN~ORDER AWAITING ACTION SCH ×4 (07:23→23:25)
[2016-12-29 07:45] LABS: BUN/CREATININE RATIO 2.1 (10-20); CALCIUM 7.6 mg/dl (8.5-10.1); CREATININE 0.7 mg/dl (0.60-1.20); POTASSIUM 3.4 mmol/L (3.5-5.1)
[2016-12-29 08:01] VITALS: BP 108/66; PULSE 88; TEMP 36.9; O2SAT 94
[2016-12-29 08:24] VITALS: O2SAT 94
[2016-12-29] MEDS: DICYCLOMINE HCL 20 MG TAB PO SCH ×4 (08:42→21:08)
[2016-12-29] MEDS: ESCITALOPRAM OXALATE 10 MG TAB PO SCH (08:42)
[2016-12-29] MEDS: HEPARIN SOD 5000 UNIT/0.5 ML CARP SQ SCH ×2 (08:46→21:13)
[2016-12-29] MEDS: PANTOprazole INJ 40 MG in SYRINGE 0 ML IV SCH (10:41)
[2016-12-29 11:38] VITALS: BP 120/72; PULSE 86; TEMP 36.7; O2SAT 94
[2016-12-29 15:08] VITALS: BP 125/78; PULSE 89; TEMP 36.6; O2SAT 94
--- NOTE | 2016-12-29 17:08 | Hospitalist Progress Note ---
Hospitalist Progress Note Date of Service Dec 29, 2016. Subjective No new concerns. abdomen feels much better. Constitutional: No fever Respiratory: No shortness of breath Cardiovascular: No chest pain Objective Vital Signs Date Time Temp Pulse Resp B/P Pulse Ox O2 Delivery O2 Flow Rate FiO2 12/29/16 15:45 Room Air 12/29/16 15:08 36.6 89 16 125/78 94 Room Air 12/29/16 11:38 36.7 86 14 120/72 94 Room Air 12/29/16 08:24 94 Room Air 12/29/16 08:01 36.9 88 14 108/66 94 Room Air 12/29/16 07:15 Room Air 12/29/16 03:04 37.2 97 16 116/74 91 Room Air 12/29/16 00:20 Room Air 12/28/16 22:55 37.4 101 16 109/69 92 Room Air 12/28/16 19:34 37.6 96 18 129/72 94 Physical Exam General Appearance: no apparent distress Respiratory/Chest: lungs clear, no respiratory distress Cardiovascular: regular rate, rhythm Abdomen: soft, + tenderness (incisional), + pertinent finding (diminished bowel sounds. JAMEY drain +) Neurologic/Psychiatric: alert, oriented x 3 Skin: warm/dry Laboratory Results Last 24 Hours Test 12/29/16 06:30 White Blood Count 15.36 K/uL Red Blood Count 4.03 M/uL Hemoglobin 12.1 g/dL Hematocrit 36.9 % Mean Corpuscular Volume 91.6 fL Mean Corpuscular Hemoglobin 30.0 pg Mean Corpuscular Hemoglobin Concent 32.8 g/dl RDW Standard Deviation 52.1 fL RDW Coefficient of Variation 15.4 % Platelet Count 410 K/uL Mean Platelet Volume 9.4 fL Sodium Level 139 mmol/L Potassium Level 3.4 mmol/L Chloride Level 103 mmol/L Carbon Dioxide Level 29 mmol/L Anion Gap 7.0 mmol/L Blood Urea Nitrogen 2 mg/dl Creatinine 0.70 mg/dl Est Creatinine Clear Calc Drug Dose 54.8 ml/min Estimated GFR () 100.3 Estimated GFR (Non- 86.6 BUN/Creatinine Ratio 2.1 Random Glucose 136 mg/dl Calcium Level 7.6 mg/dl Assessment and Plan 71 year old female with abdominal pain, diarrhea and CT evidence suggestive of nonspecific inflammatory changes in the colon. Differentials include infectious colitis, nonspecific colitis, diverticulitis, nonspecific inflammatory bowel change, IBD. Her abdominal pain is moderately resolved. Sepsis secondary to colitis and now found Perforated Appendix s/p surgical intervention - open appendectomy on 12/28. - antibiotics were likely masking symptoms of the appendix perf. Repeat CT on after KUB showed the appendix concerning for perforation, and the patients symptoms became more focal in the RLQ along with abdominal distension. Decision was made to take to the OR. - Continue Zosyn and Flagyl (switched to zosyn from cipro) - Omeprazole 20 mg in the morning, ranitidine 150 mg QHS - Pain control - morphine sulfate, dilaudid - Antiemetics with zofran - now on ice chips - Encouraged ambulation and incentive spirometry HTN - SBP 163/80s this am, has been trending slightly high. Hypokalemia - Potassium 3.4 today, replaced via IV, continue to monitor. HLD -stable -Continue atorvastatin 20 mg PO qd Glaucoma - stable - Continue Lumigan and Combigan drops Depression - Continue Lexapro 10 mg PO qd Tobacco use - Tobacco cessation counseling given DVT prophylaxis: Enoxaparin 40 mg SC q24h, enzo, scds Code Status: FULL CODE Disposition: From home, possible discharge within 1-2 days per surgery. Medically stable.
[2016-12-29] MEDS: POTASSIUM CHLR 10 MEQ / WTR 10 MEQ in PREMIXED WATER 100 ML IV SCH ×2 (19:08→21:08)
[2016-12-29] MEDS: BIMATOPROST 0.01% OP SOLN 2.5 ML BTL OPR SCH (21:08)
[2016-12-29] MEDS: RANITIDINE HCL 150 MG TAB PO SCH (21:08)
[2016-12-29] MEDS: ATORVASTATIN 20 MG TAB PO SCH (21:08)
[2016-12-29 23:06] VITALS: BP 135/86; PULSE 91; TEMP 37.1; O2SAT 93
[2016-12-30] MEDS: PIPERACILL/TAZOBAC IV 3.375 GM in DEXTROSE 5% 100ML 100 ML IV SCH ×3 (01:38→18:17)
[2016-12-30] MEDS: D5W AND 1/2NSS + 20MEQ KCL 1,000 ML IV SCH ×2 (07:20→17:13)
[2016-12-30] MEDS: COMBIGAN~ORDER AWAITING ACTION SCH ×3 (07:20→23:46)
--- NOTE | 2016-12-30 07:59 | Surgery Progress Note ---
Surgery Progress Note Date of Service Dec 30, 2016. Subjective Post OP Day: 2 + diet (ice), + feeling well, + pain controlled, No bowel movement, No flatus, No nausea Objective Vital Signs: Date Time Temp Pulse Resp B/P Pulse Ox O2 Delivery O2 Flow Rate FiO2 12/29/16 23:15 Room Air 12/29/16 23:06 37.1 91 16 135/86 93 Room Air 12/29/16 15:45 Room Air 12/29/16 15:08 36.6 89 16 125/78 94 Room Air 12/29/16 11:38 36.7 86 14 120/72 94 Room Air 12/29/16 08:24 94 Room Air 12/29/16 08:01 36.9 88 14 108/66 94 Room Air Physical Exam: Elif drainage (10 cc overnight, serous) Abdomen: non tender, soft, + distended (minimal) Incision(s): clean, dry, no erythema Assessment & Plan perf appendicitis/colitis WBC spiked but afebrile, on Zosyn, will repeat in AM can have clears sparingly ambulating leave elif and subQ drains
[2016-12-30 08:25] VITALS: BP 142/82; PULSE 88; TEMP 37; O2SAT 96
[2016-12-30] MEDS: ESCITALOPRAM OXALATE 10 MG TAB PO SCH (08:46)
[2016-12-30] MEDS: DICYCLOMINE HCL 20 MG TAB PO SCH ×4 (08:46→21:29)
[2016-12-30] MEDS: HEPARIN SOD 5000 UNIT/0.5 ML CARP SQ SCH ×2 (08:49→21:27)
[2016-12-30] MEDS: HYDROmorphone INJ 0.5 MG/0.5 ML SYR IV PRN ×4 (09:52→23:46)
[2016-12-30] MEDS: PANTOprazole INJ 40 MG in SYRINGE 0 ML IV SCH (10:30)
[2016-12-30 11:08] LABS: BASO % 0.1 %; BASO ABS # 0.01 K/uL (0-0.2); COMPLETE YES; EOS % 0.8 %; HEMATOCRIT 34.8 % (37-47); IG% 0.6 %; LYMPH % 8.6 %; LYMPH ABS # 1.14 K/uL (1.2-3.4); MEAN CELL VOLUME 91.3 fL (80-100); MEAN CORPUSCULAR HEMOGLOBIN 29.7 pg (25-34); MEAN CORPUSCULAR HGB CONC 32.5 g/dl (32-36); MEAN PLATELET VOLUME 9.2 fL (7.4-10.4); MONO % 7.2 %; NEUT % 82.7 %; PLATELET COUNT 402 K/uL (130-400); RED BLOOD COUNT 3.81 M/uL (4.2-5.4); WHITE BLOOD COUNT 13.25 K/uL (4.8-10.8)
[2016-12-30 11:34] LABS: BUN/CREATININE RATIO 3.7 (10-20); CALCIUM 7.6 mg/dl (8.5-10.1); CREATININE 0.64 mg/dl (0.60-1.20); POTASSIUM 3.9 mmol/L (3.5-5.1)
--- NOTE | 2016-12-30 12:43 | Hospitalist Progress Note ---
Hospitalist Progress Note Date of Service Dec 30, 2016. Subjective continuing to feel better. Constitutional: No fever Respiratory: No shortness of breath Cardiovascular: No chest pain Abdomen: + pain (controlled), No nausea Objective Vital Signs Date Time Temp Pulse Resp B/P Pulse Ox O2 Delivery O2 Flow Rate FiO2 12/30/16 08:25 37.0 88 16 142/82 96 Room Air 12/30/16 07:15 Room Air 12/29/16 23:15 Room Air 12/29/16 23:06 37.1 91 16 135/86 93 Room Air 12/29/16 15:45 Room Air 12/29/16 15:08 36.6 89 16 125/78 94 Room Air Physical Exam General Appearance: no apparent distress Respiratory/Chest: lungs clear, no respiratory distress Cardiovascular: regular rate, rhythm Abdomen: normal bowel sounds, soft, + tenderness (incisional), + pertinent finding (elif drain in place) Neurologic/Psychiatric: alert, oriented x 3 Skin: warm/dry Laboratory Results Last 24 Hours Test 12/30/16 10:50 White Blood Count 13.25 K/uL Red Blood Count 3.81 M/uL Hemoglobin 11.3 g/dL Hematocrit 34.8 % Mean Corpuscular Volume 91.3 fL Mean Corpuscular Hemoglobin 29.7 pg Mean Corpuscular Hemoglobin Concent 32.5 g/dl Platelet Count 402 K/uL Mean Platelet Volume 9.2 fL Neutrophils (%) (Auto) 82.7 % Lymphocytes (%) (Auto) 8.6 % Monocytes (%) (Auto) 7.2 % Eosinophils (%) (Auto) 0.8 % Basophils (%) (Auto) 0.1 % Neutrophils # (Auto) 10.96 K/uL Lymphocytes # (Auto) 1.14 K/uL Monocytes # (Auto) 0.96 K/uL Eosinophils # (Auto) 0.10 K/uL Basophils # (Auto) 0.01 K/uL RDW Standard Deviation 52.3 fL RDW Coefficient of Variation 15.6 % Immature Granulocyte % (Auto) 0.6 % Immature Granulocyte # (Auto) 0.08 K/uL Sodium Level 143 mmol/L Potassium Level 3.9 mmol/L Chloride Level 108 mmol/L Carbon Dioxide Level 32 mmol/L Anion Gap 3.0 mmol/L Blood Urea Nitrogen 2 mg/dl Creatinine 0.64 mg/dl Est Creatinine Clear Calc Drug Dose 60.0 ml/min Estimated GFR () 103.3 Estimated GFR (Non- 89.2 BUN/Creatinine Ratio 3.7 Random Glucose 123 mg/dl Calcium Level 7.6 mg/dl Assessment and Plan 71 year old female with abdominal pain, diarrhea and CT on admission with evidence of nonspecific inflammatory changes in the colon - worsening symptoms over hospital stay and repeat CT scan with ruptured appendix. Sepsis secondary Perforated Appendix s/p surgical intervention - open appendectomy on 12/28. - Elif drain in place - Continue Zosyn and Flagyl (switched to zosyn from cipro) - WBC coming down - PPI and H2 artem - Pain control - morphine sulfate, dilaudid - Antiemetics with zofran - diet advanced to clears - Encouraged ambulation and incentive spirometry HTN - SBP 163/80s this am, has been trending slightly high. Hypokalemia - resolved. HLD - On atorvastatin 20 mg PO qd Glaucoma - On Lumigan and Combigan drops Depression - On Lexapro 10 mg PO qd Tobacco use - Tobacco cessation counseling given DVT prophylaxis: Enoxaparin 40 mg SC q24h, enzo, scds Code Status: FULL CODE
[2016-12-30 15:19] VITALS: BP 134/72; PULSE 88; TEMP 36.9; O2SAT 98
[2016-12-30] MEDS: ATORVASTATIN 20 MG TAB PO SCH (21:30)
[2016-12-30] MEDS: RANITIDINE HCL 150 MG TAB PO SCH (21:30)
[2016-12-30] MEDS: BIMATOPROST 0.01% OP SOLN 2.5 ML BTL OPR SCH (21:31)
[2016-12-30 23:27] VITALS: BP 145/88; PULSE 76; TEMP 37; O2SAT 95
[2016-12-31] MEDS: D5W AND 1/2NSS + 20MEQ KCL 1,000 ML IV SCH ×3 (01:35→23:13)
[2016-12-31] MEDS: PIPERACILL/TAZOBAC IV 3.375 GM in DEXTROSE 5% 100ML 100 ML IV SCH ×3 (01:35→17:36)
[2016-12-31] MEDS: COMBIGAN~ORDER AWAITING ACTION SCH ×3 (07:20→23:13)
[2016-12-31] MEDS: HYDROmorphone INJ 0.5 MG/0.5 ML SYR IV PRN ×2 (07:52→19:01)
--- NOTE | 2016-12-31 07:53 | Surgery Progress Note ---
Surgery Progress Note Date of Service Dec 31, 2016. Subjective Post OP Day: 3 + bowel movement, + diet (clears), + feeling well, No flatus, No nausea Objective Vital Signs: Date Time Temp Pulse Resp B/P Pulse Ox O2 Delivery O2 Flow Rate FiO2 12/30/16 23:40 Room Air 12/30/16 23:27 37.0 76 18 145/88 95 Room Air 12/30/16 15:25 Room Air 12/30/16 15:19 36.9 88 18 134/72 98 Room Air 12/30/16 08:25 37.0 88 16 142/82 96 Room Air Abdomen: soft, + distended (less) Laboratory Results: Results Past 24 Hours Test 12/30/16 10:50 Range/Units White Blood Count 13.25 4.8-10.8 K/uL Red Blood Count 3.81 4.2-5.4 M/uL Hemoglobin 11.3 12.0-16.0 g/dL Hematocrit 34.8 37-47 % Mean Corpuscular Volume 91.3 80-100 fL Mean Corpuscular Hemoglobin 29.7 25-34 pg Mean Corpuscular Hemoglobin Concent 32.5 32-36 g/dl Platelet Count 402 130-400 K/uL Mean Platelet Volume 9.2 7.4-10.4 fL Neutrophils (%) (Auto) 82.7 % Lymphocytes (%) (Auto) 8.6 % Monocytes (%) (Auto) 7.2 % Eosinophils (%) (Auto) 0.8 % Basophils (%) (Auto) 0.1 % Neutrophils # (Auto) 10.96 1.4-6.5 K/uL Lymphocytes # (Auto) 1.14 1.2-3.4 K/uL Monocytes # (Auto) 0.96 0.11-0.59 K/uL Eosinophils # (Auto) 0.10 0-0.5 K/uL Basophils # (Auto) 0.01 0-0.2 K/uL RDW Standard Deviation 52.3 36.4-46.3 fL RDW Coefficient of Variation 15.6 11.5-14.5 % Immature Granulocyte % (Auto) 0.6 % Immature Granulocyte # (Auto) 0.08 0.00-0.02 K/uL Sodium Level 143 136-145 mmol/L Potassium Level 3.9 3.5-5.1 mmol/L Chloride Level 108 98-107 mmol/L Carbon Dioxide Level 32 21-32 mmol/L Anion Gap 3.0 3-11 mmol/L Blood Urea Nitrogen 2 7-18 mg/dl Creatinine 0.64 0.60-1.20 mg/dl Est Creatinine Clear Calc Drug Dose 60.0 ml/min Estimated GFR () 103.3 Estimated GFR (Non- 89.2 BUN/Creatinine Ratio 3.7 10-20 Random Glucose 123 70-99 mg/dl Calcium Level 7.6 8.5-10.1 mg/dl Assessment & Plan perf appendicitis WBC improved bowel function returning slowly, keep on clears ambulating leave elif and subQ drains IV zosyn seen with Dr. Sultana
[2016-12-31 07:55] VITALS: BP 160/90; PULSE 74; TEMP 36.6; O2SAT 92
[2016-12-31 07:57] VITALS: O2SAT 92
[2016-12-31] MEDS: ESCITALOPRAM OXALATE 10 MG TAB PO SCH (09:27)
[2016-12-31] MEDS: DICYCLOMINE HCL 20 MG TAB PO SCH ×4 (09:28→20:40)
[2016-12-31] MEDS: HEPARIN SOD 5000 UNIT/0.5 ML CARP SQ SCH ×2 (09:31→20:39)
[2016-12-31 09:43] LABS: BASO % 0.2 %; BASO ABS # 0.02 K/uL (0-0.2); COMPLETE YES; EOS % 1.6 %; HEMATOCRIT 35.6 % (37-47); IG% 0.3 %; LYMPH % 11.8 %; LYMPH ABS # 1.36 K/uL (1.2-3.4); MEAN CORPUSCULAR HEMOGLOBIN 30.2 pg (25-34); MEAN CORPUSCULAR HGB CONC 32.9 g/dl (32-36); MEAN PLATELET VOLUME 9.6 fL (7.4-10.4); MONO % 6.5 %; NEUT % 79.6 %; PLATELET COUNT 477 K/uL (130-400); RED BLOOD COUNT 3.87 M/uL (4.2-5.4); WHITE BLOOD COUNT 11.52 K/uL (4.8-10.8)
[2016-12-31] MEDS: PANTOprazole INJ 40 MG in SYRINGE 0 ML IV SCH (11:17)
--- NOTE | 2016-12-31 15:19 | Hospitalist Progress Note ---
Hospitalist Progress Note Date of Service Dec 31, 2016. Subjective no new concerns abd pain better. Constitutional: No fever Respiratory: No shortness of breath Cardiovascular: No chest pain Objective Vital Signs Date Time Temp Pulse Resp B/P Pulse Ox O2 Delivery O2 Flow Rate FiO2 12/31/16 07:57 92 Room Air 12/31/16 07:55 36.6 74 16 160/90 92 Room Air 12/31/16 07:20 Room Air 12/30/16 23:40 Room Air 12/30/16 23:27 37.0 76 18 145/88 95 Room Air 12/30/16 15:25 Room Air 12/30/16 15:19 36.9 88 18 134/72 98 Room Air Physical Exam General Appearance: no apparent distress (sitting in chair) Respiratory/Chest: lungs clear, no respiratory distress Cardiovascular: regular rate, rhythm Abdomen: normal bowel sounds, soft, + tenderness (incisional), + pertinent finding (elif drain +) Neurologic/Psychiatric: alert, oriented x 3 Skin: warm/dry Laboratory Results Last 24 Hours Test 12/31/16 09:14 White Blood Count 11.52 K/uL Red Blood Count 3.87 M/uL Hemoglobin 11.7 g/dL Hematocrit 35.6 % Mean Corpuscular Volume 92.0 fL Mean Corpuscular Hemoglobin 30.2 pg Mean Corpuscular Hemoglobin Concent 32.9 g/dl Platelet Count 477 K/uL Mean Platelet Volume 9.6 fL Neutrophils (%) (Auto) 79.6 % Lymphocytes (%) (Auto) 11.8 % Monocytes (%) (Auto) 6.5 % Eosinophils (%) (Auto) 1.6 % Basophils (%) (Auto) 0.2 % Neutrophils # (Auto) 9.16 K/uL Lymphocytes # (Auto) 1.36 K/uL Monocytes # (Auto) 0.75 K/uL Eosinophils # (Auto) 0.19 K/uL Basophils # (Auto) 0.02 K/uL RDW Standard Deviation 52.1 fL RDW Coefficient of Variation 15.5 % Immature Granulocyte % (Auto) 0.3 % Immature Granulocyte # (Auto) 0.04 K/uL Assessment and Plan 71 year old female with abdominal pain, diarrhea and CT on admission with evidence of nonspecific inflammatory changes in the colon - worsening symptoms over hospital stay and repeat CT scan with ruptured appendix. Sepsis secondary Perforated Appendix s/p surgical intervention - open appendectomy on 12/28. - Elif drain in place - Continue Zosyn and Flagyl (switched to zosyn from cipro) - WBC coming down - IVF - PPI and H2 artem - Pain control - morphine sulfate, dilaudid - Antiemetics with zofran - continue clears - Encouraged ambulation and incentive spirometry HTN - BP 140 to 160s systolic. follow HLD - On atorvastatin 20 mg PO qd Glaucoma - On Lumigan and Combigan drops Depression - On Lexapro 10 mg PO qd Tobacco use - Tobacco cessation counseling given DVT prophylaxis: Enoxaparin 40 mg SC q24h, enzo, scds Code Status: FULL CODE
[2016-12-31 15:22] VITALS: BP 150/73; PULSE 87; TEMP 37.1; O2SAT 96
[2016-12-31] MEDS: ATORVASTATIN 20 MG TAB PO SCH (20:40)
[2016-12-31] MEDS: RANITIDINE HCL 150 MG TAB PO SCH (20:40)
[2016-12-31] MEDS: BIMATOPROST 0.01% OP SOLN 2.5 ML BTL OPR SCH (20:41)
[2016-12-31 22:53] VITALS: BP 148/83; PULSE 78; TEMP 36.8; O2SAT 93
[2017-01-01] MEDS: PIPERACILL/TAZOBAC IV 3.375 GM in DEXTROSE 5% 100ML 100 ML IV SCH ×3 (02:25→17:56)
[2017-01-01] MEDS: COMBIGAN~ORDER AWAITING ACTION SCH ×3 (07:05→23:21)
[2017-01-01 07:11] VITALS: BP 154/84; PULSE 80; TEMP 37; O2SAT 96
--- NOTE | 2017-01-01 08:03 | SURGERY PROGRESS NOTE ---
DATE: 01/01/2017 DATE: 01/01/2017. Eneida feels much better. She said her abdomen is much softer. She had a good night's sleep. She is 4th postoperative day status post an open appendectomy for ruptured appendix. The path was noted. Her last vitals showed a temperature of 37, pulse 80, respirations 16, blood pressure 154/84, O2 sats 96 on room air. Her I\T\O she had 20 mL drainage through the Arash drainage, it is serosanguineous. She had 1 bowel movement yesterday. 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 Her abdomen is much softer. At this point, we will advance her diet, Hep-Lock her IV and keep her here for today. I will take the drain out of the subQ, probably take the drain out of her pelvis tomorrow and I would like to send her home probably another 5 days of Augmentin.
[2017-01-01] MEDS: DICYCLOMINE HCL 20 MG TAB PO SCH ×4 (09:00→21:12)
[2017-01-01] MEDS: ESCITALOPRAM OXALATE 10 MG TAB PO SCH (09:01)
[2017-01-01] MEDS: HEPARIN SOD 5000 UNIT/0.5 ML CARP SQ SCH ×2 (09:05→21:09)
[2017-01-01] MEDS: OXYCODONE/ACETAMINOPHEN 5-325 TAB PO PRN ×2 (09:44→23:16)
[2017-01-01 10:08] LABS: BASO % 0.2 %; BASO ABS # 0.02 K/uL (0-0.2); COMPLETE YES; EOS % 1.4 %; HEMATOCRIT 34.1 % (37-47); IG% 0.2 %; LYMPH % 13.6 %; LYMPH ABS # 1.13 K/uL (1.2-3.4); MEAN CELL VOLUME 90.5 fL (80-100); MEAN CORPUSCULAR HEMOGLOBIN 30.5 pg (25-34); MEAN CORPUSCULAR HGB CONC 33.7 g/dl (32-36); NEUT % 78.6 %; PLATELET COUNT 500 K/uL (130-400); RED BLOOD COUNT 3.77 M/uL (4.2-5.4); WHITE BLOOD COUNT 8.33 K/uL (4.8-10.8)
[2017-01-01] MEDS: PANTOprazole INJ 40 MG in SYRINGE 0 ML IV SCH (10:49)
[2017-01-01 11:13] LABS: O&P GIARDIA AG NOT DETECTED (NOT DETECTED); O&P SOURCE OTHER-STOOL
[2017-01-01 15:29] VITALS: BP 155/90; PULSE 76; TEMP 37; O2SAT 96
--- NOTE | 2017-01-01 17:18 | Hospitalist Progress Note ---
Hospitalist Progress Note Date of Service Jan 01, 2017. Subjective did well overnight Constitutional: No fever Respiratory: No shortness of breath Cardiovascular: No chest pain Abdomen: + pain (controlled), No nausea Objective Vital Signs Date Time Temp Pulse Resp B/P Pulse Ox O2 Delivery O2 Flow Rate FiO2 01/01/17 15:29 37.0 76 16 155/90 96 Room Air 01/01/17 07:30 Room Air 01/01/17 07:11 37.0 80 16 154/84 96 Room Air 12/31/16 23:10 Room Air 12/31/16 22:53 36.8 78 16 148/83 93 Room Air Physical Exam General Appearance: no apparent distress Respiratory/Chest: lungs clear, no respiratory distress Cardiovascular: regular rate, rhythm Abdomen: normal bowel sounds, non tender, soft Neurologic/Psychiatric: alert, oriented x 3 Skin: warm/dry Laboratory Results Last 24 Hours Test 01/01/17 09:50 White Blood Count 8.33 K/uL Red Blood Count 3.77 M/uL Hemoglobin 11.5 g/dL Hematocrit 34.1 % Mean Corpuscular Volume 90.5 fL Mean Corpuscular Hemoglobin 30.5 pg Mean Corpuscular Hemoglobin Concent 33.7 g/dl Platelet Count 500 K/uL Mean Platelet Volume 9.0 fL Neutrophils (%) (Auto) 78.6 % Lymphocytes (%) (Auto) 13.6 % Monocytes (%) (Auto) 6.0 % Eosinophils (%) (Auto) 1.4 % Basophils (%) (Auto) 0.2 % Neutrophils # (Auto) 6.54 K/uL Lymphocytes # (Auto) 1.13 K/uL Monocytes # (Auto) 0.50 K/uL Eosinophils # (Auto) 0.12 K/uL Basophils # (Auto) 0.02 K/uL RDW Standard Deviation 51.4 fL RDW Coefficient of Variation 15.3 % Immature Granulocyte % (Auto) 0.2 % Immature Granulocyte # (Auto) 0.02 K/uL Assessment and Plan 71 year old female with abdominal pain, diarrhea and CT on admission with evidence of nonspecific inflammatory changes in the colon - worsening symptoms over hospital stay and repeat CT scan with ruptured appendix. Sepsis secondary Perforated Appendix s/p surgical intervention - open appendectomy on 12/28. - Arash drain in place - Continue Zosyn and Flagyl (switched to zosyn from cipro) - IVF - d/sujata - PPI and H2 artem - Pain controlled - Diet advanced to regular - Encouraged ambulation and incentive spirometry HTN - BP 140 to 160s systolic. follow HLD - On atorvastatin 20 mg PO qd Glaucoma - On Lumigan and Combigan drops Depression - On Lexapro 10 mg PO qd Tobacco use - Tobacco cessation counseling given DVT prophylaxis: Enoxaparin 40 mg SC q24h, enzo, scds Code Status: FULL CODE Anticipate d/c home in am
[2017-01-01] MEDS: ATORVASTATIN 20 MG TAB PO SCH (21:12)
[2017-01-01] MEDS: BIMATOPROST 0.01% OP SOLN 2.5 ML BTL OPR SCH (21:12)
[2017-01-01] MEDS: RANITIDINE HCL 150 MG TAB PO SCH (21:12)
[2017-01-01] MEDS: SIMETHICONE 80 MG CHEW PO PRN (21:14)
[2017-01-01 23:48] VITALS: BP 158/89; PULSE 74; TEMP 36.9; O2SAT 93
[2017-01-01 23:53] VITALS: BP 166/89
[2017-01-02] MEDS: PIPERACILL/TAZOBAC IV 3.375 GM in DEXTROSE 5% 100ML 100 ML IV SCH ×2 (01:49→10:41)
[2017-01-02] MEDS: COMBIGAN~ORDER AWAITING ACTION SCH ×2 (07:01→16:00)
[2017-01-02] MEDS ORDERED: OXYC-57 PO (07:25)
[2017-01-02] MEDS ORDERED: AMOX875T PO (07:29)
--- NOTE | 2017-01-02 07:29 | Discharge Instructions ---
Discharge Instructions Date of Service Jan 02, 2017. Admission Reason for Admission: Colitis Discharge Discharge Diagnosis / Problem: perforated diverticulitis Discharge Goals Goal(s): Decrease discomfort Activity Recommendations Activity Limitations: as noted below Lifting Limitations: no more than 10 pounds Shower/Bathe: no limitations Driving or Machine Use: resume 3 days after discharge . Instructions / Follow-Up Instructions / Follow-Up Dr. Sultana in 1 week, call [phone] to schedule, [facility] Current Hospital Diet Patient's current hospital diet: Regular Diet Discharge Diet Recommended Diet: Regular Diet Procedures Procedures Performed: Open appendectomy Pending Studies Studies pending at discharge: no Medical Emergencies . Who to Call and When: Medical Emergencies: If at any time you feel your situation is an emergency, please call 911 immediately. . Non-Emergent Contact Non-Emergency issues call your: Surgeon Call Non-Emergent contact if: you have a fever, temperature is above 101.5, your pain is not controlled, wound has increased redness, wound has increased pain . "Provider Documentation" section prepared by Simon Mcmullen. VTE Core Measure Inpt VTE Proph given/why not?: SCD's
[2017-01-02 07:49] VITALS: BP 171/90; PULSE 77; TEMP 37; O2SAT 95
--- NOTE | 2017-01-02 07:56 | SURGERY PROGRESS NOTE ---
DATE: 01/02/2017 DATE: 01/02/2017. Eneida is still fine. She feels like she is getting better every day. She had a fairly good day yesterday. Her last temperature 36.9, pulse 74, respirations 17, blood pressure 166/89, O2 sats 93 on room air. I\T\O no urine was registered as far as output. Her Arash drainage is 25 mL of serosanguineous, nonbilious. She did have a bowel movement the day before. She is passing flatus. The abdomen is soft, there is no tenderness. It is still slightly distended but improving. The patient is anxious to go home and certainly she can be discharged. From my point of view, I would keep her on broad-spectrum antibiotics, probably at this point augment may be sufficient. We will see her back in the office in 1 week. The drain will be removed today. She can shower. No lifting anything heavier than [address] not drive for a week until we see her in the office.
[2017-01-02] MEDS: DICYCLOMINE HCL 20 MG TAB PO SCH ×2 (08:34→12:23)
[2017-01-02] MEDS: OXYCODONE/ACETAMINOPHEN 5-325 TAB PO PRN (08:34)
[2017-01-02] MEDS: HEPARIN SOD 5000 UNIT/0.5 ML CARP SQ SCH (08:34)
[2017-01-02] MEDS: ESCITALOPRAM OXALATE 10 MG TAB PO SCH (08:35)
[2017-01-02 09:15] LABS: HEMATOCRIT 37.7 % (37-47); MEAN CORPUSCULAR HEMOGLOBIN 29.4 pg (25-34); MEAN CORPUSCULAR HGB CONC 32.6 g/dl (32-36); MEAN PLATELET VOLUME 8.8 fL (7.4-10.4); PLATELET COUNT 576 K/uL (130-400); RED BLOOD COUNT 4.19 M/uL (4.2-5.4); WHITE BLOOD COUNT 8.15 K/uL (4.8-10.8)
[2017-01-02 09:38] LABS: BASO % 0.5 %; BASO ABS # 0.04 K/uL (0-0.2); COMPLETE YES; EOS % 2.1 %; IG% 0.4 %; LYMPH % 20.4 %; LYMPH ABS # 1.66 K/uL (1.2-3.4); MONO % 8.2 %; NEUT % 68.4 %
[2017-01-02] MEDS: PANTOprazole INJ 40 MG in SYRINGE 0 ML IV SCH (10:41)
[2017-01-02 11:47] VITALS: BP 151/89; PULSE 74; TEMP 36.8; O2SAT 92
[2017-01-02 12:50] VITALS: BP 151/89; PULSE 74; TEMP 36.8; O2SAT 92
--- NOTE | 2017-01-02 12:53 | Discharge Summary ---
Discharge Summary Date of Service Jan 02, 2017. Discharge Summary Admission Date: Dec 22, 2016 at 18:18 Discharge Date: Jan 02, 2017 Discharge Disposition: Home Principal Diagnosis: Perforated Appendix Immunizations: Have You Had Influenza Vaccine: Yes Influenza Vaccine Date: Jul 14, 2011 History of Tetanus Vaccine?: Yes Tetanus Immunization Date: Oct 08, 2010 History of Pneumococcal: Yes Pneumococcal Date: Oct 14, 2010 History of Hepatitis B Vaccine: Yes Hepatitis Immunization Date: Oct 14, 2007 Procedures: Open Appendicectomy by Dr. Sultana Consultations: [facility] surgery Medication Reconciliation New Medications: Amoxicillin & Pot Clavulanate (Augmentin 875-125 mg) 1 Tab Tab 875 MG PO BID, #10 TAB Oxycodone/Acetaminophen 5MG/325MG (Percocet 5MG/325MG) Tab 1-2 TABLETS PO Q4H PRN for Pain, #20 TAB Continued Medications: Aspirin (Aspirin Ec) 81 Mg Tab 81 MG PO QPM Atorvastatin (Lipitor) 20 Mg Tab 20 MG PO HS, TAB Bimatoprost (Lumigan) 0.01 % Val 1 DROPS OPR HS Brimonidine Tartrate-Timolol M (Combigan) 1 Val Val 1 DROP OPR BID Docusate Sodium (Colace) 100 Mg Cap 1 CAP PO PRN for 30 Days, CAP Escitalopram (Lexapro) 10 Mg Tab 10 MG PO QAM, 0 Refills Naproxen (Aleve) 220 Mg Tab 220 MG PO DAILY PRN for Pain Discharge Exam Last Resulted CBC 01/02/17 09:00 Red Blood Count 4.19, Mean Corpuscular Volume 90.0, Mean Corpuscular Hemoglobin 29.4, Mean Corpuscular Hemoglobin Concent 32.6, Mean Platelet Volume 8.8, Neutrophils (%) (Auto) 68.4, Lymphocytes (%) (Auto) 20.4, Monocytes (%) (Auto) 8.2, Eosinophils (%) (Auto) 2.1, Basophils (%) (Auto) 0.5, Neutrophils # (Auto) 5.58, Lymphocytes # (Auto) 1.66, Monocytes # (Auto) 0.67, Eosinophils # (Auto) 0.17, Basophils # (Auto) 0.04 Last Resulted BMP 12/30/16 10:50 Review of Systems: Constitutional: No fever Respiratory: No shortness of breath Cardiovascular: No chest pain Abdomen: No nausea, No pain, No vomiting Musculoskeletal: No joint pain Physical Exam: General Appearance: no apparent distress Respiratory/Chest: lungs clear, no respiratory distress Cardiovascular: regular rate, rhythm Abdomen / GI: normal bowel sounds, non tender, soft, + tenderness ( incisional) Neurologic/Psychiatric: alert, oriented x 3 Skin: warm/dry Hospital Course 71 year old female with abdominal pain, diarrhea and CT on admission with evidence of nonspecific inflammatory changes in the colon - worsening symptoms over hospital stay and repeat CT scan showed ruptured appendix and underwent open appendectomy by Dr. Sultana on 12/28/16. Sepsis secondary Perforated Appendix s/p surgical intervention - underwent open appendectomy on 12/28. - Arash drain removed on day of discharge. - Received IV fluids and antibiotics. - Diet advanced and did well. - Home on augmentin . - Instructed - she can shower. No lifting anything heavier than [address] drive for a week until seen by surgery in the office. Total Time Spent: Greater than 30 minutes (35) This includes examination of the patient, discharge planning, medication reconciliation, and communication with other providers. Discharge Instructions Please refer to the electronic Patient Visit Report (Discharge Instructions) for additional information. Additional Copies To Traci Yanes M.D.
== END 2017-01-02 16:25 | disposition home or self-care (01) | DRG 853 ==
LOC: ENRESERVTM → ENRESERVDT → C.EDB 10:12 → C.MSW 18:18
PROVIDERS: ADMIT Family Medicine; ATTEND Family Medicine
PROC: 0DTJ0ZZ Resection of Appendix, Open Approach (ICD-10-PCS; principal; 2016-12-28 07:42)
DX: A41.9 Sepsis, unspecified organism (principal); K35.2 Acute appendicitis with generalized peritonitis; E78.5 Hyperlipidemia, unspecified; E87.6 Hypokalemia; H40.9 Unspecified glaucoma; I10 Essential (primary) hypertension; F32.9 Major depressive disorder, single episode, unspecified; Z79.82 Long term (current) use of aspirin; Z79.899 Other long term (current) drug therapy; Z98.1 Arthrodesis status; F17.210 Nicotine dependence, cigarettes, uncomplicated

== ENCOUNTER → 2017-03-18 | Outpatient (CLI) | payer OTHER, MEDICARE ==
[~2017-03-18] MED LIST changes: +BIMA0.01 OPR; -BIMA0.038 OPR; +NAPR1TAB9 PO
[2017-03-18 13:40] LABS: CHOLESTEROL/HDL RATIO 3.6
== END | disposition home or self-care (01) ==
LOC: C.LABMFLN 09:45
PROVIDERS: ATTEND Family Medicine
DX: E78.5 Hyperlipidemia, unspecified (principal)

== ENCOUNTER → 2017-10-22 | Outpatient (CLI) | payer OTHER, MEDICARE ==
[~2017-10-22] MED LIST changes: -OXYC-57 PO
[2017-10-22 18:06] LABS: BASO % 0.2 %; BASO ABS # 0.02 K/uL (0-0.2); EOS % 0.7 %; EOS ABS # 0.06 K/uL (0-0.5); HEMOGLOBIN 14.8 g/dL (12.0-16.0); IG# 0.01 K/uL (0.00-0.02); LYMPH ABS # 1.95 K/uL (1.2-3.4); MEAN CORPUSCULAR HEMOGLOBIN 31.9 pg (25-34); MEAN CORPUSCULAR HGB CONC 32.9 g/dl (32-36); MONO ABS # 0.51 K/uL (0.11-0.59); NEUT ABS # 5.91 K/uL (1.4-6.5); PLATELET COUNT 295 K/uL (130-400); RED CELL DISTRIBUTION WIDTH CV 14.5 % (11.5-14.5); RED CELL DISTRIBUTION WIDTH SD 51.5 fL (36.4-46.3); WHITE BLOOD COUNT 8.46 K/uL (4.8-10.8)
[2017-10-22 18:27] LABS: ALBUMIN 4.1 gm/dl (3.4-5.0); ALT/SGPT 22 U/L (12-78); AST/SGOT 15 U/L (15-37); BLOOD UREA NITROGEN 18 mg/dl (7-18); CALCIUM 8.8 mg/dl (8.5-10.1); CARBON DIOXIDE 29 mmol/L (21-32); CREATININE 0.66 mg/dl (0.60-1.20); GLUCOSE 88 mg/dl (70-99); SODIUM 138 mmol/L (136-145)
[2017-10-22 18:37] LABS: ALKALINE PHOSPHATASE 98 U/L (45-117); CHOLESTEROL 205 mg/dl (0-200); LDL CHOLESTEROL CALCULATED 114 mg/dl; TOTAL PROTEIN 7.7 gm/dl (6.4-8.2)
== END | disposition home or self-care (01) ==
LOC: C.LABMFLN 14:27
PROVIDERS: ATTEND Family Medicine
DX: F32.9 Major depressive disorder, single episode, unspecified (principal); E78.5 Hyperlipidemia, unspecified

== ENCOUNTER → 2017-11-20 | Outpatient (CLI) | payer OTHER, MEDICARE ==
--- NOTE | 2017-11-24 07:56 | MAMMOGRAPHY REPORT ---
BILATERAL DIGITAL SCREENING MAMMOGRAM TOMOSYNTHESIS WITH CAD: 11/20/2017 CLINICAL HISTORY: Routine screening. Patient has no complaints. TECHNIQUE: Breast tomosynthesis in addition to standard 2D mammography was performed. Current study was also evaluated with a Computer Aided Detection (CAD) system. COMPARISON: Comparison is made to exams dated: 09/30/2016 mammogram, 09/14/2015 mammogram, 08/08/2013 mammogram, 09/06/2014 mammogram, 01/31/2013 mammogram, and [facility] BREAST COMPOSITION: There are scattered areas of fibroglandular density in both breasts. FINDINGS: There are scattered and grouped benign-appearing calcifications in both breasts. No suspi cious mass, architectural distortion or cluster of new, suspicious microcalcifications is seen. IMPRESSION: ACR BI-RADS CATEGORY 1: NEGATIVE There is no mammographic evidence of malignancy. A 1 year screening mammogram is recommended. The pa tient will receive written notification of the results. Approximately 10% of breast cancers are not detected with mammography. A negative mammographic report should not delay biopsy if a clinically suggestive mass is present. Carmen Oliva M.D. ay/:11/23/2017 18:10:10 Custody Assistant: Brandee DEL VALLE(R)(M), [facility] letter sent: Normal 1/2 BI-RADS Code: ACR BI-RADS Category 1: Negative
== END | disposition home or self-care (01) ==
LOC: C.MAMM 13:45
PROVIDERS: ATTEND Family Medicine
DX: Z12.31 Encounter for screening mammogram for malignant neoplasm of breast (principal)